=== PATIENT | female | born 1960 | race Caucasian/White ===

== ENCOUNTER 2017-08-10 09:07 | Inpatient (IN) ==
--- NOTE | 2017-08-10 09:51 | Emergency Department Note ---
Wound/Laceration HPI - General Chief Complaint: Wound/Laceration Stated Complaint: Diabetic ulcer Time Seen by Provider: 08/10/17 09:37 Source: patient Mode of arrival: wheelchair Limitations: no limitations - History of Present Illness HPI Narrative: This patient was sent to the ER from the wound care clinic for diabetic ulcer that is failing outpatient oral antibiotic treatment. Dr. Heredia is requesting admission and IV antibiotics. Otherwise feels well. Type 1 diabetes since age 17. She has had a right below-knee amputation. sHe has had this diabetic ulcer on the left zarco for a while. - Related Data Home Medications Medication Instructions Recorded Confirmed Insulin Lispro [Humalog] 0.7 units SQ Q1 08/20/15 08/10/17 Clopidogrel [Plavix] 75 mg PO DAILY 10/16/15 08/10/17 Aspirin [Adult Low Dose Aspirin EC] 81 mg PO DAILY 04/18/16 08/10/17 Eszopiclone [Lunesta] 3 mg PO DAILY 04/18/16 08/10/17 Ferrous Gluconate [Fergon] 324 mg PO BID 04/18/16 08/10/17 Furosemide [Lasix] 20 mg PO BID 04/18/16 08/10/17 HYDROcodone/APAP 5/325MG [[place] 1 - 2 tab PO Q4HP PRN 04/18/16 08/10/17 5/325Mg] Metoprolol Tartrate [Lopressor] 25 mg PO BID 04/18/16 08/10/17 Pregabalin [Lyrica] 225 mg PO TID 04/18/16 08/10/17 Sertraline [Zoloft] 100 mg PO DAILY 04/18/16 08/10/17 Sub-Q Insulin Pump, Cgm System 0.7 unit SQ Q1H 04/18/16 08/10/17 Atorvastatin [Lipitor] 20 mg PO HS 06/22/16 08/10/17 Lisinopril [Zestril] 5 mg PO DAILY 06/22/16 08/10/17 Allergies Allergy/AdvReac Type Severity Reaction Status Date / Time Hydromorphone AdvReac Intermediate Hallucinati Verified 08/10/17 09:10 ng Zolpidem [From Ambien] AdvReac Mild Other Verified 08/10/17 09:10 Review of Systems All systems ED: reviewed and negative except as stated. Past Medical History - Past Medical History [facility] Narrative: Medical History Congestive heart failure (Acute) Bilateral pleural effusion (Acute) Dilated cardiomyopathy (Acute) Edema, leg (Acute) SOB (shortness of breath) (Acute) Wound dehiscence (Acute) Alyssa infection of genital region (Acute) Delayed surgical wound healing (Acute) Cellulitis and abscess of leg (Acute) Right BKA infection (Acute) Cellulitis of right anterior lower leg (Acute) Treatment (Acute) Amputation stump infection (Acute) Anemia (Acute) Epigastric abdominal pain (Acute) Dyspepsia (Acute) Medical history: Reports: COPD, coronary artery disease, diabetes (Type 1 ID, HgbA1c in July greater then . ), other (Neuropathy of bilateral lower extremities. Chronic non-healing wounds of lower extremities. Bilateral tinea pedis. Retinopathy of diabetes.) Surgical history ED: Reports: coronary bypass (CABG), other (right foot amputation) Psychiatric history: Reports: no psych history [employer] history: Reports: bilateral tubal ligation - Social History smoking status: Former smoker Alcohol use: Reports: None Drug use: Reports: none Physical Exam Photos of the ulcer are attached to the chart along with the complete description by Dr. Heredia. - General Limitations: no limitations General appearance: alert, in no apparent distress - Head Head exam: atraumatic, normocephalic - Eye Eye exam: Present: normal appearance - ENT ENT exam: normal exam - Neck Neck exam: Present: normal inspection - Chest Chest inspection: Present: normal inspection - Respiratory Respiratory exam: Present: normal lung sounds bilaterally - Cardiovascular Cardiovascular exam: Present: regular rate, normal rhythm, normal heart sounds - Abdominal Exam Abdominal exam: Present: soft. Absent: distention, tenderness - Neurological Exam Neurological exam: Present: alert, oriented X3 - Psychiatric Psychiatric exam: Present: normal affect, normal mood - Skin Skin exam: Present: warm, dry, other Course Vital Signs Temperature 97.0 F 08/10/17 09:08 Pulse Rate 64 08/10/17 09:08 Respiratory Rate 14 08/10/17 09:08 Blood Pressure 126/63 08/10/17 09:08 Pulse Oximetry (%) 95 08/10/17 09:08 Temperature 97.0 F 08/10/17 09:08 Pulse Rate 64 08/10/17 09:08 Respiratory Rate 14 08/10/17 09:08 Blood Pressure 126/63 08/10/17 09:08 Pulse Oximetry (%) 95 08/10/17 09:08 Wound/Laceration - Lab Data Lab results reviewed: Yes I reviewed the patient's lab results. Result diagrams: 08/10/17 09:53 08/10/17 09:53 Lab Results 08/10/17 08/10/17 Range/Units 09:53 09:53 WBC 11.0 (4.5-11.0) K/mcL RBC 4.31 (4.00-5.20) M/mcL Hgb 12.7 (12.0-15.0) g/dL Hct 37.5 (36.0-48.0) % MCV 87.1 (80.0-100.0) fL MCH 29.4 (26.0-34.0) pg MCHC 33.7 (31.0-36.0) g/dL RDW 14.4 (11.5-14.5) % Plt Count 346 (140-440) K/mcL MPV 9.9 (7.4-10.4) fL Gran % 67.5 (38.0-78.0) % Lymph % (Auto) 22.0 (15.5-49.0) % Mccreary % (Auto) 7.6 (1.0-12.0) % Eos % (Auto) 2.2 (0.0-7.0) % Baso % (Auto) 0.7 (0.0-2.0) % Gran # 7.4 (1.8-8.0) K/mcL Lymph # (Auto) 2.4 (1.5-4.8) K/mcL Mccreary # (Auto) 0.8 (0.1-0.9) K/mcL Eos # (Auto) 0.2 (0.0-0.7) K/mcL Baso # (Auto) 0.1 (0.0-0.3) K/mcL Sodium 142 (133-145) mmol/L Potassium 4.2 (3.3-5.1) mmol/L Chloride 104 (96-108) mmol/L Carbon Dioxide 25 (22-30) mmol/L Anion Gap 13.0 (8-16) BUN 40 H (6-20) mg/dl Creatinine 1.5 H (0.6-1.1) mg/dl GFR Calculation 39 Glucose 68 L (70-105) mg/dL Hemoglobin A1c 7.2 H (4.0-6.0) % HGB Estim Average Glucose 160 mg/dL Calcium 9.0 (8.6-10.4) mg/dl Total Bilirubin 0.2 (0.0-1.0) mg/dL AST 19 (0-37) U/l ALT 15 (0-40) U/l Alkaline Phosphatase 117 (39-117) U/L C-React Prot High Sens 11.1 H (1.0-3.0) mg/L Total Protein 7.3 (5.9-8.4) gm/dL Albumin 4.1 (3.2-5.2) gm/dL Globulin 3.2 (2.2-3.7) gm/dL Albumin/Globulin Ratio 1.3 (1.0-2.3) Prealbumin 22.3 (20-40) mg/dl TSH 0.84 (0.27-5.01) uIU/ml Disposition Pt seen by DENTAL LABORATORY WORKER/PA only: No Clinical Impression: Cellulitis and abscess of leg Disposition: Xfer As Inpt ([facility]) Referrals: Traci Virgen MD [Primary Care Provider] - Time of Disposition: 11:47
[2017-08-10] MEDS ORDERED: cefTRIAXone 2 GM in DEXTROSE 5% IN WATER 50 ML IV ONE (09:55)
[2017-08-10] MEDS ORDERED: DAPTOmycin 500 MG VIAL IV SCH (10:00)
[2017-08-10 10:44] LABS: Basophils # (Auto) 0.1 K/mcL (0.0-0.3); Basophils % (Auto) 0.7 % (0.0-2.0); Eosinophils # (Auto) 0.2 K/mcL (0.0-0.7); Eosinophils % (Auto) 2.2 % (0.0-7.0); Granulocytes % (Auto) 67.5 % (38.0-78.0); Lymphocytes # (Auto) 2.4 K/mcL (1.5-4.8); Mean Cell Volume 87.1 fL (80.0-100.0); Mean Corpuscular HGB Conc 33.7 g/dL (31.0-36.0); Mean Corpuscular Hemoglobin 29.4 pg (26.0-34.0); Monocytes # (Auto) 0.8 K/mcL (0.1-0.9); Monocytes % (Auto) 7.6 % (1.0-12.0); Platelet Count 346 K/mcL (140-440); RBC 4.31 M/mcL (4.00-5.20); Red Cell Distribution Width 14.4 % (11.5-14.5)
[2017-08-10 11:13] LABS: ALT/SGPT 15 U/l (0-40); Albumin 4.1 gm/dL (3.2-5.2); Albumin/Globulin Ratio 1.3 (1.0-2.3); Alkaline Phosphatase 117 U/L (39-117); Blood Urea Nitrogen 40 mg/dl (6-20); CRP,High Sensitivity 11.1 mg/L (1.0-3.0)
[2017-08-10 11:16] LABS: Estimated Average Glucose(eAG) 160 mg/dL; Hemoglobin A1C 7.2 % HGB (4.0-6.0)
[2017-08-10 11:33] LABS: Prealbumin 22.3 mg/dl (20-40)
[2017-08-10] MEDS ORDERED: oxyCODONE HCL 5 MG TABLET PO PRN (14:03)
[2017-08-10] MEDS ORDERED: NALOXONE HCL 0.4 MG/ML VIAL IV PRN (14:03)
[2017-08-10] MEDS ORDERED: ALBUTEROL SULFATE 2.5 MG/3 ML NEBULIZER NEB PRN (14:03)
[2017-08-10] MEDS ORDERED: DEXTROSE 50% 50 ML VIAL IV PRN (14:03)
[2017-08-10] MEDS ORDERED: DEXTROSE 31 GM ORAL.SUSP PO PRN (14:03)
[2017-08-10] MEDS ORDERED: MAG HYDROX/AL HYDROX/SIMETH 30 ML ORAL.SUSP PO PRN (14:03)
[2017-08-10] MEDS ORDERED: ACETAMINOPHEN 325 MG TABLET PO PRN (14:03)
[2017-08-10] MEDS ORDERED: ONDANSETRON 4 MG/2 ML VIAL IV PRN (14:03)
[2017-08-10] MEDS ORDERED: VANCOMYCIN PER PHARMACY IV SCH (14:18)
[2017-08-10] MEDS: PIPERACILLIN SODIUM/TAZOBACTAM 3.375 GM in DEXTROSE 5% IN WATER 50 ML IV SCH ×2 (15:20→22:15)
[2017-08-10] MEDS: 0.9 % SODIUM CHLORIDE 10 ML SYRINGE IV SCH ×2 (15:20→20:48)
[2017-08-10] MEDS: VANCOMYCIN 1,500 MG in 0.9 % SODIUM CHLORIDE 500 ML IV SCH (15:58)
[2017-08-10] MEDS ORDERED: INSULIN LISPRO 1 UNIT/0.01 ML UNIT SQ SCH (17:00)
--- NOTE | 2017-08-10 17:18 | General Surgery Consult Note ---
History of Present Illness Patient information: Note initiated : 08/10/17 at 5:09 pm Service Date, if different from initiated Date: [] Patient: Mai Colon 56 y/o F admitted on 08/10/17 for Diabetic ulcer. Chief Complaint: [] Non Healing wound with ACUTE cellulitis and csssi left leg. Failed out patient treatment with Amoxil. Other co morbid conditions. IDDM, CAD, PAD ( RAJINDER 0.4 LLE ) S/P Right BKA Patient bumped her left leg at home few days ago. This led to swelling, redness , throbbing pain and low grade3 fever. Oral antibiotics did not help. Seen by PCP Dr. Traci Virgen MD. Patient referred to wound center for further evaluation and management. Local debridement and biopsy reveals fat necrosis and patient NOW has flare up of csssi with SPREADING cellulitis. Hence referred her to ER for further evaluation and observation in hospital. If she does NOT respond to IV antibiotics and local wound care, she will need OR surgical debridement. Patient is well aware of complications she had in past after emergency cardiac surgery, followed by multiple events related to PAD Right LE and finally a BKA. Medications and Allergies Home Medications Medication Instructions Recorded Confirmed Type Insulin Lispro [Humalog] 0.7 units SQ Q1 08/20/15 08/10/17 History Clopidogrel [Plavix] 75 mg PO DAILY 10/16/15 08/10/17 History Aspirin [Adult Low Dose Aspirin EC] 81 mg PO DAILY 04/18/16 08/10/17 History Eszopiclone [Lunesta] 3 mg PO HS 04/18/16 08/10/17 History Ferrous Gluconate [Fergon] 324 mg PO BID 04/18/16 08/10/17 History Furosemide [Lasix] 40 mg PO DAILY 04/18/16 08/10/17 History HYDROcodone/APAP 5/325MG [[place] 1 - 2 tab PO Q4HP PRN 04/18/16 08/10/17 History 5/325Mg] Metoprolol Tartrate [Lopressor] 25 mg PO BID 04/18/16 08/10/17 History Pregabalin [Lyrica] 225 mg PO BID 04/18/16 08/10/17 History Sertraline [Zoloft] 100 mg PO DAILY 04/18/16 08/10/17 History Atorvastatin [Lipitor] 20 mg PO HS 06/22/16 08/10/17 History Lisinopril [Zestril] 5 mg PO Q48 06/22/16 08/10/17 History Ascorbic Acid [Vitamin C] 1 tab PO DAILY 08/10/17 08/10/17 History Furosemide [Lasix] 20 mg PO HS 08/10/17 08/10/17 History Insulin Pump Cartridge [Cartridge 0.75 units SQ Q1 08/10/17 08/10/17 History Stamped] Multivitamin [One Daily] 1 tab PO DAILY 08/10/17 08/10/17 History Vitamin D3 [Vitamin D3] 1 tab PO DAILY 08/10/17 08/10/17 History Allergies Allergy/AdvReac Type Severity Reaction Status Date / Time Hydromorphone AdvReac Intermediate Hallucinati Verified 08/10/17 09:10 ng Zolpidem [From Ambien] AdvReac Mild Other Verified 08/10/17 09:10 Exam Temp Pulse Resp BP Pulse Ox 98.6 F 80 16 116/64 92 08/10/17 14:06 08/10/17 14:06 08/10/17 14:06 08/10/17 14:06 08/10/17 14:06 - General physical appearance well developed, well nourished, no distress, moderate pain, chronically ill, obese - Eyes PERRL, normal ocular movement - ENT normal pinna, normal nares, normal mucosa, no congestion - Head Head exam IM: Present: atraumatic, normal inspection, normocephalic - Neck no masses, no bruits, trachea midline, no lymphadectomy, no venous distension - Cardiovascular Cardiovascular exam IM: Present: normal rate and rhythm - Respiratory normal expansion, normal respiratory effort, clear to auscultation - Abdomen Abdomen: Present: soft, non tender, bowel sounds - Integumentary Present: other (RIGHT BKA. Healed surgical wounds. LEFT LEG Lower half diabetes, traumatic ulcer with necrotic adherent eschar in the mid portion with surrounding periwound tenderness and cellulitis as marked out on the leg. THis area of cellulitis extends proximally for 3 to 4 CMS. NO crepitus noted. ) - Neurologic Present: normal coordination, other (No focal neurological deficits noted. She had diabetes withperipheral neuropahty of left foot and ankle . ) - Musculoskeletal Present: other (RIght BKA prosthesis , ) - Psychiatric Present: oriented to time, oriented to person, oriented to place, speech is normal, memory intact Results - Labs 08/11/17 07:39 08/11/17 07:39 Abnormal lab results 08/10/17 Range/Units 09:53 BUN 40 H (6-20) mg/dl Creatinine 1.5 H (0.6-1.1) mg/dl Glucose 68 L (70-105) mg/dL Hemoglobin A1c 7.2 H (4.0-6.0) % HGB C-React Prot High Sens 11.1 H (1.0-3.0) mg/L Diabetes panel 08/10/17 Range/Units 09:53 Sodium 142 (133-145) mmol/L Potassium 4.2 (3.3-5.1) mmol/L Chloride 104 (96-108) mmol/L Carbon Dioxide 25 (22-30) mmol/L BUN 40 H (6-20) mg/dl Creatinine 1.5 H (0.6-1.1) mg/dl Glucose 68 L (70-105) mg/dL Hemoglobin A1c 7.2 H (4.0-6.0) % HGB Calcium 9.0 (8.6-10.4) mg/dl AST 19 (0-37) U/l ALT 15 (0-40) U/l Alkaline Phosphatase 117 (39-117) U/L Total Protein 7.3 (5.9-8.4) gm/dL Albumin 4.1 (3.2-5.2) gm/dL Thyroid panel 08/10/17 Range/Units 09:53 TSH 0.84 (0.27-5.01) uIU/ml Calcium panel 08/10/17 Range/Units 09:53 Calcium 9.0 (8.6-10.4) mg/dl Albumin 4.1 (3.2-5.2) gm/dL Pituitary panel 08/10/17 Range/Units 09:53 Sodium 142 (133-145) mmol/L Potassium 4.2 (3.3-5.1) mmol/L Chloride 104 (96-108) mmol/L Carbon Dioxide 25 (22-30) mmol/L BUN 40 H (6-20) mg/dl Creatinine 1.5 H (0.6-1.1) mg/dl Glucose 68 L (70-105) mg/dL Calcium 9.0 (8.6-10.4) mg/dl TSH 0.84 (0.27-5.01) uIU/ml Adrenal panel 08/10/17 Range/Units 09:53 Sodium 142 (133-145) mmol/L Potassium 4.2 (3.3-5.1) mmol/L Chloride 104 (96-108) mmol/L Carbon Dioxide 25 (22-30) mmol/L BUN 40 H (6-20) mg/dl Creatinine 1.5 H (0.6-1.1) mg/dl Glucose 68 L (70-105) mg/dL Calcium 9.0 (8.6-10.4) mg/dl Total Bilirubin 0.2 (0.0-1.0) mg/dL AST 19 (0-37) U/l ALT 15 (0-40) U/l Alkaline Phosphatase 117 (39-117) U/L Total Protein 7.3 (5.9-8.4) gm/dL Albumin 4.1 (3.2-5.2) gm/dL All other labs normal. Assessment and Plan (1) Cellulitis of left leg Status: Acute Priority: High Comment: PATIENT IS HIGH RISK for csssi and SEPSIS syndrome.. 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 (2) Cellulitis and abscess of leg Assessment: CSSSI Left lower leg and cellulitis. Plan: I V antibiotics and aggressive local wound care with WARM K PAD compress topically. ON for 20 mts and OFF for 4 hours ROUND the clock, If this is NOT responding to this regime, I plan to take her to the operating room for surgical debridement and wound lavage. HAD A LONG TALK WITH PATIENT, HER FAMILY AND NURSING STAFF. Status: Acute
[2017-08-10] MEDS: MUPIROCIN CRM 2% 15 GM TUBE TOPICAL SCH ×2 (17:24→20:48)
--- NOTE | 2017-08-10 18:26 | Internal Med History&Physical ---
Medical - H&P: HPI Patient information: Note initiated : 08/10/17 at 6:21 pm Service Date, if different from initiated Date: [] Patient: Mai oClon 56 y/o F admitted on 08/10/17 for Diabetic ulcer. Chief Complaint: [] History of present illness: Ms. Colon is a 56 year old Female with h/o DM, right DKA multiple medical issues presented to the ER from the wound care clinic for non healing wound on the left leg The pt has a chr left leg wound which she notes has been there for many years, she had ? injury to the left leg and this has been getting worse. Over the last 1 week the patients wound has increased considerably in size, with increased pain, increased warmth. The patient was given local wound treatment and oral antibiotics (amox? as per wound care physician) the patient also underwent wound biopsy and culture then, which is growing MSSA. According to the patient she took clindamycin, and took the medication twice daily. The patient otherwise does not endorse any other complaints, she lost her right leg to diabetic wound 2 yrs ago and is now very apprehensive about non healing wounds. Review of systems: CONSTITUTIONAL: No weight loss, fever, chills, weakness or fatigue. HEENT: Eyes: No visual loss, blurred vision, double vision or yellow sclerae. Ears, Nose, Throat: No hearing loss, sneezing, congestion, runny nose or sore throat. SKIN: No rash or itching. CARDIOVASCULAR: No chest pain, chest pressure or chest discomfort. No palpitations or edema. RESPIRATORY: No shortness of breath, cough or sputum. GASTROINTESTINAL: No nausea, vomiting or diarrhea or constipation. No abdominal pain or blood in stools No Shaylee. GENITOURINARY: Denies Burning on urination. Blood in urine, or foul smelling urine NEUROLOGICAL: No headache, dizziness, syncope, paralysis, tremors, numbness or tingling in the extremities. No change in bowel or bladder control. MUSCULOSKELETAL: No muscle, back pain, joint pain or stiffness. HEMATOLOGIC: No bleeding or bruising. No enlarged nodes PSYCHIATRIC: No depression or anxiety. ENDOCRINOLOGIC: No reports of sweating, cold or heat intolerance. No polyuria or polydipsia. ALLERGIES: No hives, eczema or rhinitis. Skin: No rash, no jaundice, cyanosis or pallor. . Medical - H&P: PMH Medical history: Medical History Congestive heart failure (Acute) Bilateral pleural effusion (Acute) Dilated cardiomyopathy (Acute) Edema, leg (Acute) SOB (shortness of breath) (Acute) Wound dehiscence (Acute) Alyssa infection of genital region (Acute) Delayed surgical wound healing (Acute) Cellulitis and abscess of leg (Acute) Right BKA infection (Acute) Cellulitis of right anterior lower leg (Acute) Treatment (Acute) Amputation stump infection (Acute) Anemia (Acute) Epigastric abdominal pain (Acute) Dyspepsia (Acute) Surgical history: cabg 2 yrs ago right bka Family history: reviewed and not pertinent Social history: non smoker, no etoh, or drugs Medical - H&P: Meds Home Medications Medication Instructions Recorded Confirmed Type Ascorbic Acid [Vitamin C] 1 tab PO DAILY 08/10/17 08/10/17 History Furosemide [Lasix] 20 mg PO HS 08/10/17 08/10/17 History Insulin Pump Cartridge [Cartridge 0.75 units SQ Q1 08/10/17 08/10/17 History Stamped] Multivitamin [One Daily] 1 tab PO DAILY 08/10/17 08/10/17 History Vitamin D3 [Vitamin D3] 1 tab PO DAILY 08/10/17 08/10/17 History Allergies Allergy/AdvReac Type Severity Reaction Status Date / Time Hydromorphone AdvReac Intermediate Hallucinati Verified 08/10/17 09:10 ng Zolpidem [From Ambien] AdvReac Mild Other Verified 08/10/17 09:10 Medical - H&P: Exam - Constitutional Vitals: Temp Pulse Resp BP Pulse Ox 97.9 F 73 14 100/58 94 08/10/17 17:33 08/10/17 17:33 08/10/17 17:33 08/10/17 17:33 08/10/17 17:33 Exam: GENERAL: The patient is a well-developed, well-nourished in no apparent distress. Is alert and oriented x3. VITAL SIGNS: Reviewed and as noted elsewhere. HEENT: Head is normocephalic and atraumatic. Extraocular muscles are intact. Pupils are equal, round, and reactive to light. Nares appeared normal. Mouth appears any without lesions. Mucous membranes are moist. NECK: Normal to inspection, Supple, No lymphadenopathy or thyromegaly. LUNGS: Air entry equal on both sides, no wheezing, crackles or rhonchi noted. No accessory muscles of respiration HEART: Regular rate and rhythm normal, S1 and S2 heard, no Gallop, S3 or Rub Noted, No Gross murmur heard. ABDOMEN: Soft, nontender, and nondistended. Positive bowel sounds. No hepatosplenomegaly was noted. EXTREMITIES: No cyanosis, clubbing, rash, lesions or edema. right bka. left leg has 3 cms ulcer, with necrotic/ infected base, surrounding cellulitis marked approx 6x8 cms. no fluctuation, noted increased local warmth NEUROLOGIC: Cranial nerves II through XII are grossly intact. Motor and Sensory System Grossly Intact PSYCHIATRIC: Normal affect, Normal Mood. Appropriate Behavior. SKIN: No ulceration or wounds noted, No jaundice, No rash noted. Medical - H&P: Reslt - Labs CBC & Chem 7: 08/10/17 09:53 08/10/17 09:53 Labs: Short CBC 08/10/17 Range/Units 09:53 WBC 11.0 (4.5-11.0) K/mcL Hgb 12.7 (12.0-15.0) g/dL Hct 37.5 (36.0-48.0) % Plt Count 346 (140-440) K/mcL BMP 08/10/17 09:53 Sodium 142 Potassium 4.2 Chloride 104 Carbon Dioxide 25 BUN 40 H Creatinine 1.5 H Glucose 68 L Calcium 9.0 Liver Function 08/10/17 Range/Units 09:53 Total Bilirubin 0.2 (0.0-1.0) mg/dL AST 19 (0-37) U/l ALT 15 (0-40) U/l Alkaline Phosphatase 117 (39-117) U/L Albumin 4.1 (3.2-5.2) gm/dL Medical - H&P: A/P - Narrative A/P Narrative: A/P Diabetic wound with cellutlitis, failed outpatient treatment DM CAD CHF PVD HTN/ HLD DM neuropathy Plan Labs reviewed, no e/o sirs or sepsis, afebrile IV vanco and zoysn for now, monitor for response, given failure of outpatient antibiotics Wound care consult, may need debridement if antibiotics does not work if responds well will d/c with oral antibiotics patient ok to use her home insulin pump, we will still monitor her glucose levels. Resume home meds once verified DVT hep sq Cardiac diabetic diet Full code. Medical - H&P: Qual - VTE Deep Vein Thrombosis/Pulmonary Embolism Present on Admission: No
[2017-08-10] MEDS: HEPARIN 5,000 UNIT/ML VIAL SQ SCH (20:46)
[2017-08-10] MEDS: FERROUS GLUCONATE 324 MG TABLET PO SCH (20:47)
[2017-08-10] MEDS: ATORVASTATIN 20 MG TABLET PO SCH (20:47)
[2017-08-10] MEDS: PREGABALIN 75 MG CAPSULE PO SCH (20:48)
[2017-08-10] MEDS: PREGABALIN 150 MG CAPSULE PO SCH (20:48)
[2017-08-10] MEDS: METOPROLOL TARTRATE 25 MG TABLET PO SCH (20:48)
[2017-08-10] MEDS ORDERED: FUROSEMIDE 20 MG TABLET PO SCH (21:00)
[2017-08-10] MEDS: LUNESTA 3 MG PO SCH (22:16)
[2017-08-11] MEDS: [UNRECOGNIZED DRUG - OTHER] SQ SCH ×2 (00:17→00:18)
[2017-08-11] MEDS: INSULIN LISPRO 1 UNIT/0.01 ML UNIT SQ SCH ×10 (00:18→16:06)
[2017-08-11] MEDS: 0.9 % SODIUM CHLORIDE 10 ML SYRINGE IV SCH ×3 (05:43→20:49)
[2017-08-11] MEDS: PIPERACILLIN SODIUM/TAZOBACTAM 3.375 GM in DEXTROSE 5% IN WATER 50 ML IV SCH ×3 (05:43→20:59)
[2017-08-11] MEDS ORDERED: INSULIN LISPRO 1 UNIT/0.01 ML UNIT SQ SCH (07:30)
[2017-08-11] MEDS ORDERED: 0.9 % SODIUM CHLORIDE 1,000 ML IV SCH (07:45)
[2017-08-11] MEDS: METOPROLOL TARTRATE 25 MG TABLET PO SCH ×2 (08:04→20:49)
[2017-08-11] MEDS: VITAMIN D3 1,000 UNIT TABLET PO SCH (08:04)
[2017-08-11] MEDS: PREGABALIN 75 MG CAPSULE PO SCH ×2 (08:04→20:48)
[2017-08-11] MEDS: PREGABALIN 150 MG CAPSULE PO SCH ×2 (08:04→20:49)
[2017-08-11] MEDS: FERROUS GLUCONATE 324 MG TABLET PO SCH ×2 (08:04→20:48)
[2017-08-11] MEDS: ASPIRIN 81 MG TAB.CHEW PO SCH (08:04)
[2017-08-11] MEDS: CLOPIDOGREL 75 MG TABLET PO SCH (08:04)
[2017-08-11] MEDS: MUPIROCIN CRM 2% 15 GM TUBE TOPICAL SCH ×2 (08:05→23:29)
[2017-08-11] MEDS: HEPARIN 5,000 UNIT/ML VIAL SQ SCH ×2 (08:05→20:48)
[2017-08-11] MEDS: SERTRALINE 100 MG TABLET PO SCH (08:06)
[2017-08-11 08:28] LABS: Basophils # (Auto) 0 K/mcL (0.0-0.3); Basophils % (Auto) 0.5 % (0.0-2.0); Eosinophils # (Auto) 0.4 K/mcL (0.0-0.7); Eosinophils % (Auto) 4.6 % (0.0-7.0); Granulocytes % (Auto) 66.3 % (38.0-78.0); Lymphocytes # (Auto) 1.5 K/mcL (1.5-4.8); Lymphocytes % (Auto) 18.6 % (15.5-49.0); Mean Cell Volume 87.4 fL (80.0-100.0); Mean Corpuscular HGB Conc 33.7 g/dL (31.0-36.0); Mean Corpuscular Hemoglobin 29.5 pg (26.0-34.0); Monocytes # (Auto) 0.8 K/mcL (0.1-0.9); Platelet Count 307 K/mcL (140-440); RBC 4.12 M/mcL (4.00-5.20); Red Cell Distribution Width 14.2 % (11.5-14.5)
[2017-08-11 08:44] LABS: Blood Urea Nitrogen 36 mg/dl (6-20)
[2017-08-11] MEDS ORDERED: FUROSEMIDE 20 MG TABLET PO SCH (09:00)
[2017-08-11] MEDS: VANCOMYCIN 1,500 MG in 0.9 % SODIUM CHLORIDE 500 ML IV SCH (09:29)
--- NOTE | 2017-08-11 12:03 | Internal Med Progress Note ---
Medical - PN: Subj Patient information: Note initiated : 08/11/17 at 11:59 am Service Date, if different from initiated Date: [] Patient: Mai Colon 56 y/o F admitted on 08/10/17 for Diabetic ulcer. Chief Complaint: [] Interval history: Ms. Colon is a 56 year old Female with h/o DM, right DKA multiple medical issues presented to the ER from the wound care clinic for non healing wound on the left leg The pt has a chr left leg wound which she notes has been there for many years, she had ? injury to the left leg and this has been getting worse. Over the last 1 week the patients wound has increased considerably in size, with increased pain, increased warmth. The patient was given local wound treatment and oral antibiotics (amox? as per wound care physician) the patient also underwent wound biopsy and culture then, which is growing MSSA. According to the patient she took clindamycin, and took the medication twice daily. The patient otherwise does not endorse any other complaints, she lost her right leg to diabetic wound 2 yrs ago and is now very apprehensive about non healing wounds. august 11 Patient seen examined, no acute issues patient doing well, tolerating po diet well creat is 1.6, was 1.5 yesterday, IV fluids today, hold lasix patient wound looks good, erythema improving, wound care following, remains on vanco and zosyn Pertinent ROS: Denies headache, dizziness Denies chest pain, palpitations Denies cough or shortness of breath Denies abdominal pain, nausea or vomiting. - Constitutional Vitals: Vital Signs Temp Pulse Resp BP Pulse Ox 98.1 F 72 18 118/70 94 08/11/17 07:42 08/11/17 04:31 08/11/17 07:42 08/11/17 07:42 08/11/17 07:42 Period Temp Pulse Resp BP Sys/Zamora Pulse Ox Last 24 Hr 97.0 F-98.9 F 64-80 14-18 100-133/58-73 92-95 Intake and Output 08/10/17 08/11/17 08/11/17 21:59 05:59 13:59 Intake Total 790 / 790 550 / 550 50 / 50 Output Total 250 / 250 250 / 250 Balance 540 / 540 300 / 300 50 / 50 Weight 221 lb Intake & Output: Intake & Output 08/10/17 08/11/17 08/11/17 21:59 05:59 13:59 Intake Total 790 / 790 550 / 550 50 / 50 Output Total 250 / 250 250 / 250 Balance 540 / 540 300 / 300 50 / 50 Weight 221 lb Intake: IV 550 / 550 50 / 50 50 / 50 Zosyn 3.375 gm In Dextrose 5% 50 / 50 50 / 50 50 / 50 in Water 50 ml @ 100 mls/hr IV Q8H [facility] Rx#:[id number] Vancomycin 1,500 mg In Sodium 500 / 500 Chloride 0.9% 500 ml @ 333.3 mls/hr IV DAILY [facility]ARY Rx#: [id number] Oral 240 / 240 500 / 500 Output: Void Amount 250 / 250 250 / 250 Other: Meal Breakfast applesauce and carolin crackers Percent of Meal Consumed 100% 100% Feeding Ability Independent # Voids 1 # Bowel Movements 1 Exam: Constitutional; Afebrile, cooperative, alert, not in distress. Eyes- No icterus, , No periorbital swelling Ears- Ext ear normal, hearing normal to conversation. Neck- Midline trachea, supple Respiratory system: Air Entry equal on both sides, No crackles or wheezing, no rhonchi. CVS- Rate rhythm regular, S1,S2 heard, no gallop, no rub. Abdomen- Soft nontender abdomen, no organomegaly, no tenderness, no guarding or rigidity, [employer]- AOOx3, moving all extremities, no gross focal deficit noted. Right leg s/p amputation, left leg wound improved erythema. Medical - PN: Obj Da - Labs CBC & Chem 7: 08/11/17 07:39 08/11/17 07:39 Labs: Abnormal Lab Results 08/11/17 08/10/17 07:39 09:53 BUN 36 H 40 H Creatinine 1.6 H 1.5 H Glucose 117 H 68 L Hemoglobin A1c 7.2 H Calcium 8.5 L C-React Prot High Sens 11.1 H Meds: Medications Acetaminophen (Tylenol) 650 mg PO Q6HP PRN PRN Reason: PAIN/FEVER > 101 Last Admin: 08/10/17 21:01 Dose: 650 mg Al Hydrox/Mg Hydrox/Simethicone (Maalox) 30 ml PO Q6HP PRN PRN Reason: Dyspepsia Albuterol Sulfate (Ventolin) 2.5 mg NEB Q2HP PRN PRN Reason: Shortness Of Breath Aspirin (Aspirin) 81 mg PO DAILY [facility] Last Admin: 08/11/17 08:04 Dose: 81 mg Atorvastatin Calcium (Lipitor) 20 mg PO HS [facility] [place] Last Admin: 08/10/17 20:47 Dose: 20 mg Clopidogrel Bisulfate (Plavix) 75 mg PO DAILY [facility] [place] Last Admin: 08/11/17 08:04 Dose: 75 mg Dextrose (Dextrose 50%) 0 ml IV UD PRN PRN Reason: Hypoglycemia Diagnostic Test (Pha) (Accu-Chek) 1 each FS ACHS [facility] [place] Last Admin: 08/11/17 08:05 Dose: 1 each Ferrous Gluconate (Fergon) 324 mg PO BID [facility] [place] Last Admin: 08/11/17 08:04 Dose: 324 mg Glucose (Insta-Glucose) 15 gm PO PRN PRN PRN Reason: Hypoglycemia Heparin Sodium (Porcine) (Heparin) 5,000 unit SQ Q12 [facility] [place] Last Admin: 08/11/17 08:05 Dose: 5,000 unit Piperacillin Sod/Tazobactam (Sod 3.375 gm/ Dextrose) 50 mls @ 100 mls/hr IV Q8H [facility] [place] Last Infusion: 08/11/17 06:15 Dose: Infused Vancomycin HCl 1,500 mg/ (Sodium Chloride) 500 mls @ 333.3 mls/hr IV DAILY [facility] [place] Last Admin: 08/11/17 09:29 Dose: 333.3 mls/hr Sodium Chloride (Sodium Chloride 0.9%) 1,000 mls @ 125 mls/hr IV .Q8H [facility] Stop: 08/11/17 15:44 Last Admin: 08/11/17 08:05 Dose: Not Given Insulin Human Lispro (Humalog) 0.75 unit SQ Q1 [facility] Last Admin: 08/11/17 11:27 Dose: Not Given Lisinopril (Zestril) 5 mg PO Q48 [facility] Metoprolol Tartrate (Lopressor) 25 mg PO BID [facility] [place] Last Admin: 08/11/17 08:04 Dose: 25 mg Mupirocin (Bactroban Crm 2%) 1 gm TOPICAL BID [facility] [place] Last Admin: 08/11/17 08:05 Dose: 1 gm Naloxone HCl (Narcan) 0.1 mg IV Q2MIN PRN PRN Reason: Opiate Reversal Ondansetron HCl (Zofran) 4 mg IV Q6HP PRN PRN Reason: Nausea And Vomiting Oxycodone HCl (Roxicodone) 5 mg PO Q4HP PRN PRN Reason: Pain Lunesta 3 Mg 1 dose PO HS [facility] [place] Last Admin: 08/10/17 22:16 Dose: 1 dose Pregabalin (Lyrica) 150 mg PO BID [facility] [place] Last Admin: 08/11/17 08:04 Dose: 150 mg Pregabalin (Lyrica) 75 mg PO BID [facility] [place] Last Admin: 08/11/17 08:04 Dose: 75 mg Sertraline HCl (Zoloft) 100 mg PO DAILY [facility] [place] Last Admin: 08/11/17 08:06 Dose: 100 mg Sodium Chloride (Saline Flush) 10 ml IV Q8 [facility] [place] Last Admin: 08/11/17 05:43 Dose: 10 ml Vancomycin HCl (Vancomycin Per Pharmacy) 1 order IV UD [facility] Vitamin D (Vitamin D3) 1,000 unit PO DAILY [facility] [place] Last Admin: 08/11/17 08:04 Dose: 1,000 unit Medical - PN: A/P - Time Spent With Patient Total time spent is greater than 50% in coordination of care (as documented) at patient's floor/unit and/or counseling patient: - Narrative A/P Narrative: A/P Diabetic wound with cellulitis, failed outpatient treatment DM CAD CHF PVD HTN/ HLD DM neuropathy Plan Clinically improving Labs reviewed, no e/o sirs or sepsis, afebrile IV vanco and zoysn for now, good response so far, d/c plan as per wound care. Wound care consult, may need debridement if antibiotics does not work patient ok to use her home insulin pump, we will still monitor her glucose levels. home meds resumed. DVT hep sq Cardiac diabetic diet Full code. Medical - PN: Qual - VTE Deep Vein Thrombosis/Pulmonary Embolism Present on Admission: No
--- NOTE | 2017-08-11 16:58 | General Surgery Progress Note ---
Subjective Patient reports: feels better, afebrile, other (Uneventful night. Throbbing Left leg is less. ) Narrative: Note initiated : 08/11/17 at 4:56 pm Service Date, if different from initiated Date: [] Patient: Mai Colon 56 y/o F admitted on 08/10/17 for Diabetic ulcer. Chief Complaint: [] Objective Temp Pulse Resp BP Pulse Ox 97.9 F 72 18 124/65 93 08/11/17 16:00 08/11/17 04:31 08/11/17 16:00 08/11/17 16:00 08/11/17 16:00 AVSS, HD stable . No interval changes in ZEESHAN. L/E Significant improvement with RESOLVING erythema and cellulitis. Periwound margianl callous is drying up and adherent black eschar is also demarcating well. - Additional Data Intake & Output - Last 24 hours: Intake & Output 08/09/17 08/10/17 08/11/17 08/12/17 05:59 05:59 05:59 05:59 Intake Total 1390 / 1390 830 / 830 Output Total 500 / 500 750 / 750 Balance 890 / 890 80 / 80 Weight 221 lb - Labs 08/11/17 07:39 08/11/17 07:39 Diabetes panel 08/11/17 Range/Units 07:39 Sodium 140 (133-145) mmol/L Potassium 4.4 (3.3-5.1) mmol/L Chloride 104 (96-108) mmol/L Carbon Dioxide 23 (22-30) mmol/L BUN 36 H (6-20) mg/dl Creatinine 1.6 H (0.6-1.1) mg/dl Glucose 117 H (70-105) mg/dL Calcium 8.5 L (8.6-10.4) mg/dl Calcium panel 08/11/17 Range/Units 07:39 Calcium 8.5 L (8.6-10.4) mg/dl Pituitary panel 08/11/17 Range/Units 07:39 Sodium 140 (133-145) mmol/L Potassium 4.4 (3.3-5.1) mmol/L Chloride 104 (96-108) mmol/L Carbon Dioxide 23 (22-30) mmol/L BUN 36 H (6-20) mg/dl Creatinine 1.6 H (0.6-1.1) mg/dl Glucose 117 H (70-105) mg/dL Calcium 8.5 L (8.6-10.4) mg/dl Adrenal panel 08/11/17 Range/Units 07:39 Sodium 140 (133-145) mmol/L Potassium 4.4 (3.3-5.1) mmol/L Chloride 104 (96-108) mmol/L Carbon Dioxide 23 (22-30) mmol/L BUN 36 H (6-20) mg/dl Creatinine 1.6 H (0.6-1.1) mg/dl Glucose 117 H (70-105) mg/dL Calcium 8.5 L (8.6-10.4) mg/dl Assessment and Plan (1) Cellulitis of left leg Problem details: PATIENT IS HIGH RISK for csssi and SEPSIS syndrome.. 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 Status: Acute Assessment and plan: Assessment: Left leg periwound cellulitis and csssi is responding to aggressive local wound care and systemic antibiotics, Elevated Hb A1C and CRP. Will monitor trend. PLAN: CONTINUE CURRENT TREATMENT. Reassess in AM NOT planing on O R surgical debridement at this time. If progressing well clinically, consider discharge on oral antibiotics and close follow up in clinic. SPOKE WITH patient and her Hugo Colon. Current Visit: Yes (2) Cellulitis and abscess of leg Status: Acute Current Visit: Yes - Time Spent With Patient Total time spent is greater than 50% in coordination of care (as documented) at patient's floor/unit and/or counseling patient:
[2017-08-11 17:07] LABS: Appearance,Urine CLEAR; Bacteria,Urine 0 /hpf (0); Bilirubin,Urine NEG (NEG); Color,Urine YELLOW; Glucose,Urine (UA) NEGATIVE (NEG); Leukocyte Esterase,Urine NEG /uL (NEG); Nitrate,Urine NEG (NEG); Protein,Urine NEG (NEG); Specific Gravity,Urine 1.015 (1.000-1.035); Urine Blood NEG mg/dL (<0.03); Urine Hyaline Cast 1 /lpf (0-2); Urine RBC 0 /hpf (0-1); Urine Squamous Epithelial Cell 3 /hpf (0-4); Urine WBC 2 /hpf (0-4); Urobilinogen,Urine NEG (NEG)
[2017-08-11] MEDS: ATORVASTATIN 20 MG TABLET PO SCH (20:48)
[2017-08-11] MEDS: LUNESTA 3 MG PO SCH (20:49)
[2017-08-12] MEDS: 0.9 % SODIUM CHLORIDE 10 ML SYRINGE IV SCH (05:57)
[2017-08-12] MEDS: PIPERACILLIN SODIUM/TAZOBACTAM 3.375 GM in DEXTROSE 5% IN WATER 50 ML IV SCH (06:06)
[2017-08-12 07:33] LABS: Basophils # (Auto) 0.1 K/mcL (0.0-0.3); Basophils % (Auto) 0.9 % (0.0-2.0); Eosinophils # (Auto) 0.5 K/mcL (0.0-0.7); Eosinophils % (Auto) 4.7 % (0.0-7.0); Granulocytes % (Auto) 59.3 % (38.0-78.0); Lymphocytes # (Auto) 2.6 K/mcL (1.5-4.8); Lymphocytes % (Auto) 25.9 % (15.5-49.0); Mean Cell Volume 87.7 fL (80.0-100.0); Mean Corpuscular HGB Conc 33.7 g/dL (31.0-36.0); Mean Corpuscular Hemoglobin 29.5 pg (26.0-34.0); Monocytes # (Auto) 0.9 K/mcL (0.1-0.9); Monocytes % (Auto) 9.2 % (1.0-12.0); Platelet Count 327 K/mcL (140-440); RBC 4.35 M/mcL (4.00-5.20); Red Cell Distribution Width 14.4 % (11.5-14.5)
[2017-08-12 08:03] LABS: ALT/SGPT 15 U/l (0-40); Albumin 3.8 gm/dL (3.2-5.2); Albumin/Globulin Ratio 1.2 (1.0-2.3); Alkaline Phosphatase 113 U/L (39-117); Bilirubin,Direct < 0.2 mg/dL (0.0-0.3); Blood Urea Nitrogen 36 mg/dl (6-20); CRP,High Sensitivity 34.1 mg/L (1.0-3.0); Gamma Glutamyl Transpeptidase 24 U/L (5-36); Magnesium 2.5 mg/dL (1.6-2.5); Uric Acid 6.9 mg/dL (2.5-8.0)
[2017-08-12] MEDS ORDERED: LISINOPRIL 5 MG TABLET PO SCH (09:00)
--- NOTE | 2017-08-12 09:11 | XRay Report ---
HISTORY: Reason for Exam:Cellultis left lower leg and open wound FINDINGS: There is an open wound in the skin in the anterior/lateral aspect of the calf. There is some radiopaque ointment along the margin of the wound. The underlying bones are normal without evidence of osteomyelitis. There is atherosclerotic plaque formation at multiple arteries throughout the calf and around the knee. The knee and ankle joint spaces are normal in width and alignment. Moderate size spur is present along the top of the patella. IMPRESSION: Open wound with surrounding soft tissue swelling in the anterolateral mid calf. No evidence of osteomyelitis or underlying bone abnormality Interpreted and Authenticated by: Sudeep Chavis 08/12/17
[2017-08-12] MEDS: PREGABALIN 150 MG CAPSULE PO SCH (09:14)
[2017-08-12] MEDS: METOPROLOL TARTRATE 25 MG TABLET PO SCH (09:14)
[2017-08-12] MEDS: CLOPIDOGREL 75 MG TABLET PO SCH (09:14)
[2017-08-12] MEDS: ASPIRIN 81 MG TAB.CHEW PO SCH (09:14)
[2017-08-12] MEDS: PREGABALIN 75 MG CAPSULE PO SCH (09:14)
[2017-08-12] MEDS: VITAMIN D3 1,000 UNIT TABLET PO SCH (09:14)
[2017-08-12] MEDS: HEPARIN 5,000 UNIT/ML VIAL SQ SCH (09:14)
[2017-08-12] MEDS: FERROUS GLUCONATE 324 MG TABLET PO SCH (09:14)
[2017-08-12] MEDS: MUPIROCIN CRM 2% 15 GM TUBE TOPICAL SCH (09:15)
[2017-08-12] MEDS: SERTRALINE 100 MG TABLET PO SCH (09:17)
[2017-08-12] MEDS: VANCOMYCIN 1,500 MG in 0.9 % SODIUM CHLORIDE 500 ML IV SCH (10:37)
[2017-08-12] MEDS ORDERED: VANCOMYCIN 1,000 MG in 0.9 % SODIUM CHLORIDE 250 ML IV SCH (11:00)
--- NOTE | 2017-08-12 11:47 | General Surgery Progress Note ---
Subjective Patient reports: no new complaints, other (Uneventful night. Doing well and keen to go home now. ) Narrative: Note initiated : 08/12/17 at 11:43 am Service Date, if different from initiated Date: [] Patient: Mai Colon 56 y/o F admitted on 08/10/17 for Diabetic ulcer. Chief Complaint: [] Objective Temp Pulse Resp BP Pulse Ox 98.2 F 69 16 104/62 95 08/12/17 11:18 08/12/17 04:33 08/12/17 11:18 08/12/17 11:18 08/12/17 11:18 AVSS. ZEESHAN No interval changes. L/E: SIGNIFICANT improvement with resolution of cellulitis. NO erythema, No tenderness, No drainage and NO Odor or pruritus around the DRY and CLEAN demarcating eschar due to silver nitrate cauterization earlier. Labs ; Staph aureus 08/05/2017 Sensitive to Bactrim and Doxycycline. CBC Normal Glucose under 150, creatinine 1.4 ( Baseline for her ) C reactive protein elevation persists, but he wound eschar is demarcating well. - Additional Data Intake & Output - Last 24 hours: Intake & Output 08/10/17 08/11/17 08/12/17 08/13/17 05:59 05:59 05:59 05:59 Intake Total 1390 / 1390 1760 / 1760 300 / 300 Output Total 500 / 500 1525 / 1525 Balance 890 / 890 235 / 235 300 / 300 Weight 221 lb 219 lb 8 oz - Labs 08/12/17 06:00 08/12/17 06:00 Diabetes panel 08/12/17 Range/Units 06:00 Sodium 141 (133-145) mmol/L Potassium 4.7 (3.3-5.1) mmol/L Chloride 105 (96-108) mmol/L Carbon Dioxide 22 (22-30) mmol/L BUN 36 H (6-20) mg/dl Creatinine 1.4 H (0.6-1.1) mg/dl Glucose 152 H (70-105) mg/dL Calcium 8.8 (8.6-10.4) mg/dl AST 15 (0-37) U/l ALT 15 (0-40) U/l Alkaline Phosphatase 113 (39-117) U/L Total Protein 7.0 (5.9-8.4) gm/dL Albumin 3.8 (3.2-5.2) gm/dL Triglycerides 184 H (<150) mg/dl Calcium panel 08/12/17 Range/Units 06:00 Calcium 8.8 (8.6-10.4) mg/dl Phosphorus 3.9 (2.7-4.5) mg/dL Albumin 3.8 (3.2-5.2) gm/dL Pituitary panel 08/12/17 Range/Units 06:00 Sodium 141 (133-145) mmol/L Potassium 4.7 (3.3-5.1) mmol/L Chloride 105 (96-108) mmol/L Carbon Dioxide 22 (22-30) mmol/L BUN 36 H (6-20) mg/dl Creatinine 1.4 H (0.6-1.1) mg/dl Glucose 152 H (70-105) mg/dL Calcium 8.8 (8.6-10.4) mg/dl Adrenal panel 08/12/17 Range/Units 06:00 Sodium 141 (133-145) mmol/L Potassium 4.7 (3.3-5.1) mmol/L Chloride 105 (96-108) mmol/L Carbon Dioxide 22 (22-30) mmol/L BUN 36 H (6-20) mg/dl Creatinine 1.4 H (0.6-1.1) mg/dl Glucose 152 H (70-105) mg/dL Calcium 8.8 (8.6-10.4) mg/dl Total Bilirubin 0.2 (0.0-1.0) mg/dL AST 15 (0-37) U/l ALT 15 (0-40) U/l Alkaline Phosphatase 113 (39-117) U/L Total Protein 7.0 (5.9-8.4) gm/dL Albumin 3.8 (3.2-5.2) gm/dL Assessment and Plan (1) Cellulitis of left leg Problem details: PATIENT IS HIGH RISK for csssi and SEPSIS syndrome.. 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 Status: Acute Assessment and plan: Assessment: Left leg periwound cellulitis and csssi is responding to aggressive local wound care and systemic antibiotics, Elevated Hb A1C and CRP. Will monitor trend. PLAN: CONTINUE CURRENT TREATMENT. Reassess in AM NOT planing on O R surgical debridement at this time. If progressing well clinically, consider discharge on oral antibiotics and close follow up in clinic. SPOKE WITH patient and her Hugo Colon. Current Visit: Yes (2) Cellulitis and abscess of leg Status: Acute Assessment and plan: Assessment: Satisfactory progress and resolution of acute cellulitis. Plan: D/C home on PO Bactrim and Doxycycline Topical Bactroban ointment BID F/U at the clinic on Tuesday 08/14 0monday08/15/2017 Spoke with patient at length and explained about local wound care in presence of wander CORREA. Current Visit: Yes - Time Spent With Patient Total time spent is greater than 50% in coordination of care (as documented) at patient's floor/unit and/or counseling patient: 25 - 35 minutes
[2017-08-12] MEDS ORDERED: MUPIROCIN OINT 2% 22GM TOPICAL SCH (12:00)
--- NOTE | 2017-08-12 13:23 | Discharge Summary ---
Medical - DS: Prov Patient information: Note initiated : 08/12/17 at 1:14 pm Patient: Mai Colon 56 y/o F admitted on 08/10/17 for Diabetic ulcer. Date of admission: 08/10/17 13:22 Discharge date: 08/12/17 Primary care physician: Traci Virgen Admitting clinician: Chuyita Gonzalez Consults: 08/10/17 17:07 Consult to Physician [CONS] Routine Comment: Consulting Provider: Bart Knutson Reason For Exam: Physician to Consult Attending physician on discharge: Yvonne Bill Medical - DS: Meds - Discharge Medications Prescriptions: Doxycycline Monohydrate [Mondoxyne Nl] 100 mg PO BID #20 cap Mupirocin Oint 2% [Bactroban Oint 2%] 1 dose TOPICAL BID #45 tube Sulfamethoxazole/Trimethoprim [Bactrim Ds Tablet] 1 each PO BID #20 tab Active and Home Medications: Discharge medications: Bactrim DS 1 p.o. twice daily, for 10 days, and then ask for instructions Doxycycline 100 mg p.o. twice daily, then follow-up with Dr. Flaco Wangrocin ointment, apply to wound twice daily after cleansing next line Tylenol 650 mg every 6 hours as needed next line aspirin 81 mg daily Vitamin C 1000 mg daily Lipitor 20 mg nightly Plavix 75 mg daily Lunesta 3 mg nightly as needed Iron gluconate 324 mg twice daily Lasix 40 mg every morning, 20 mg nightly [place] 5/325 1-2 every 4 hours as needed pain Insulin pump as directed Humalog insulin as directed Lisinopril 5 mg every 48 hours Metoprolol 25 mg p.o. twice daily Multivitamin 1 daily Lyrica 225 mg twice daily Sertraline 100 mg daily Vitamin D 1000 units daily Previous home Medications: Insulin Lispro [Humalog] 0.7 units SQ Q1 08/20/15 [History Confirmed 08/10/17 Last Taken 08/10/17] Clopidogrel [Plavix] 75 mg PO DAILY 10/16/15 [History Confirmed 08/10/17 Last Taken 08/10/17] Aspirin [Adult Low Dose Aspirin EC] 81 mg PO DAILY 04/18/16 [History Confirmed 08/10/17 Last Taken 08/10/17] Eszopiclone [Lunesta] 3 mg PO HS 04/18/16 [History Confirmed 08/10/17 Last Taken 08/09/17] Ferrous Gluconate [Fergon] 324 mg PO BID 04/18/16 [History Confirmed 08/10/17 Last Taken 08/10/17] Furosemide [Lasix] 40 mg PO DAILY 04/18/16 [History Confirmed 08/10/17 Last Taken 08/10/17] HYDROcodone/APAP 5/325MG [[place] 5/325Mg] 1 - 2 tab PO Q4HP PRN 04/18/16 [ History Confirmed 08/10/17 Last Taken 06/21/16 21:00] Metoprolol Tartrate [Lopressor] 25 mg PO BID 04/18/16 [History Confirmed Last Taken 08/10/17] Pregabalin [Lyrica] 225 mg PO BID 04/18/16 [History Confirmed 08/10/17 Last Taken 08/10/17] Sertraline [Zoloft] 100 mg PO DAILY 04/18/16 [History Confirmed 08/10/17 Last Taken 08/10/17] Atorvastatin [Lipitor] 20 mg PO HS 06/22/16 [History Confirmed 08/10/17 Last Taken 08/09/17] Lisinopril [Zestril] 5 mg PO Q48 06/22/16 [History Confirmed 08/10/17 Last Taken 08/08/17] Ascorbic Acid [Vitamin C] 1 tab PO DAILY 08/10/17 [History Confirmed 08/10/17 Last Taken 08/10/17] Furosemide [Lasix] 20 mg PO HS 08/10/17 [History Confirmed 08/10/17 Last Taken 08/09/17] Insulin Pump Cartridge [Cartridge Stamped] 0.75 units SQ Q1 08/10/17 [History Confirmed 08/10/17 Last Taken 08/10/17] Multivitamin [One Daily] 1 tab PO DAILY 08/10/17 [History Confirmed 08/10/17 Last Taken 08/10/17] Vitamin D3 [Vitamin D3] 1 tab PO DAILY 08/10/17 [History Confirmed 08/10/17 Last Taken Unknown] Medical - DS: Hosp Hospital course: Mr. Colon is a 56 year old F August 10, 2017: History of present illness: Ms. Colon is a 56 year old Female with h/o DM, right DKA multiple medical issues presented to the ER from the wound care clinic for non healing wound on the left leg. The pt has a chr left leg wound which she notes has been there for many years, she had ? injury to the left leg and this has been getting worse. Over the last 1 week the patients wound has increased considerably in size, with increased pain, increased warmth. The patient was given local wound treatment and oral antibiotics (amox? as per wound care physician) the patient also underwent wound biopsy and culture then, which is growing MSSA. According to the patient she took clindamycin, and took the medication twice daily. The patient otherwise does not endorse any other complaints, she lost her right leg to diabetic wound 2 yrs ago and is now very apprehensive about non healing wounds. august 11 Patient seen examined, no acute issues patient doing well, tolerating po diet well creat is 1.6, was 1.5 yesterday, IV fluids today, hold lasix patient wound looks good, erythema improving, wound care following, remains on vanco and zosyn August 12: Hospital course: This patient was admitted with a left lower leg diabetic ulcer. Started on IV Zosyn and vancomycin. The surrounding cellulitis has been improving steadily. Today, Dr. Che feels she is improved enough, that she can be switched back to oral antibiotics, with continued local wound care. The patient says she is feeling well. She denies significant pain, fever or chills, chest pain or shortness of breath, abdominal pain nausea or vomiting. She is having slightly loose stools, which she says often happens with antibiotics. She denies dysuria. On exam, she is awake and alert, in no acute distress. Vital signs are normal. Neck shows no obvious lymphadenopathy or JVD. Cardiac exam shows regular rate and rhythm. Lung exam shows scattered crackles, but otherwise lungs are clear. Abdomen is soft and nontender. Extremities: Right BKA is noted. There is a 2-3 cm wound with eschar within the wound, noted on the left lower leg. There is faint surrounding erythema, which apparently is improved from before, and is receding from the inked margins. Neurologic exam: Is grossly nonfocal - Narrative A/P Narrative: #1. Diabetic wound with cellulitis, failed outpatient treatment. The patient is clinically much improved after 2 days of IV antibiotics and aggressive local wound care. Dr. Sam recommends that we now discharge her on oral Bactrim plus doxycycline, for a wound growing MSSA. She will follow-up in the wound care clinic. #2. DM-the patient has an insulin pump, and she manages her diabetes well. #3. CAD/CHF-continue aspirin, Lipitor, Plavix, lisinopril, metoprolol. #4. PVD-continue cardiac meds. #5. HTN/ HLD -continue usual meds. #6. DM neuropathy-managed with Lyrica and sertraline. 7. DVT prophylaxis: Hep sq Cardiac, diabetic diet #8. Full code. 9. Renal. Her initial creatinine had bumped up to 1.5, from her baseline of 1.0. This is down to 1.4 today. This should be followed up with her primary care physician. Approximately 35 minutes was spent today, reviewing patient's chart and test results, interviewing and examining her, and then reviewing the case with Dr. Sam , and writing orders. Discharge diagnosis: Nonhealing, infected, left leg diabetic ulcer. Mild renal insufficiency. D - Time Spent with Patient Total time spent providing and/or coordinating discharge services: Greater than 30 minutes Medical - DS: Exam - Constitutional Vitals: Vital Signs Temp Pulse Resp BP BP Pulse Ox 08/12/17 11:18 98.2 F 16 104/62 95 08/12/17 08:00 92 08/12/17 07:25 98.6 F 16 99/59 92 08/12/17 04:33 97.5 F 69 16 112/65 93 08/11/17 23:46 98.8 F 63 16 115/68 94 08/11/17 20:00 98.3 F 64 16 112/57 93 08/11/17 16:00 97.9 F 18 124/65 93 Intake and Output 08/11/17 08/12/17 08/12/17 21:59 05:59 13:59 Intake Total 880 / 880 350 / 350 300 / 300 Output Total 300 / 300 775 / 775 Balance 580 / 580 -425 / -425 300 / 300 Intake: IV 100 / 100 Zosyn 3.375 gm In Dextrose 5% 100 / 100 in Water 50 ml @ 100 mls/hr IV Q8H MARY Rx#:[id number] Oral 780 / 780 350 / 350 300 / 300 Output: Void Amount 300 / 300 775 / 775 Other: Meal Dinner Applesauce, carolin crackers Breakfast Percent of Meal Consumed 100% 100% 100% Feeding Ability Independent Independent Independent # Voids 1 1 Weight 219 lb 8 oz Medical - DS: Data Labs on day of discharge: Labs from last 24 hours 08/12/17 08/12/17 08/12/17 08:00 06:00 06:00 WBC 10.1 RBC 4.35 Hgb 12.9 Hct 38.2 MCV 87.7 MCH 29.5 MCHC 33.7 RDW 14.4 Plt Count 327 MPV 9.8 Gran % 59.3 Lymph % (Auto) 25.9 [place] % (Auto) 9.2 Eos % (Auto) 4.7 Baso % (Auto) 0.9 Gran # 6.0 Lymph # (Auto) 2.6 [place] # (Auto) 0.9 Eos # (Auto) 0.5 Baso # (Auto) 0.1 Sodium 141 Potassium 4.7 Chloride 105 Carbon Dioxide 22 Anion Gap 14.0 BUN 36 H Creatinine 1.4 H GFR Calculation 42 Glucose 152 H Uric Acid 6.9 Calcium 8.8 Phosphorus 3.9 Magnesium 2.5 Total Bilirubin 0.2 Direct Bilirubin < 0.2 GGT 24 AST 15 ALT 15 Alkaline Phosphatase 113 Lactate Dehydrogenase 206 C-React Prot High Sens 34.1 H Total Protein 7.0 Albumin 3.8 Globulin 3.2 Albumin/Globulin Ratio 1.2 Triglycerides 184 H Urine Color Urine Appearance Urine pH Ur Specific [place] Urine Protein Urine Glucose (UA) Urine Ketones Urine Occult Blood Urine Nitrate Urine Bilirubin Urine Urobilinogen Ur Leukocyte Esterase Urine RBC Urine WBC Ur Squamous Epith Cells Urine Bacteria Hyaline Casts Ur Culture Indicated? Ur Random Creatinine U Random Total Protein U [place] Prot/Creat Ratio Vancomycin Trough 18.0 H 08/11/17 08/11/17 15:55 15:55 WBC RBC Hgb Hct MCV MCH MCHC RDW Plt Count MPV Gran % Lymph % (Auto) [place] % (Auto) Eos % (Auto) Baso % (Auto) Gran # Lymph # (Auto) [place] # (Auto) Eos # (Auto) Baso # (Auto) Sodium Potassium Chloride Carbon Dioxide Anion Gap BUN Creatinine GFR Calculation Glucose Uric Acid Calcium Phosphorus Magnesium Total Bilirubin Direct Bilirubin GGT AST ALT Alkaline Phosphatase Lactate Dehydrogenase C-React Prot High Sens Total Protein Albumin Globulin Albumin/Globulin Ratio Triglycerides Urine Color Yellow Urine Appearance Clear Urine pH 5.0 Ur Specific [place] 1.015 Urine Protein Neg Urine Glucose (UA) Negative Urine Ketones Neg Urine Occult Blood Neg Urine Nitrate Neg Urine Bilirubin Neg Urine Urobilinogen Neg Ur Leukocyte Esterase Neg Urine RBC 0 Urine WBC 2 Ur Squamous Epith Cells 3 Urine Bacteria 0 Hyaline Casts 1 Ur Culture Indicated? No Ur Random Creatinine 97.9 U Random Total Protein 6 U [place] Prot/Creat Ratio 0.06 Vancomycin Trough August 12: X-ray of the lower leg shows open wound with surrounding soft tissue swelling in the anterolateral mid calf. No evidence of osteomyelitis. I do not see wound cultures in the chart. Medical - DS: A/P - Patient/Caregiver Discharge Instructions Activity: increase activity as tolerated Diet: Renal/Consistent Carbs Additional Instructions: Resume home renal/consistent carbohydrate diet Increase activity as tolerated. Follow up with Dr. Virgen on 08/17 at 10:30 am. Follow up with Dr. Liang. Contact the office on Tuesday 08/14 to schedule. Return to [facility] lab for blood draw the week of 08/14. Take the attached slip with you. 1. Left lower leg cellulitis, with open wound. Bactrim DS 1 p.o. twice daily for the next 10 days, and then clarify with Dr. Sam whether to continue. Take doxycycline 100 mg p.o. twice daily, then follow-up with Dr. Sam. Cleanse wound twice daily, as directed, and then apply mupirocin ointment and gauze. Follow-up with Dr. Sam Monday or Monday for a wound check 2. Renal. Your creatinine level was a bit elevated during his stay here. Please have this rechecked early next week. Return to ER for chills, fever, nausea and/or vomiting, shortness of breath, unable to go to the bathroom, uncontrolled pain, signs of infection, chest pain Prescriptions: Doxycycline Monohydrate [Mondoxyne Nl] 100 mg PO BID #20 cap Mupirocin Oint 2% [Bactroban Oint 2%] 1 dose TOPICAL BID #45 tube Sulfamethoxazole/Trimethoprim [Bactrim Ds Tablet] 1 each PO BID #20 tab Other Amb Orders: Comprehensive Metabolic Panel Location: Determined By Patient - Follow up Plan Follow up with: Traci Virgen MD [Primary Care Provider] - 08/17/17 10:30 am Bart Knutson MD [Physician] - Disposition: Home, Self-Care Prognosis: Good Rehab Potential: Good I certify that the patient requires SNF services: No Overall status at discharge: patient is progressing back to baseline Medical - DS: Qual - VTE Deep Vein Thrombosis/Pulmonary Embolism Present on Admission: No
[2017-08-12] MEDS ORDERED: SULFAMETHOXAZOLE/TRIMETHOPRIM 1 TABLET PO SCH (21:00)
[2017-08-12] MEDS ORDERED: DOXYCYCLINE HYCLATE 100 MG TABLET.ORL PO SCH (21:00)
== END 2017-08-12 15:10 | disposition home or self-care (01) | DRG 872 ==
LOC: ED 09:07 → MEDSUR 13:22 → SUATTDRO 13:22 → MEDSUR 13:26
PROVIDERS: ADMIT Internal Medicine; ATTEND Internal Medicine

== ENCOUNTER 2017-09-09 12:38 | Inpatient (IN) ==
[2017-09-09] MEDS ORDERED: ONDANSETRON 4 MG/2 ML VIAL IV ONE (13:14)
[2017-09-09] MEDS ORDERED: 0.9 % SODIUM CHLORIDE 500 ML IV ONE (13:14)
[2017-09-09] MEDS ORDERED: fentaNYL 100 MCG/2 ML VIAL IV ONE (13:41)
--- NOTE | 2017-09-09 13:46 | Emergency Department Note ---
Female Urogenital HPI - General Chief complaint: Flank Pain Stated complaint: Bilateral flank pain, hematuria Time Seen by Provider: 09/09/17 12:42 Source: patient Mode of arrival: wheelchair Limitations: no limitations - History of Present Illness HPI Narrative: 56-year-old female presents with bilateral flank pain worse on the right since . She also states today she started having hematuria and is passing clots. She denies history of kidney stones, kidney infections or hematuria. She states she has been also vomiting this morning. She states she is also nauseated now. She denies fever but she had a low-grade fever of 99.2. She says she is chilling at this time. She has type I diabetic and has congestive heart failure as well. She has had a CABG 2 years ago she is a former smoker of 40 years. She denies abdominal pain but has some pressure in her bladder when after she urinates. She denies worsening shortness of breath or chest pain. Her blood sugars have been running in the 100s and she tried to eat today but vomited it up. She is on an insulin pump and has a glucose monitor. She is on Plavix - Related Data Home Medications Medication Instructions Recorded Confirmed Insulin Lispro [Humalog] 0.7 units SQ Q1 08/20/15 09/09/17 Clopidogrel [Plavix] 75 mg PO DAILY 10/16/15 09/09/17 Aspirin [Adult Low Dose Aspirin EC] 81 mg PO DAILY 04/18/16 09/09/17 Eszopiclone [Lunesta] 3 mg PO HS 04/18/16 09/09/17 Ferrous Gluconate [Fergon] 324 mg PO BID 04/18/16 09/09/17 Furosemide [Lasix] 40 mg PO DAILY 04/18/16 09/09/17 HYDROcodone/APAP 5/325MG [[place] 1 - 2 tab PO Q4HP PRN 04/18/16 09/09/17 5/325Mg] Metoprolol Tartrate [Lopressor] 25 mg PO BID 04/18/16 09/09/17 Pregabalin [Lyrica] 225 mg PO BID 04/18/16 09/09/17 Sertraline [Zoloft] 100 mg PO DAILY 04/18/16 09/09/17 Atorvastatin [Lipitor] 20 mg PO HS 06/22/16 09/09/17 Lisinopril [Zestril] 5 mg PO Q48 06/22/16 09/09/17 Ascorbic Acid [Vitamin C] 1 tab PO DAILY 08/10/17 09/09/17 Furosemide [Lasix] 20 mg PO HS 08/10/17 09/09/17 Insulin Pump Cartridge [Cartridge 0.75 units SQ Q1 08/10/17 09/09/17 Stamped] Multivitamin [One Daily] 1 tab PO DAILY 08/10/17 09/09/17 Vitamin D3 1 tab PO DAILY 08/10/17 09/09/17 Previous Rx's Medication Instructions Recorded Accu-Chek 1 each FS ACHS strip 08/12/17 Acetaminophen [Tylenol] 650 mg PO Q6HP PRN tablet 08/12/17 Mupirocin Oint 2% [Bactroban Oint 1 dose TOPICAL BID #45 tube 08/12/17 2%] Allergies Allergy/AdvReac Type Severity Reaction Status Date / Time Hydromorphone AdvReac Intermediate Hallucinati Verified 08/10/17 09:10 ng Zolpidem [From Ambien] AdvReac Mild Other Verified 08/10/17 09:10 Review of Systems All systems ED: reviewed and negative except as stated. Past Medical History - Past Medical History Medical history: Reports: CHF, COPD, coronary artery disease, diabetes (Type 1 ID, HgbA1c in July greater then . ), other (Neuropathy of bilateral lower extremities. Chronic non-healing wounds of lower extremities. Bilateral tinea pedis. 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 Absent: conjunctival injection Neck: Present: normal inspection, full ROM Chest: Present: normal inspection, symmetric chest wall rise Respiratory: Present: other (decreased lung sounds in all chou. No crackles) Cardiovascular: Present: regular rate, normal heart sounds Abdominal: Present: soft, tenderness, normal bowel sounds Abdominal tenderness: Present: suprapubic, mild Extremities: Present: other (right lower extremity amputation). Absent: pedal edema Back: Present: CVA tenderness (R), CVA tenderness (L) (mild) Neurological: Present: alert, oriented X3 Psychiatric: Present: normal affect, normal mood Skin: Present: warm, dry, intact Course Course Narrative: She will be admitted by the hospitalist Vital Signs Temperature 99.2 F H 09/09/17 12:40 Pulse Rate 69 09/09/17 12:40 Respiratory Rate 18 09/09/17 12:40 Blood Pressure 110/65 09/09/17 12:40 Pulse Oximetry (%) 94 09/09/17 12:40 Temperature 99.1 F H 09/09/17 15:51 Pulse Rate 84 09/09/17 15:51 Respiratory Rate 18 09/09/17 15:51 Blood Pressure 133/69 09/09/17 15:51 Pulse Oximetry (%) 98 09/09/17 15:51 Urogenital-Female - MDM Narrative Medical decision making narrative: White blood cell count significantly elevated at 17.4. Urine is very positive for urinary tract infection. Lactic acid normal at 1.4. Vitals have been stable and pain was controlled with 50 mcg of fentanyl and Zofran. Recheck of blood sugar was 154 - Lab Data Lab results reviewed: Yes I reviewed the patient's lab results. Result diagrams: 09/09/17 13:41 09/09/17 13:41 Lab Results 09/09/17 09/09/17 09/09/17 Range/Units 13:41 13:41 13:41 WBC 17.4 H (4.5-11.0) K/mcL RBC 4.45 (4.00-5.20) M/mcL Hgb 13.1 (12.0-15.0) g/dL Hct 38.9 (36.0-48.0) % MCV 87.4 (80.0-100.0) fL MCH 29.5 (26.0-34.0) pg MCHC 33.7 (31.0-36.0) g/dL RDW 14.7 H (11.5-14.5) % Plt Count 311 (140-440) K/mcL MPV 9.9 (7.4-10.4) fL Total Counted 100 Seg Neutrophils % 82 H (38-78) % Band Neutrophils % Not Reportable Lymphocytes % 13 L (15-49) % Monocytes % (Manual) 5 (1-12) % Platelet Estimate Normal (NORMAL) RBC Morphology Abnorm A (NORMAL) Anisocytosis Few A (NONE SEEN) PT (11.9-14.5) sec INR (0.9-1.1) VBG Lactic Acid 1.4 (0.5-2.2) mmol/L Sodium 141 (133-145) mmol/L Potassium 4.4 (3.3-5.1) mmol/L Chloride 104 (96-108) mmol/L Carbon Dioxide 21 L (22-30) mmol/L Anion Gap 16.0 (8-16) BUN 37 H (6-20) mg/dl Creatinine 1.4 H (0.6-1.1) mg/dl GFR Calculation 42 Glucose 178 H (70-105) mg/dL Calcium 9.0 (8.6-10.4) mg/dl Total Bilirubin 0.4 (0.0-1.0) mg/dL AST 12 (0-37) U/l ALT 10 (0-40) U/l Alkaline Phosphatase 116 (39-117) U/L Total Protein 7.8 (5.9-8.4) gm/dL Albumin 3.8 (3.2-5.2) gm/dL Globulin 4.0 H (2.2-3.7) gm/dL Albumin/Globulin Ratio 1.0 (1.0-2.3) Beta-Hydroxybutyrate (< 0.27) mmol/L Urine Color Urine Appearance Urine pH (5.0-9.0) Ur Specific [place] (1.000-1.035) Urine Protein (NEG) mg/dL Urine Glucose (UA) (NEG) mg/dL Urine Ketones (NEG) mg/dL Urine Occult Blood (<0.03) mg/dL Urine Nitrate (NEG) Urine Bilirubin (NEG) mg/dL Urine Urobilinogen (NEG) mg/dL Ur Leukocyte Esterase (NEG) /uL Urine RBC (0-1) /hpf Urine WBC (0-4) /hpf Ur Squamous Epith Cells (0-4) /hpf Urine Bacteria (0) /hpf Urine Mucus (0) /hpf Ur Culture Indicated? 11/04/17 11/04/17 11/04/17 Range/Units 13:41 13:41 13:47 WBC (4.5-11.0) K/mcL RBC (4.00-5.20) M/mcL Hgb (12.0-15.0) g/dL Hct (36.0-48.0) % MCV (80.0-100.0) fL MCH (26.0-34.0) pg MCHC (31.0-36.0) g/dL RDW (11.5-14.5) % Plt Count (140-440) K/mcL MPV (7.4-10.4) fL Total Counted Seg Neutrophils % (38-78) % Band Neutrophils % Lymphocytes % (15-49) % Monocytes % (Manual) (1-12) % Platelet Estimate (NORMAL) RBC Morphology (NORMAL) Anisocytosis (NONE SEEN) PT 13.8 (11.9-14.5) sec INR 1.0 (0.9-1.1) VBG Lactic Acid (0.5-2.2) mmol/L Sodium (133-145) mmol/L Potassium (3.3-5.1) mmol/L Chloride (96-108) mmol/L Carbon Dioxide (22-30) mmol/L Anion Gap (8-16) BUN (6-20) mg/dl Creatinine (0.6-1.1) mg/dl GFR Calculation Glucose (70-105) mg/dL Calcium (8.6-10.4) mg/dl Total Bilirubin (0.0-1.0) mg/dL AST (0-37) U/l ALT (0-40) U/l Alkaline Phosphatase (39-117) U/L Total Protein (5.9-8.4) gm/dL Albumin (3.2-5.2) gm/dL Globulin (2.2-3.7) gm/dL Albumin/Globulin Ratio (1.0-2.3) Beta-Hydroxybutyrate 0.36 H (< 0.27) mmol/L Urine Color Red Urine Appearance Turbid Urine pH 6.0 (5.0-9.0) Ur Specific [place] 1.014 (1.000-1.035) Urine Protein 100 A (NEG) mg/dL Urine Glucose (UA) Negative (NEG) mg/dL Urine Ketones Neg (NEG) mg/dL Urine Occult Blood >=1.0 A (<0.03) mg/dL Urine Nitrate Pos A (NEG) Urine Bilirubin Neg (NEG) mg/dL Urine Urobilinogen Neg (NEG) mg/dL Ur Leukocyte Esterase 500 A (NEG) /uL Urine RBC 87 H (0-1) /hpf Urine WBC > 182 H (0-4) /hpf Ur Squamous Epith Cells 6 H (0-4) /hpf Urine Bacteria Mod A (0) /hpf Urine Mucus Few (0) /hpf Ur Culture Indicated? 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
[2017-09-09 14:17] LABS: Mean Cell Volume 87.4 fL (80.0-100.0); Mean Corpuscular HGB Conc 33.7 g/dL (31.0-36.0); Mean Corpuscular Hemoglobin 29.5 pg (26.0-34.0); Platelet Count 311 K/mcL (140-440); RBC 4.45 M/mcL (4.00-5.20); Red Cell Distribution Width 14.7 % (11.5-14.5)
[2017-09-09 14:30] LABS: Appearance,Urine TURBID; Bacteria,Urine MOD /hpf (0); Bilirubin,Urine NEG (NEG); Color,Urine RED; Glucose,Urine (UA) NEGATIVE (NEG); Leukocyte Esterase,Urine 500 /uL (NEG); Mucus,Urine FEW /hpf (0); Nitrate,Urine POS (NEG); Protein,Urine 100 mg/dL (NEG); Specific Gravity,Urine 1.014 (1.000-1.035); Urine Blood >=1.0 mg/dL (<0.03); Urine RBC 87 /hpf (0-1); Urine Squamous Epithelial Cell 6 /hpf (0-4); Urine WBC > 182 /hpf (0-4); Urobilinogen,Urine NEG (NEG)
[2017-09-09 14:37] LABS: ALT/SGPT 10 U/l (0-40); Albumin 3.8 gm/dL (3.2-5.2); Alkaline Phosphatase 116 U/L (39-117); Blood Urea Nitrogen 37 mg/dl (6-20)
[2017-09-09] MEDS ORDERED: cefTRIAXone 1 GM VIAL IV ONE (14:47)
[2017-09-09 15:02] LABS: Anisocytosis FEW (NONE SEEN); Lymphocytes % 13 % (15-49); Monocytes % (Manual) 5 % (1-12); Platelet Estimate NORMAL (NORMAL); RBC Morphology ABNORM (NORMAL); Segmented Neutrophils % 82 % (38-78)
[2017-09-09] MEDS ORDERED: ACETAMINOPHEN 325 MG TABLET PO ONE (15:17)
--- NOTE | 2017-09-09 16:53 | Internal Med History&Physical ---
Medical - H&P: HPI Patient information: Note initiated : 09/09/17 at 4:44 pm Service Date, if different from initiated Date: [] Patient: Mai Colon 56 y/o F admitted on for Bilateral flank pain, hematuria. Chief Complaint: [] History of present illness: Ms. Colon is a 56 year old female with long-standing diabetes and diabetic complications. She was just discharged from here August 12. She had been treated with IV antibiotics for her leg infection, and then took 2 more weeks of oral antibiotics. She reports that 2 days ago she began to note pain across her low back. Yesterday she had a little bit of nausea, and then this morning she had persistent nausea and vomiting. She has not had an appetite for a couple of days. She did not notice fever or chills, but was febrile in the ER. She does report that she has had fairly loose stool for the last 2 days, which she describes as loose and somewhat black and tarry, although she notes she also takes an iron supplement. ER evaluation suggest UTI with probable pyelonephritis, significant leukocytosis , mild dehydration. Otherwise, she denies recent fever chills, headaches or dizziness, new eye or ear symptoms, sore throat or cough, chest pain or palpitations. She does have chronic dyspnea on exertion, ever since her bypass surgery 2 years ago. She does note slight suprapubic tenderness with urination, but no painful urination. Her pain is more across her low back that actually in the flank areas. Medical History Diabetes type 1 Congestive heart failure (Acute) Dilated cardiomyopathy (Acute), coronary artery disease, CHF, nonischemic dilated cardiomyopathy, previous ejection fraction 20% Edema, leg (Acute) Peripheral vascular disease Hypertension Diabetic peripheral neuropathy Insomnia Diabetic retinopathy next line depression Hyperlipidemia Wound dehiscence (Acute) Alyssa infection of genital region (Acute) Delayed surgical wound healing (Acute) Cellulitis and abscess of leg (Acute) Right BKA infection (Acute) Amputation stump infection (Acute) Anemia (Acute) Epigastric abdominal pain (Acute) Dyspepsia (Acute) Surgical history: angioplasty right femoropopliteal 2015 2 CABG September 2015 Right below the knee amputation. Allergies: Hydromorphone, zolpidem Family history: Family history of sudden in maternal grandmother. Mother has valvular heart disease. Mother has diabetes. Father at age 68 with possible PE. 3 brothers have hypertriglyceridemia. Social history: She smoked about a third of a pack of cigarettes per day for 40 years, quit August 2015. Denies alcohol or drug use. Lives with her and 26-year- old son. Has 2 other grown children. Medical - H&P: Meds Home Medications Medication Instructions Recorded Confirmed Type Clopidogrel [Plavix] 75 mg PO DAILY 10/16/15 09/09/17 History Aspirin [Adult Low Dose Aspirin EC] 81 mg PO DAILY 04/18/16 09/09/17 History Eszopiclone [Lunesta] 3 mg PO HS 04/18/16 09/09/17 History Ferrous Gluconate [Fergon] 324 mg PO BID 04/18/16 09/09/17 History Furosemide [Lasix] 40 mg PO DAILY 04/18/16 09/09/17 History Metoprolol Tartrate [Lopressor] 25 mg PO BID 04/18/16 09/09/17 History Pregabalin [Lyrica] 225 mg PO BID 04/18/16 09/09/17 History Sertraline [Zoloft] 100 mg PO DAILY 04/18/16 09/09/17 History Atorvastatin [Lipitor] 20 mg PO HS 06/22/16 09/09/17 History Lisinopril [Zestril] 5 mg PO Q48 06/22/16 09/09/17 History Ascorbic Acid [Vitamin C] 1 tab PO DAILY 08/10/17 09/09/17 History Furosemide [Lasix] 20 mg PO HS 08/10/17 09/09/17 History Insulin Pump Cartridge [Cartridge 0.75 units SQ Q1 08/10/17 09/09/17 History Stamped] Multivitamin [One Daily] 1 tab PO DAILY 08/10/17 09/09/17 History Vitamin D3 1 tab PO DAILY 08/10/17 09/09/17 History Accu-Chek 1 each FS ACHS strip 08/12/17 09/09/17 Rx Allergies Allergy/AdvReac Type Severity Reaction Status Date / Time Hydromorphone AdvReac Intermediate Hallucinati Verified 08/10/17 09:10 ng Zolpidem [From Ambien] AdvReac Mild Other Verified 08/10/17 09:10 Medical - H&P: Exam - Constitutional Vitals: Temp Pulse Resp BP Pulse Ox 99.1 F H 84 18 133/69 98 09/09/17 15:51 09/09/17 15:51 09/09/17 15:51 09/09/17 15:51 09/09/17 15:51 On exam, she is a well-developed overweight white female in no acute distress. Head: Normocephalic, atraumatic. Ears: TMs and canals are clear. Eyes: Pupils are equal and round, but sluggishly reactive. EOMI, anicteric. Pharynx: Posterior pharynx is quite crowded. She is edentulous, and has an upper plate in place. Cardiac exam: Shows regular rate and rhythm with normal S1 and S2. No murmurs, rubs, gallops are noted. Lungs: He does have crackles at both bases, left greater than right. Otherwise no wheezes or rhonchi are noted. Abdomen: Is soft. There is no guarding or rebound. She does have some mild suprapubic tenderness. I do not detect any significant CVA tenderness. Sounds are active. Extremities: Show no cyanosis, clubbing, edema. She has a right BKA, which is well-healed. She has a left zarco wound, which is currently covered. Nursing took pictures of this, and it is clean and dry. She is followed weekly at the wound clinic. Neurologic exam: Patient is alert and oriented, calm and cooperative. Motor exam is grossly nonfocal. Medical - H&P: Reslt - Labs CBC & Chem 7: 09/09/17 13:41 09/09/17 13:41 Labs: Short CBC 09/09/17 Range/Units 13:41 WBC 17.4 H (4.5-11.0) K/mcL Hgb 13.1 (12.0-15.0) g/dL Hct 38.9 (36.0-48.0) % Plt Count 311 (140-440) K/mcL BMP 09/09/17 13:41 Sodium 141 Potassium 4.4 Chloride 104 Carbon Dioxide 21 L BUN 37 H Creatinine 1.4 H Glucose 178 H Calcium 9.0 Liver Function 09/09/17 Range/Units 13:41 Total Bilirubin 0.4 (0.0-1.0) mg/dL AST 12 (0-37) U/l ALT 10 (0-40) U/l Alkaline Phosphatase 116 (39-117) U/L Albumin 3.8 (3.2-5.2) gm/dL Urine 09/09/17 Range/Units 13:47 Urine Color Red Urine Appearance Turbid Urine pH 6.0 (5.0-9.0) Ur Specific [place] 1.014 (1.000-1.035) Urine Protein 100 A (NEG) mg/dL Urine Glucose (UA) Negative (NEG) mg/dL Pro time is 13, INR 1.0 next Lactic acid is normal at 1.4 Beta hydroxybutyrate level is elevated at 0.36 Urinalysis: Shows 100 mg of protein, positive nitrates, 500 leukocyte esterase, 87 red blood cells, greater than 182 white blood cells, moderate bacteria Medical - H&P: A/P (1) Pyelonephritis Current visit: Yes Status: Acute (2) SIRS (systemic inflammatory response syndrome) Current visit: Yes Status: Acute (3) Type 1 diabetes Current visit: Yes Status: Acute - Narrative A/P Narrative: #1. Infectious disease. Patient presents with systemic inflammatory response syndrome, evidence of pyelonephritis, and is acutely ill. She also reports loose stools for 2 days, and has been on antibiotics recently, so is also at risk for C. difficile colitis. -Admit to telemetry for close monitoring. -IV fluids, IV antibiotics-cover with Zosyn pending cultures.. -Blood and urine cultures are pending. -Send stool for C. difficile, also guaiac stools. #2. DM-the patient has an insulin pump,. Continue Accu-Cheks before meals and at bedtime, managed with insulin pump per patient's preference. #3. CAD/CHF-continue aspirin, Lipitor, Plavix, lisinopril, metoprolol. #4. PVD-continue cardiac meds. #5. HTN/ HLD -continue usual meds. #6. DM neuropathy-managed with Lyrica and sertraline. 7. DVT prophylaxis: Continue Plavix and aspirin. Encourage ambulation. #8. CODE STATUS: Patient did sign paperwork for DNR, but now says she would like to be a full code. Her is in agreement. 9. Renal. Probable mild chronic kidney disease. Her creatinine appears near baseline at 1.4. Continue to monitor. This visit took approximately 55 minutes, to review her old records, review her case with the ER MD, interview and examine her, review plan of care with the patient and her , and write orders.
[2017-09-09] MEDS ORDERED: INSULIN LISPRO 1 UNIT/0.01 ML UNIT SQ SCH (17:03)
[2017-09-09] MEDS ORDERED: ACETAMINOPHEN 325 MG TABLET PO PRN (17:03)
[2017-09-09] MEDS ORDERED: DEXTROSE 31 GM ORAL.SUSP PO PRN (17:03)
[2017-09-09] MEDS ORDERED: ALBUTEROL SULFATE 2.5 MG/3 ML NEBULIZER NEB PRN (17:03)
[2017-09-09] MEDS ORDERED: HYDROcodone/APAP 5/325MG TABLET PO PRN (17:03)
[2017-09-09] MEDS ORDERED: MAGNESIUM HYDROXIDE 30 ML ORAL.SUSP PO PRN (17:03)
[2017-09-09] MEDS ORDERED: NALOXONE HCL 0.4 MG/ML VIAL IV PRN (17:03)
[2017-09-09] MEDS ORDERED: ONDANSETRON 4 MG/2 ML VIAL IV PRN (17:03)
[2017-09-09] MEDS ORDERED: DEXTROSE 50% 50 ML VIAL IV PRN (17:03)
[2017-09-09] MEDS ORDERED: DOCUSATE SODIUM 100 MG CAPSULE PO PRN (17:03)
[2017-09-09] MEDS: 0.9 % SODIUM CHLORIDE 1,000 ML IV SCH (17:54)
[2017-09-09] MEDS: INSULIN LISPRO 1 UNIT/0.01 ML UNIT SQ SCH ×2 (17:59→22:29)
[2017-09-09] MEDS: PIPERACILLIN SODIUM/TAZOBACTAM 3.375 GM in DEXTROSE 5% IN WATER 50 ML IV SCH (19:25)
[2017-09-09 20:19] LABS: Hemoglobin A1C 7.1 % HGB (4.0-6.0)
[2017-09-09] MEDS ORDERED: ATORVASTATIN 20 MG TABLET PO SCH (21:00)
[2017-09-09] MEDS ORDERED: Eszopiclone [Lunesta] 3 MG PO SCH (21:00)
[2017-09-09] MEDS: METOPROLOL TARTRATE 25 MG TABLET PO SCH (22:30)
[2017-09-09] MEDS: FERROUS GLUCONATE 324 MG TABLET PO SCH (22:30)
[2017-09-09] MEDS: PREGABALIN 75 MG CAPSULE PO SCH (22:30)
[2017-09-10] MEDS: PIPERACILLIN SODIUM/TAZOBACTAM 3.375 GM in DEXTROSE 5% IN WATER 50 ML IV SCH ×5 (00:18→23:21)
[2017-09-10] MEDS: [UNRECOGNIZED DRUG - OTHER] SQ SCH (02:41)
[2017-09-10] MEDS: 0.9 % SODIUM CHLORIDE 1,000 ML IV SCH ×4 (04:30→16:20)
[2017-09-10 06:36] LABS: Basophils # (Auto) 0.1 K/mcL (0.0-0.3); Basophils % (Auto) 0.3 % (0.0-2.0); Eosinophils # (Auto) 0 K/mcL (0.0-0.7); Eosinophils % (Auto) 0.2 % (0.0-7.0); Granulocytes % (Auto) 78.9 % (38.0-78.0); Lymphocytes # (Auto) 2.2 K/mcL (1.5-4.8); Lymphocytes % (Auto) 11.5 % (15.5-49.0); Mean Corpuscular HGB Conc 33.6 g/dL (31.0-36.0); Mean Corpuscular Hemoglobin 29.5 pg (26.0-34.0); Monocytes # (Auto) 1.7 K/mcL (0.1-0.9); Monocytes % (Auto) 9.1 % (1.0-12.0); Platelet Count 237 K/mcL (140-440); RBC 3.74 M/mcL (4.00-5.20); Red Cell Distribution Width 14.7 % (11.5-14.5)
[2017-09-10 06:54] LABS: ALT/SGPT 8 U/l (0-40); Albumin 3.1 gm/dL (3.2-5.2); Albumin/Globulin Ratio 0.9 (1.0-2.3); Alkaline Phosphatase 87 U/L (39-117); Bilirubin,Direct < 0.2 mg/dL (0.0-0.3); Blood Urea Nitrogen 34 mg/dl (6-20); Gamma Glutamyl Transpeptidase 22 U/L (5-36); Magnesium 2.1 mg/dL (1.6-2.5)
[2017-09-10] MEDS ORDERED: ASCORBIC ACID 500 MG TABLET PO SCH (09:00)
[2017-09-10] MEDS ORDERED: CLOPIDOGREL 75 MG TABLET PO SCH (09:00)
[2017-09-10] MEDS ORDERED: VITAMIN D3 1,000 UNIT TABLET PO SCH (09:00)
[2017-09-10] MEDS ORDERED: ASPIRIN 81 MG TAB.CHEW PO SCH (09:00)
[2017-09-10] MEDS ORDERED: SERTRALINE 100 MG TABLET PO SCH (09:00)
[2017-09-10] MEDS ORDERED: MULTIVIT,THER IRON,CA,FA & MIN 1 TABLET PO SCH (09:00)
[2017-09-10] MEDS ORDERED: FUROSEMIDE 20 MG TABLET PO SCH (09:00)
--- NOTE | 2017-09-10 10:14 | Internal Med Progress Note ---
Medical - PN: Subj Patient information: Note initiated : 09/10/17 at 10:14 am Service Date, if different from initiated Date: [] Patient: Mai Colon 56 y/o F admitted on 09/09/17 for Bilateral flank pain, hematuria. Chief Complaint: [] Interval history: September 09, 2017: History of present illness: Ms. Colon is a 56 year old female with long-standing diabetes and diabetic complications. She was just discharged from here August 12. She had been treated with IV antibiotics for her leg infection, and then took 2 more weeks of oral antibiotics. She reports that 2 days ago she began to note pain across her low back. Yesterday she had a little bit of nausea, and then this morning she had persistent nausea and vomiting. She has not had an appetite for a couple of days. She did not notice fever or chills, but was febrile in the ER. She does report that she has had fairly loose stool for the last 2 days, which she describes as loose and somewhat black and tarry, although she notes she also takes an iron supplement. ER evaluation suggest UTI with probable pyelonephritis, significant leukocytosis , mild dehydration. Otherwise, she denies recent fever chills, headaches or dizziness, new eye or ear symptoms, sore throat or cough, chest pain or palpitations. She does have chronic dyspnea on exertion, ever since her bypass surgery 2 years ago. She does note slight suprapubic tenderness with urination, but no painful urination. Her pain is more across her low back that actually in the flank areas. September 10: Today, the patient says she is feeling definitely better. She is having less low back pain. She is also having left suprapubic pain. Her white blood cell count is actually a bit higher today, for uncertain reasons. She still has occasional fevers, with T-max of 101.7. She did have an episode of chills this morning. Otherwise she denies chest pain or palpitations, nausea or vomiting, diarrhea or constipation, dysuria. Medical History Diabetes type 1 Congestive heart failure (Acute) Dilated cardiomyopathy (Acute), coronary artery disease, CHF, nonischemic dilated cardiomyopathy, previous ejection fraction 20% Edema, leg (Acute) Peripheral vascular disease Hypertension Diabetic peripheral neuropathy Insomnia Diabetic retinopathy next line depression Hyperlipidemia Wound dehiscence (Acute) Alyssa infection of genital region (Acute) Delayed surgical wound healing (Acute) Cellulitis and abscess of leg (Acute) Right BKA infection (Acute) Amputation stump infection (Acute) Anemia (Acute) Epigastric abdominal pain (Acute) Dyspepsia (Acute) - Constitutional Vitals: Vital Signs Temp Pulse Resp BP Pulse Ox 99.8 F H 65 18 101/67 97 09/10/17 08:00 09/10/17 08:04 09/10/17 08:00 09/10/17 08:04 09/10/17 08:04 Period Temp Pulse Resp BP Sys/[place] Pulse Ox Last 24 Hr 98.8 F-101.7 F 59-106 16-20 97-137/45-71 88-99 Intake and Output 09/09/17 09/10/17 09/10/17 22:59 05:59 13:59 Intake Total Output Total Balance Weight Intake & Output: Intake & Output 09/09/17 09/10/17 09/10/17 22:59 05:59 13:59 Intake Total Output Total Balance Weight Intake: IV Sodium Chloride 0.9% 1,000 ml @ 100 mls/hr IV .Q10H MARY Rx#: [id number] Zosyn 3.375 gm In Dextrose 5% in Water 50 ml @ 100 mls/hr IV Q6H MARY Rx#:[id number] Oral Output: Void Amount On exam, she is awake and alert, and smiling. She was reading the newspaper when I entered the room. Neck is supple without obvious lymphadenopathy or JVD. Cardiac exam shows regular rate and rhythm. Lungs continue to have a few crackles at the bases, but are otherwise clear. Abdomen: Is soft. She has much less tenderness in the suprapubic area today. Bowel sounds are normoactive. Extremities: Right BKA stump looks fine. Left lower extremity leg wound is clean and dry. Neurologic exam: Is grossly nonfocal Medical - PN: Obj Da - Labs CBC & Chem 7: 09/10/17 03:40 09/10/17 03:40 Labs: Abnormal Lab Results 09/10/17 09/10/17 09/09/17 03:40 03:40 13:47 WBC 19.1 H RBC 3.74 L Hgb 11.0 L Hct 32.9 L RDW 14.7 H MPV 10.6 H Gran % 78.9 H Lymph % (Auto) 11.5 L Gran # 15.1 H [place] # (Auto) 1.7 H Seg Neutrophils % Lymphocytes % RBC Morphology Anisocytosis Carbon Dioxide 20 L BUN 34 H Creatinine 1.7 H Glucose 115 H Hemoglobin A1c Calcium 8.0 L Albumin 3.1 L Globulin Albumin/Globulin Ratio 0.9 L Beta-Hydroxybutyrate Urine Protein 100 A Urine Occult Blood >=1.0 A Urine Nitrate Pos A Ur Leukocyte Esterase 500 A Urine RBC 87 H Urine WBC > 182 H Ur Squamous Epith Cells 6 H Urine Bacteria Mod A 09/09/17 09/09/17 09/09/17 13:41 13:41 13:41 WBC 17.4 H RBC Hgb Hct RDW 14.7 H MPV Gran % Lymph % (Auto) Gran # [place] # (Auto) Seg Neutrophils % 82 H Lymphocytes % 13 L RBC Morphology Abnorm A Anisocytosis Few A Carbon Dioxide 21 L BUN 37 H Creatinine 1.4 H Glucose 178 H Hemoglobin A1c Calcium Albumin Globulin 4.0 H Albumin/Globulin Ratio Beta-Hydroxybutyrate 0.36 H Urine Protein Urine Occult Blood Urine Nitrate Ur Leukocyte Esterase Urine RBC Urine WBC Ur Squamous Epith Cells Urine Bacteria 09/09/17 13:18 WBC RBC Hgb Hct RDW MPV Gran % Lymph % (Auto) Gran # [place] # (Auto) Seg Neutrophils % Lymphocytes % RBC Morphology Anisocytosis Carbon Dioxide BUN Creatinine Glucose Hemoglobin A1c 7.1 H Calcium Albumin Globulin Albumin/Globulin Ratio Beta-Hydroxybutyrate Urine Protein Urine Occult Blood Urine Nitrate Ur Leukocyte Esterase Urine RBC Urine WBC Ur Squamous Epith Cells Urine Bacteria September 09: Urine culture is growing greater than 100,000 gram-negative bacilli. ID to follow. CBC shows white blood cell count of 17,400, 82% neutrophils Chemistry panel: Shows BUN of 37, creatinine 1.4, CO2 of 21, glucose 178 Hemoglobin A1c is 7.1% Pro time is 13, INR 1.0 next Lactic acid is normal at 1.4 Beta hydroxybutyrate level is elevated at 0.36 Urinalysis: Shows 100 mg of protein, positive nitrates, 500 leukocyte esterase, 87 red blood cells, greater than 182 white blood cells, moderate bacteria Meds: Medications Acetaminophen (Tylenol) 650 mg PO Q6HP PRN PRN Reason: PAIN/FEVER > 101 Last Admin: 09/10/17 00:06 Dose: 650 mg Hydrocodone Bitart/Acetaminophen (Onward 5/325mg) 2 tab PO Q4HP PRN PRN Reason: Pain Albuterol Sulfate (Ventolin) 2.5 mg NEB Q4HRT PRN PRN Reason: Shortness Of Breath Or Wheezing Ascorbic Acid (Vitamin C) 1,000 mg PO DAILY [facility] Aspirin (Aspirin) 81 mg PO DAILY [facility] Atorvastatin Calcium (Lipitor) 20 mg PO HS [facility] [place] Last Admin: 09/09/17 22:30 Dose: 20 mg Clopidogrel Bisulfate (Plavix) 75 mg PO DAILY [facility] [place] Dextrose (Dextrose 50%) 0 ml IV UD PRN PRN Reason: Hypoglycemia Diagnostic Test (Pha) (Accu-Chek) 1 each FS ACHS [facility] [place] Last Admin: 09/09/17 22:29 Dose: 1 each Docusate Sodium (Colace) 100 mg PO BID PRN PRN Reason: Constipation Ferrous Gluconate (Fergon) 324 mg PO BID [facility] [place] Last Admin: 09/09/17 22:30 Dose: 324 mg Furosemide (Lasix) 40 mg PO DAILY [facility] [place] Glucose (Insta-Glucose) 15 gm PO PRN PRN PRN Reason: Hypoglycemia Sodium Chloride (Sodium Chloride 0.9%) 1,000 mls @ 100 mls/hr IV .Q10H [facility] [place] Last Admin: 09/10/17 04:30 Dose: 100 mls/hr Piperacillin Sod/Tazobactam (Sod 3.375 gm/ Dextrose) 50 mls @ 100 mls/hr IV Q6H [facility] [place] Last Infusion: 09/10/17 05:35 Dose: Infused Iron Carb/Multivit/Septic Tank Setter/Folic Acid (Multivitamin W/Minerals) 1 tab PO DAILY [facility] [place] Lisinopril (Zestril) 5 mg PO Q48 [facility] [place] Magnesium Hydroxide (Milk Of Magnesia) 30 ml PO DAILYP PRN PRN Reason: Constipation Metoprolol Tartrate (Lopressor) 25 mg PO BID [facility] [place] Last Admin: 09/09/17 22:30 Dose: 25 mg Morphine Sulfate (Morphine) 2 mg IV Q30M PRN PRN Reason: Pain Last Admin: 09/09/17 19:25 Dose: 2 mg Naloxone HCl (Narcan) 0.1 mg IV Q2MIN PRN PRN Reason: Opiate Reversal Ondansetron HCl (Zofran) 4 mg IV Q4HP PRN PRN Reason: Nausea And Vomiting Eszopiclone [Lunesta (] 3 Mg) 1 dose PO HS [facility] [place] Last Admin: 09/09/17 22:30 Dose: 1 dose Pregabalin (Lyrica) 225 mg PO BID [facility] [place] Last Admin: 09/09/17 22:30 Dose: 225 mg Sertraline HCl (Zoloft) 100 mg PO DAILY [facility] [place] Vitamin D (Vitamin D3) 1,000 unit PO DAILY [facility] [place] Medical - PN: A/P - Time Spent With Patient Total time spent is greater than 50% in coordination of care (as documented) at patient's floor/unit and/or counseling patient: 25 - 35 minutes (1) Pyelonephritis Status: Acute Current Visit: Yes (2) SIRS (systemic inflammatory response syndrome) Status: Acute Current Visit: Yes (3) Type 1 diabetes Status: Acute Current Visit: Yes - Narrative A/P Narrative: #1. Infectious disease. Patient presents with systemic inflammatory response syndrome, evidence of pyelonephritis, and is acutely ill. She also reports loose stools for 2 days, and has been on antibiotics recently, so is also at risk for C. difficile colitis. -Admit to telemetry for close monitoring. -IV fluids, IV antibiotics-cover with Zosyn pending cultures.. -Blood cultures are pending. Urine culture is growing gram-negative rods. Continue IV Zosyn, pending culture results. -check renal sonogram -Send stool for C. difficile, also guaiac stools. ( no diarrhea today) #2. DM-the patient has an insulin pump,. Continue Accu-Cheks before meals and at bedtime, managed with insulin pump per patient's preference. #3. CAD/CHF-continue aspirin, Lipitor, Plavix, lisinopril, metoprolol. #4. PVD-continue cardiac meds. #5. HTN/ HLD -continue usual meds. #6. DM neuropathy-managed with Lyrica and sertraline. 7. DVT prophylaxis: Continue Plavix and aspirin. Encourage ambulation. #8. CODE STATUS: Patient did sign paperwork for DNR, but now says she would like to be a full code. Her is in agreement. 9. Renal. Probable mild chronic kidney disease. Her creatinine appears near baseline at 1.4. Continue to monitor. Vision is improved enough today, that I think she can be transferred to [facility]. Medical - PN: Qual - Stroke Symptom Onset Unknown: No - VTE Deep Vein Thrombosis/Pulmonary Embolism Present on Admission: No
[2017-09-10] MEDS: METOPROLOL TARTRATE 25 MG TABLET PO SCH ×2 (10:40→21:34)
[2017-09-10] MEDS: FERROUS GLUCONATE 324 MG TABLET PO SCH ×2 (10:40→21:34)
[2017-09-10] MEDS: PREGABALIN 75 MG CAPSULE PO SCH ×2 (10:40→21:34)
[2017-09-10] MEDS ORDERED: ALBUTEROL SULFATE 2.5 MG/3 ML NEBULIZER NEB PRN (13:40)
[2017-09-10] MEDS ORDERED: ONDANSETRON 4 MG/2 ML VIAL IV PRN (13:40)
[2017-09-10] MEDS ORDERED: HYDROcodone/APAP 5/325MG TABLET PO PRN (13:40)
[2017-09-10] MEDS ORDERED: DEXTROSE 50% 50 ML VIAL IV PRN (13:40)
[2017-09-10] MEDS ORDERED: MAGNESIUM HYDROXIDE 30 ML ORAL.SUSP PO PRN (13:40)
[2017-09-10] MEDS ORDERED: DEXTROSE 31 GM ORAL.SUSP PO PRN (13:40)
[2017-09-10] MEDS ORDERED: ACETAMINOPHEN 325 MG TABLET PO PRN (13:40)
[2017-09-10] MEDS ORDERED: NALOXONE HCL 0.4 MG/ML VIAL IV PRN (13:40)
[2017-09-10] MEDS ORDERED: DOCUSATE SODIUM 100 MG CAPSULE PO PRN (13:40)
--- NOTE | 2017-09-10 18:17 | XRay Report ---
CLINICAL INFORMATION: Shortness of breath COMPARISON: 08/19/2016 FINDINGS: The heart is mildly enlarged. Sternotomy/CABG changes noted. Pulmonary vessels are mildly distended and there is minimal interstitial edema. Minor bibasilar airspace disease noted - either developing atelectasis or infiltrate. IMPRESSION: 1. Mild CHF or volume overload 2. Bibasilar airspace disease either atelectasis or developing infiltrate Interpreted and Authenticated by: Christian Williamson 09/10/17
--- NOTE | 2017-09-10 18:25 | Ultrasound Report ---
CLINICAL INFORMATION: Flank pain. Evaluate for pyelonephritis stage III kidney disease COMPARISON: 12/09/2016. FINDINGS: Both kidneys are normal and symmetric in size, position, configuration and echotexture: The right is 12 x 5.2 cm and the left is 13 x 5 cm. There is no evidence of stone or hydronephrosis. No evidence of cyst, solid lesion or abscess. Renal arterial blood flow is grossly normal to both kidneys on color and spectral Doppler Urinary bladder volume is 81 cc and the patient emptied her bladder completely. No focal bladder lesions IMPRESSION: Normal bilateral kidneys and urinary bladder Interpreted and Authenticated by: Christian Williamson 09/10/17
[2017-09-10] MEDS: HEPARIN 5,000 UNIT/ML VIAL SQ SCH (21:33)
[2017-09-10] MEDS: ATORVASTATIN 20 MG TABLET PO SCH (21:34)
[2017-09-10] MEDS: [UNRECOGNIZED DRUG - OTHER] PO SCH (21:35)
[2017-09-11] MEDS: PIPERACILLIN SODIUM/TAZOBACTAM 3.375 GM in DEXTROSE 5% IN WATER 50 ML IV SCH (05:22)
[2017-09-11 05:59] LABS: Basophils # (Auto) 0.1 K/mcL (0.0-0.3); Basophils % (Auto) 0.5 % (0.0-2.0); Eosinophils # (Auto) 0.4 K/mcL (0.0-0.7); Granulocytes % (Auto) 73.9 % (38.0-78.0); Lymphocytes # (Auto) 1.9 K/mcL (1.5-4.8); Lymphocytes % (Auto) 12.8 % (15.5-49.0); Mean Cell Volume 87.8 fL (80.0-100.0); Mean Corpuscular HGB Conc 33.2 g/dL (31.0-36.0); Mean Corpuscular Hemoglobin 29.2 pg (26.0-34.0); Monocytes # (Auto) 1.4 K/mcL (0.1-0.9); Monocytes % (Auto) 9.8 % (1.0-12.0); Platelet Count 253 K/mcL (140-440); RBC 3.94 M/mcL (4.00-5.20); Red Cell Distribution Width 14.9 % (11.5-14.5)
[2017-09-11 06:10] LABS: ALT/SGPT 30 U/l (0-40); Albumin 3.3 gm/dL (3.2-5.2); Albumin/Globulin Ratio 0.9 (1.0-2.3); Alkaline Phosphatase 118 U/L (39-117); Bilirubin,Direct < 0.2 mg/dL (0.0-0.3); Blood Urea Nitrogen 44 mg/dl (6-20); Gamma Glutamyl Transpeptidase 62 U/L (5-36); Magnesium 2.1 mg/dL (1.6-2.5); Uric Acid 7.5 mg/dL (2.5-8.0)
[2017-09-11] MEDS ORDERED: FUROSEMIDE 20 MG TABLET PO SCH (09:00)
[2017-09-11] MEDS ORDERED: LISINOPRIL 5 MG TABLET PO SCH ×2 (09:00)
[2017-09-11] MEDS: METOPROLOL TARTRATE 25 MG TABLET PO SCH ×2 (09:57→20:50)
[2017-09-11] MEDS: ASPIRIN 81 MG TAB.CHEW PO SCH (09:57)
[2017-09-11] MEDS: PREGABALIN 75 MG CAPSULE PO SCH ×2 (09:57→20:50)
[2017-09-11] MEDS: ASCORBIC ACID 500 MG TABLET PO SCH (09:57)
[2017-09-11] MEDS: MULTIVIT,THER IRON,CA,FA & MIN 1 TABLET PO SCH (09:57)
[2017-09-11] MEDS: FUROSEMIDE 40 MG/4 ML VIAL IV SCH (09:58)
[2017-09-11] MEDS: FERROUS GLUCONATE 324 MG TABLET PO SCH ×2 (09:58→20:50)
[2017-09-11] MEDS: VITAMIN D3 1,000 UNIT TABLET PO SCH (09:58)
[2017-09-11] MEDS: CLOPIDOGREL 75 MG TABLET PO SCH (09:58)
[2017-09-11] MEDS: HEPARIN 5,000 UNIT/ML VIAL SQ SCH ×2 (09:58→20:50)
[2017-09-11] MEDS: SERTRALINE 100 MG TABLET PO SCH (09:58)
[2017-09-11 11:22] LABS: Appearance,Urine CLEAR; Bacteria,Urine 0 /hpf (0); Bilirubin,Urine NEG (NEG); Color,Urine YELLOW; Glucose,Urine (UA) NEGATIVE (NEG); Leukocyte Esterase,Urine 75 /uL (NEG); Mucus,Urine FEW /hpf (0); Nitrate,Urine NEG (NEG); Protein,Urine NEG (NEG); Specific Gravity,Urine 1.014 (1.000-1.035); Urine Blood 0.2 mg/dL (<0.03); Urine RBC 3 /hpf (0-1); Urine Squamous Epithelial Cell 1 /hpf (0-4); Urine WBC 26 /hpf (0-4); Urobilinogen,Urine NEG (NEG)
[2017-09-11] MEDS: cefTRIAXone 2 GM VIAL IV SCH (11:38)
--- NOTE | 2017-09-11 14:37 | Internal Med Progress Note ---
Medical - PN: Subj Patient information: Note initiated : 09/11/17 at 2:32 pm Service Date, if different from initiated Date: [] Patient: Mai Colon 56 y/o F admitted on 09/09/17 for Bilateral Flank Pain, Hematuria/Pyelonephritis. Chief Complaint: [] Interval history: September 09, 2017: History of present illness: Ms. Colon is a 56 year old female with long-standing diabetes and diabetic complications. She was just discharged from here August 12. She had been treated with IV antibiotics for her leg infection, and then took 2 more weeks of oral antibiotics. She reports that 2 days ago she began to note pain across her low back. Yesterday she had a little bit of nausea, and then this morning she had persistent nausea and vomiting. She has not had an appetite for a couple of days. She did not notice fever or chills, but was febrile in the ER. She does report that she has had fairly loose stool for the last 2 days, which she describes as loose and somewhat black and tarry, although she notes she also takes an iron supplement. ER evaluation suggest UTI with probable pyelonephritis, significant leukocytosis , mild dehydration. Otherwise, she denies recent fever chills, headaches or dizziness, new eye or ear symptoms, sore throat or cough, chest pain or palpitations. She does have chronic dyspnea on exertion, ever since her bypass surgery 2 years ago. She does note slight suprapubic tenderness with urination, but no painful urination. Her pain is more across her low back that actually in the flank areas. September 10: Today, the patient says she is feeling definitely better. She is having less low back pain. She is also having left suprapubic pain. Her white blood cell count is actually a bit higher today, for uncertain reasons. She still has occasional fevers, with T-max of 101.7. She did have an episode of chills this morning. Otherwise she denies chest pain or palpitations, nausea or vomiting, diarrhea or constipation, dysuria. September 11 Patient seen examined, no acute overnight issues, the patient had some fever yesterday, but doing well this AM, she complained of shortness of breath, X ray showed mild chf, IVF stopped The patient is passing urine well, IV lasix given her creat is worsening and is up to 2.1, her urine cx is ecoli meza sensitive. CXR shows possible infiltrate, not sure if can distinguish between infiltrate and edema at thsi time, patient already on abx. her flank pain is resolved. renal usg is negative. Medical History Diabetes type 1 Congestive heart failure (Acute) Dilated cardiomyopathy (Acute), coronary artery disease, CHF, nonischemic dilated cardiomyopathy, previous ejection fraction 20% Edema, leg (Acute) Peripheral vascular disease Hypertension Diabetic peripheral neuropathy Insomnia Diabetic retinopathy next line depression Hyperlipidemia Wound dehiscence (Acute) Alyssa infection of genital region (Acute) Delayed surgical wound healing (Acute) Cellulitis and abscess of leg (Acute) Right BKA infection (Acute) Amputation stump infection (Acute) Anemia (Acute) Epigastric abdominal pain (Acute) Dyspepsia (Acute) Pertinent ROS: Denies headache, dizziness Denies chest pain, palpitations Denies cough or shortness of breath Denies abdominal pain, nausea or vomiting. - Constitutional Vitals: Vital Signs Temp Pulse Resp BP Pulse Ox 98.8 F 71 18 110/56 92 09/11/17 11:32 09/11/17 03:46 09/11/17 11:32 09/11/17 11:32 09/11/17 11:32 Period Temp Pulse Resp BP Sys/[place]ora Pulse Ox Last 24 Hr 98.6 F-101.3 F 65-71 16-22 103-122/54-67 90-93 Intake and Output 09/11/17 09/11/17 09/11/17 05:59 13:59 21:59 Intake Total 900 / 900 480 / 480 Output Total 250 / 250 350 / 350 600 / 600 Balance 650 / 650 130 / 130 -600 / -600 Weight 217 lb Patient Weight 09/12/17 05:59 Weight 217 lb Intake & Output: Intake & Output 09/11/17 09/11/17 09/11/17 05:59 13:59 21:59 Intake Total 900 / 900 480 / 480 Output Total 250 / 250 350 / 350 600 / 600 Balance 650 / 650 130 / 130 -600 / -600 Weight 217 lb Intake: IV 50 / 50 Zosyn 3.375 gm In Dextrose 5% 50 / 50 in Water 50 ml @ 100 mls/hr IV Q6H [facility] Rx#:[id number] Oral 850 / 850 480 / 480 Output: Void Amount 250 / 250 350 / 350 600 / 600 Other: Meal Chicken salad & crackers Breakfast Lunch Percent of Meal Consumed 75% 100% 100% Feeding Ability Independent # Voids 1 # Bowel Movements 1 1 Exam: Constitutional; Afebrile, cooperative, alert, not in distress. Eyes- No icterus, , No periorbital swelling Ears- Ext ear normal, hearing normal to conversation. Neck- Midline trachea, supple Respiratory system: Air Entry equal on both sides, No crackles or wheezing, no rhonchi. CVS- Rate rhythm regular, S1,S2 heard, no gallop, no rub. Abdomen- Soft nontender abdomen, no organomegaly, no tenderness, no guarding or rigidity, FILTER OPERATOR- AOOx3, moving all extremities, no gross focal deficit noted. Medical - PN: Obj Da - Labs CBC & Chem 7: 09/11/17 04:30 09/11/17 04:30 Labs: Abnormal Lab Results 09/11/17 09/11/17 09/11/17 09:31 04:30 04:30 WBC 14.5 H RBC 3.94 L Hgb 11.5 L Hct 34.5 L RDW 14.9 H MPV Gran % Lymph % (Auto) 12.8 L Gran # 10.7 H [place] # (Auto) 1.4 H Seg Neutrophils % Lymphocytes % RBC Morphology Anisocytosis Carbon Dioxide 20 L BUN 44 H Creatinine 2.1 H Glucose 135 H Hemoglobin A1c Calcium 8.5 L GGT 62 H Alkaline Phosphatase 118 H Albumin Globulin Albumin/Globulin Ratio 0.9 L Beta-Hydroxybutyrate Urine Protein Urine Occult Blood 0.2 A Urine Nitrate Ur Leukocyte Esterase 75 A Urine RBC 3 H Urine WBC 26 H Ur Squamous Epith Cells Urine Bacteria 09/10/17 09/10/17 09/09/17 03:40 03:40 13:47 WBC 19.1 H RBC 3.74 L Hgb 11.0 L Hct 32.9 L RDW 14.7 H MPV 10.6 H Gran % 78.9 H Lymph % (Auto) 11.5 L Gran # 15.1 H [place] # (Auto) 1.7 H Seg Neutrophils % Lymphocytes % RBC Morphology Anisocytosis Carbon Dioxide 20 L BUN 34 H Creatinine 1.7 H Glucose 115 H Hemoglobin A1c Calcium 8.0 L GGT Alkaline Phosphatase Albumin 3.1 L Globulin Albumin/Globulin Ratio 0.9 L Beta-Hydroxybutyrate Urine Protein 100 A Urine Occult Blood >=1.0 A Urine Nitrate Pos A Ur Leukocyte Esterase 500 A Urine RBC 87 H Urine WBC > 182 H Ur Squamous Epith Cells 6 H Urine Bacteria Mod A 09/09/17 09/09/17 09/09/17 13:41 13:41 13:41 WBC 17.4 H RBC Hgb Hct RDW 14.7 H MPV Gran % Lymph % (Auto) Gran # [place] # (Auto) Seg Neutrophils % 82 H Lymphocytes % 13 L RBC Morphology Abnorm A Anisocytosis Few A Carbon Dioxide 21 L BUN 37 H Creatinine 1.4 H Glucose 178 H Hemoglobin A1c Calcium GGT Alkaline Phosphatase Albumin Globulin 4.0 H Albumin/Globulin Ratio Beta-Hydroxybutyrate 0.36 H Urine Protein Urine Occult Blood Urine Nitrate Ur Leukocyte Esterase Urine RBC Urine WBC Ur Squamous Epith Cells Urine Bacteria 09/09/17 13:18 WBC RBC Hgb Hct RDW MPV Gran % Lymph % (Auto) Gran # [place] # (Auto) Seg Neutrophils % Lymphocytes % RBC Morphology Anisocytosis Carbon Dioxide BUN Creatinine Glucose Hemoglobin A1c 7.1 H Calcium GGT Alkaline Phosphatase Albumin Globulin Albumin/Globulin Ratio Beta-Hydroxybutyrate Urine Protein Urine Occult Blood Urine Nitrate Ur Leukocyte Esterase Urine RBC Urine WBC Ur Squamous Epith Cells Urine Bacteria Meds: Medications Acetaminophen (Tylenol) 650 mg PO Q6HP PRN PRN Reason: PAIN/FEVER > 101 Last Admin: 09/10/17 17:53 Dose: 650 mg Hydrocodone Bitart/Acetaminophen ([place] 5/325mg) 2 tab PO Q4HP PRN PRN Reason: Pain Albuterol Sulfate (Ventolin) 2.5 mg NEB Q4HRT PRN PRN Reason: Shortness Of Breath Or Wheezing Ascorbic Acid (Vitamin C) 1,000 mg PO DAILY [facility] Last Admin: 09/11/17 09:57 Dose: 1,000 mg Aspirin (Aspirin) 81 mg PO DAILY [facility] Last Admin: 09/11/17 09:57 Dose: 81 mg Atorvastatin Calcium (Lipitor) 20 mg PO HS [facility] Last Admin: 09/10/17 21:34 Dose: 20 mg Ceftriaxone Sodium (Rocephin) 2 gm IV DAILY [facility] Last Admin: 09/11/17 11:38 Dose: 2 gm Clopidogrel Bisulfate (Plavix) 75 mg PO DAILY [facility] Last Admin: 09/11/17 09:58 Dose: 75 mg Dextrose (Dextrose 50%) 0 ml IV UD PRN PRN Reason: Hypoglycemia Diagnostic Test (Pha) (Accu-Chek) 1 each FS ACHS [facility] Last Admin: 09/11/17 12:01 Dose: 1 each Docusate Sodium (Colace) 100 mg PO BID PRN PRN Reason: Constipation Ferrous Gluconate (Fergon) 324 mg PO BID [facility] Last Admin: 09/11/17 09:58 Dose: 324 mg Furosemide (Lasix) 40 mg IV DAILY [facility] Last Admin: 09/11/17 09:58 Dose: 40 mg Glucose (Insta-Glucose) 15 gm PO PRN PRN PRN Reason: Hypoglycemia Heparin Sodium (Porcine) (Heparin) 5,000 unit SQ Q12 [facility] Last Admin: 09/11/17 09:58 Dose: 5,000 unit Iron Carb/Multivit/[employer] Hand/Folic Acid (Multivitamin W/Minerals) 1 tab PO DAILY [facility] Last Admin: 09/11/17 09:57 Dose: 1 tab Magnesium Hydroxide (Milk Of Magnesia) 30 ml PO DAILYP PRN PRN Reason: Constipation Metoprolol Tartrate (Lopressor) 25 mg PO BID [facility] Last Admin: 09/11/17 09:57 Dose: 25 mg Morphine Sulfate (Morphine) 2 mg IV Q30M PRN PRN Reason: Pain Naloxone HCl (Narcan) 0.1 mg IV Q2MIN PRN PRN Reason: Opiate Reversal Ondansetron HCl (Zofran) 4 mg IV Q4HP PRN PRN Reason: Nausea And Vomiting Last Admin: 09/11/17 14:03 Dose: 4 mg Eszoplicone (Lunesta () 3 Mg Tablet) 1 dose PO HS [facility] Last Admin: 09/10/17 21:35 Dose: 1 dose Pregabalin (Lyrica) 225 mg PO BID [facility] Last Admin: 09/11/17 09:57 Dose: 225 mg Sertraline HCl (Zoloft) 100 mg PO DAILY [facility] Last Admin: 09/11/17 09:58 Dose: 100 mg Vitamin D (Vitamin D3) 1,000 unit PO DAILY [facility] Last Admin: 09/11/17 09:58 Dose: 1,000 unit Medical - PN: A/P - Time Spent With Patient Total time spent is greater than 50% in coordination of care (as documented) at patient's floor/unit and/or counseling patient: - Narrative A/P Narrative: A/P severe sepsis UTI Ecoli Bactermia DM Diarrhea cdiff negative. CAD/ Congestive Heart failure PVD/ HTN/ HLD Acute Kidney INjury Plan Hold IV fluids in light of c hf, one dose of IV lasix given monitor urine ouput D/c zosyn and start on rocephin patient renal failiure could is non oliguric, likely ATN due to sepsis/ low bp recently, monitor for now consider nephrology evaluation if continues to worsen patient using her insulin pump for Glucose monitoring and glucose levels is well controlled continue home meds for HTN, HLD, PVD, hold DARIUS inhibitors in light of renal failure. DVT hep sq Medical - PN: Qual - Stroke Symptom Onset Unknown: No - VTE Deep Vein Thrombosis/Pulmonary Embolism Present on Admission: No
[2017-09-11] MEDS: [UNRECOGNIZED DRUG - OTHER] PO SCH (20:50)
[2017-09-11] MEDS: ATORVASTATIN 20 MG TABLET PO SCH (20:50)
[2017-09-12 06:38] LABS: Basophils # (Auto) 0.1 K/mcL (0.0-0.3); Basophils % (Auto) 0.6 % (0.0-2.0); Eosinophils # (Auto) 0.4 K/mcL (0.0-0.7); Eosinophils % (Auto) 3.7 % (0.0-7.0); Granulocytes % (Auto) 70.9 % (38.0-78.0); Lymphocytes # (Auto) 1.7 K/mcL (1.5-4.8); Mean Cell Volume 87.5 fL (80.0-100.0); Mean Corpuscular HGB Conc 33.6 g/dL (31.0-36.0); Mean Corpuscular Hemoglobin 29.4 pg (26.0-34.0); Monocytes # (Auto) 1.1 K/mcL (0.1-0.9); Monocytes % (Auto) 9.8 % (1.0-12.0); Platelet Count 265 K/mcL (140-440); RBC 3.71 M/mcL (4.00-5.20); Red Cell Distribution Width 14.3 % (11.5-14.5)
[2017-09-12 07:16] LABS: ALT/SGPT 23 U/l (0-40); Albumin 3.1 gm/dL (3.2-5.2); Albumin/Globulin Ratio 0.9 (1.0-2.3); Alkaline Phosphatase 111 U/L (39-117); Bilirubin,Direct < 0.2 mg/dL (0.0-0.3); Blood Urea Nitrogen 44 mg/dl (6-20); Gamma Glutamyl Transpeptidase 61 U/L (5-36); Magnesium 2.1 mg/dL (1.6-2.5); Uric Acid 8.3 mg/dL (2.5-8.0)
[2017-09-12] MEDS ORDERED: FUROSEMIDE 40 MG TABLET PO SCH (09:00)
[2017-09-12] MEDS: SERTRALINE 100 MG TABLET PO SCH (09:12)
[2017-09-12] MEDS: VITAMIN D3 1,000 UNIT TABLET PO SCH (09:12)
[2017-09-12] MEDS: METOPROLOL TARTRATE 25 MG TABLET PO SCH (09:12)
[2017-09-12] MEDS: ASCORBIC ACID 500 MG TABLET PO SCH (09:12)
[2017-09-12] MEDS: MULTIVIT,THER IRON,CA,FA & MIN 1 TABLET PO SCH (09:12)
[2017-09-12] MEDS: CLOPIDOGREL 75 MG TABLET PO SCH (09:12)
[2017-09-12] MEDS: FERROUS GLUCONATE 324 MG TABLET PO SCH (09:13)
[2017-09-12] MEDS: HEPARIN 5,000 UNIT/ML VIAL SQ SCH (09:13)
[2017-09-12] MEDS: ASPIRIN 81 MG TAB.CHEW PO SCH (09:13)
[2017-09-12] MEDS: cefTRIAXone 2 GM VIAL IV SCH (10:37)
[2017-09-12] MEDS: PREGABALIN 75 MG CAPSULE PO SCH (10:37)
--- NOTE | 2017-09-12 10:43 | Discharge Summary ---
Medical - DS: Prov Patient information: Note initiated : 09/12/17 at 10:38 am Service Date, if different from initiated Date: [] Patient: Mai Colon 56 y/o F admitted on 09/09/17 for Bilateral Flank Pain, Hematuria/Pyelonephritis. Chief Complaint: [] Date of admission: 09/09/17 17:00 Discharge date: 09/12/17 Primary care physician: Traci Virgen Admitting clinician: Yvonne Bill Discharging clinician: Chuyita Gonzalez Medical - DS: Meds - Discharge Medications Prescriptions: Cephalexin [Keflex] 500 mg PO QID 14 Days #56 cap Active and Home Medications: Home Medications RX: Clopidogrel [Plavix] 75 mg PO DAILY 10/16/15 [History Confirmed 09/09/17 Last Taken 09/08/17 21:00] RX: Aspirin [Adult Low Dose Aspirin EC] 81 mg PO DAILY 04/18/16 [History Confirmed 09/09/17 Last Taken 09/08/17 08:00] RX: Eszopiclone [Lunesta] 3 mg PO HS 04/18/16 [History Confirmed 09/09/17 Last Taken 09/08/17 21:00] RX: Ferrous Gluconate [Fergon] 324 mg PO BID 04/18/16 [History Confirmed Last Taken 09/08/17 21:00] RX: Furosemide [Lasix] 40 mg PO DAILY 04/18/16 [History Confirmed 09/09/17 Last Taken 09/08/17 08:00] RX: Metoprolol Tartrate [Lopressor] 25 mg PO BID 04/18/16 [History Confirmed 02/20 Last Taken 09/08/17 21:00] RX: Pregabalin [Lyrica] 225 mg PO BID 04/18/16 [History Confirmed 09/09/17 Last Taken 09/08/17 21:00] RX: Sertraline [Zoloft] 100 mg PO DAILY 04/18/16 [History Confirmed 09/09/17 Last Taken 09/08/17 21:00] RX: Atorvastatin [Lipitor] 20 mg PO HS 06/22/16 [History Confirmed 09/09/17 Last Taken 09/08/17 21:00] RX: Lisinopril [Zestril] 5 mg PO Q48 06/22/16 [History Confirmed 09/09/17 Last Taken 09/08/17 21:00] RX: Ascorbic Acid [Vitamin C] 1 tab PO DAILY 08/10/17 [History Confirmed Last Taken 09/08/17 08:00] RX: Furosemide [Lasix] 20 mg PO HS 08/10/17 [History Confirmed 09/09/17 Last Taken 09/08/17 21:00] RX: Insulin Pump Cartridge [Cartridge Stamped] 0.75 units SQ Q1 08/10/17 [ History Confirmed 09/09/17 Last Taken 09/09/17 17:00] RX: Multivitamin [One Daily] 1 tab PO DAILY 08/10/17 [History Confirmed Last Taken 09/08/17 08:00] RX: Vitamin D3 1 tab PO DAILY 08/10/17 [History Confirmed 09/09/17 Last Taken 08:00] RX: Accu-Chek 1 each FS ACHS strip 08/12/17 [Rx Confirmed 09/09/17 Last Taken 09/09/17 16:00] Medical - DS: Hosp Hospital course: Ms. Colon is a 56 year old female with long-standing diabetes and diabetic complications. She was just discharged from here August 12 when she was admitted for wound infection. She reports that 2 days before admission days ago she began to note pain across her low back. Yesterday she had a little bit of nausea, and then this morning she had persistent nausea and vomiting. She has not had an appetite for a couple of days. She did not notice fever or chills, but was febrile in the ER. She does report that she has had fairly loose stool for the last 2 days, which she describes as loose and somewhat black and tarry, although she notes she also takes an iron supplement. ER evaluation suggest UTI with probable pyelonephritis, significant leukocytosis , mild dehydration. She was admitted to the hospital with diagnosis of Sepsis, secondary to pyelonephritis, and acute on chr renal failure Pyelnephritis: Treated with IV antibiotics, her urine and blood cultures were positive for meza sensitive E coli. The patient will be switched over to cephalexin. The patient will take 500mg qid x 14 days to complete her course. She has responded very well to above regime. Acute Kidney Injury, patient creat had risen to max of 2.1, trending down today , on the day of discharge is 1.8, her baselien is around 1.4, She has been advised to ensure that she follows up with her PCP and her Chief Lock Operator for continued care, evaluate her renal function at the next visit. She has an appointment with her kidney Dr Chino in October. The rest of the stay in the hospital was unremarkable. No changes in her home medications were done, she will continue to use her meds for htn and insulin pump for DM as before Discharge diagnosis: Sepsis, Pyelonephritis, Renal failure - Time Spent with Patient Total time spent providing and/or coordinating discharge services: Greater than 30 minutes Medical - DS: Exam - Constitutional Vitals: Vital Signs Temp Pulse Resp BP Pulse Ox 09/12/17 07:28 98.3 F 18 108/58 93 09/12/17 04:00 98.0 F 65 18 121/74 93 09/11/17 23:34 98.5 F 91 H 18 106/56 92 09/11/17 20:00 98.8 F 65 20 111/67 92 09/11/17 15:33 98 F 20 113/69 92 09/11/17 11:32 98.8 F 18 110/56 92 Intake and Output 09/11/17 09/12/17 09/12/17 21:59 05:59 13:59 Intake Total 1160 / 1160 0 / 0 Output Total 1100 / 1100 600 / 600 Balance 60 / 60 -600 / -600 Intake: Oral 1160 / 1160 0 / 0 Output: Void Amount 1100 / 1100 600 / 600 Other: Meal Dinner Percent of Meal Consumed 100% # Voids 1 1 # Bowel Movements 1 Weight 215 lb 11.2 oz Additional comments: Constitutional; Afebrile, cooperative, alert, not in distress. Eyes- No icterus, , No periorbital swelling Ears- Ext ear normal, hearing normal to conversation. Neck- Midline trachea, supple Respiratory system: Air Entry equal on both sides, No crackles or wheezing, no rhonchi. CVS- Rate rhythm regular, S1,S2 heard, no gallop, no rub. Abdomen- Soft nontender abdomen, no organomegaly, no tenderness, no guarding or rigidity, LEATHER COLORER- AOOx3, moving all extremities, no gross focal deficit noted. Medical - DS: Data Labs on day of discharge: Labs from last 24 hours 09/12/17 09/12/17 09/11/17 05:03 05:03 09:31 WBC 11.5 H RBC 3.71 L Hgb 10.9 L Hct 32.4 L MCV 87.5 MCH 29.4 MCHC 33.6 RDW 14.3 Plt Count 265 MPV 10.2 Gran % 70.9 Lymph % (Auto) 15.0 L [place] % (Auto) 9.8 Eos % (Auto) 3.7 Baso % (Auto) 0.6 Gran # 8.2 H Lymph # (Auto) 1.7 [place] # (Auto) 1.1 H Eos # (Auto) 0.4 Baso # (Auto) 0.1 Sodium 139 Potassium 4.2 Chloride 103 Carbon Dioxide 20 L Anion Gap 16.0 BUN 44 H Creatinine 1.8 H GFR Calculation 31 Glucose 90 Uric Acid 8.3 H Calcium 8.6 Phosphorus 3.7 Magnesium 2.1 Total Bilirubin 0.2 Direct Bilirubin < 0.2 GGT 61 H AST 17 ALT 23 Alkaline Phosphatase 111 Lactate Dehydrogenase 187 Total Protein 6.6 Albumin 3.1 L Globulin 3.5 Albumin/Globulin Ratio 0.9 L Triglycerides 136 Urine Color Yellow Urine Appearance Clear Urine pH 5.0 Ur Specific [place] 1.014 Urine Protein Neg Urine Glucose (UA) Negative Urine Ketones Neg Urine Occult Blood 0.2 A Urine Nitrate Neg Urine Bilirubin Neg Urine Urobilinogen Neg Ur Leukocyte Esterase 75 A Urine RBC 3 H Urine WBC 26 H Ur Squamous Epith Cells 1 Urine Bacteria 0 Urine Mucus Few Ur Culture Indicated? Yes Urine Eosinophils 09/11/17 09:31 WBC RBC Hgb Hct MCV MCH MCHC RDW Plt Count MPV Gran % Lymph % (Auto) [place] % (Auto) Eos % (Auto) Baso % (Auto) Gran # Lymph # (Auto) [place] # (Auto) Eos # (Auto) Baso # (Auto) Sodium Potassium Chloride Carbon Dioxide Anion Gap BUN Creatinine GFR Calculation Glucose Uric Acid Calcium Phosphorus Magnesium Total Bilirubin Direct Bilirubin GGT AST ALT Alkaline Phosphatase Lactate Dehydrogenase Total Protein Albumin Globulin Albumin/Globulin Ratio Triglycerides Urine Color Urine Appearance Urine pH Ur Specific [place] Urine Protein Urine Glucose (UA) Urine Ketones Urine Occult Blood Urine Nitrate Urine Bilirubin Urine Urobilinogen Ur Leukocyte Esterase Urine RBC Urine WBC Ur Squamous Epith Cells Urine Bacteria Urine Mucus Ur Culture Indicated? Urine Eosinophils 2% Preliminary micro results at discharge 09/11/17 09:31 Urine Culture - Preliminary Urine - Clean Void Mid-[place] 09/09/17 15:02 Blood Culture - Preliminary Blood Escherichia coli 09/09/17 15:08 Blood Culture - Preliminary Blood Medical - DS: A/P - Patient/Caregiver Discharge Instructions Activity: increase activity as tolerated Diet: Cardiac, Consistent Carbohydrate Additional Instructions: Follow up with PCP in 7-14 days Take antibiotics for 2 weeks, Go to ER if any concerns or worsening symptoms. Prescriptions: Cephalexin [Keflex] 500 mg PO QID 14 Days #56 cap - Follow up Plan Follow up with: Traci Virgen MD [Primary Care Provider] - Disposition: Home, Self-Care Prognosis: Fair Rehab Potential: Fair I certify that the patient requires SNF services: No Overall status at discharge: patient is progressing back to baseline Medical - DS: Qual - VTE Deep Vein Thrombosis/Pulmonary Embolism Present on Admission: No
[2017-09-12] MEDS: FUROSEMIDE 40 MG/4 ML VIAL IV SCH (14:37)
== END 2017-09-12 12:30 | disposition home or self-care (01) | DRG 872 ==
LOC: ED 12:38 → ICU 17:00 → MEDSUR 09-10 13:15
PROVIDERS: ADMIT Internal Medicine; ATTEND Internal Medicine

== ENCOUNTER 2018-11-06 09:17 | Inpatient (IN) ==
[2018-11-06] MEDS ORDERED: 0.9 % SODIUM CHLORIDE 1,000 ML IV ONE ×2 (10:16→12:17)
[2018-11-06] MEDS ORDERED: ONDANSETRON 4 MG/2 ML VIAL IV ONE (10:16)
[2018-11-06] MEDS ORDERED: IPRATROPIUM/ALBUTEROL 3 ML AMPUL.NEB NEB ONE (10:18)
[2018-11-06 10:52] LABS: Basophils # (Auto) 0 K/mcL (0.0-0.3); Basophils % (Auto) 0.3 % (0.0-2.0); Eosinophils # (Auto) 0.1 K/mcL (0.0-0.7); Eosinophils % (Auto) 1.2 % (0.0-7.0); Granulocytes % (Auto) 79.8 % (38.0-78.0); Lymphocytes # (Auto) 1.2 K/mcL (1.5-4.8); Lymphocytes % (Auto) 11.2 % (15.5-49.0); Mean Cell Volume 87.3 fL (80.0-100.0); Mean Corpuscular HGB Conc 33.4 g/dL (31.0-36.0); Monocytes # (Auto) 0.8 K/mcL (0.1-0.9); Monocytes % (Auto) 7.5 % (1.0-12.0); Platelet Count 245 K/mcL (140-440); RBC 4.28 M/mcL (4.00-5.20); Red Cell Distribution Width 14.1 % (11.5-14.5)
--- NOTE | 2018-11-06 10:57 | Emergency Department Note ---
SOB HPI - General Chief Complaint: Shortness of Breath/Dyspnea Stated Complaint: nausea/vomiting, cough since Monday, low O2 sats Time Seen by Provider: 11/06/18 09:58 Source: patient Mode of arrival: wheelchair Limitations: no limitations - History of Present Illness 58-year-old female presents to the emergency Department today with complaint of a headache, slightly productive cough of a yellow to white colored product. She reports that she feels short of breath and her symptoms began 4 days ago. She states that today she started to have some vomiting where she threw up twice of clear colored emesis. She does not wear oxygen at home, but was 85% on room air upon arrival to the emergency department. She denies chest pains. She describes the headache as an aching sensation and rates the pain 5 out of 10 on a 0-10 numerical pain scale. Past medical history includes CHF, COPD, coronary artery disease, and type 2 diabetes. - Related Data Home Medications Medication Instructions Recorded Confirmed Clopidogrel [Plavix] 75 mg PO DAILY 10/16/15 09/09/17 Aspirin [Adult Low Dose Aspirin EC] 81 mg PO DAILY 04/18/16 09/09/17 Eszopiclone [Lunesta] 3 mg PO HS 04/18/16 09/09/17 Ferrous Gluconate [Fergon] 324 mg PO BID 04/18/16 09/09/17 Furosemide [Lasix] 40 mg PO DAILY 04/18/16 09/09/17 Metoprolol Tartrate [Lopressor] 25 mg PO BID 04/18/16 09/09/17 Pregabalin [Lyrica] 225 mg PO BID 04/18/16 09/09/17 Sertraline [Zoloft] 100 mg PO DAILY 04/18/16 09/09/17 Atorvastatin [Lipitor] 20 mg PO HS 06/22/16 09/09/17 Lisinopril [Zestril] 5 mg PO Q48 06/22/16 09/09/17 Ascorbic Acid [Vitamin C] 1 tab PO DAILY 08/10/17 09/09/17 Furosemide [Lasix] 20 mg PO HS 08/10/17 09/09/17 Insulin Pump Cartridge [Cartridge 0.75 units SQ Q1 08/10/17 09/09/17 Stamped] Multivitamin [One Daily] 1 tab PO DAILY 08/10/17 09/09/17 Vitamin D3 1 tab PO DAILY 08/10/17 09/09/17 Previous Rx's Medication Instructions Recorded Accu-Chek 1 each FS ACHS strip 08/12/17 Cephalexin [Keflex] 500 mg PO QID 14 Days #56 cap 09/12/17 Allergies Allergy/AdvReac Type Severity Reaction Status Date / Time Hydromorphone AdvReac Intermediate Hallucinati Verified 06/28/18 10:16 ng Zolpidem [From Ambien] AdvReac Mild Other Verified 06/28/18 10:16 Review of Systems All systems ED: reviewed and negative except as stated. 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 Absent: scleral icterus, conjunctival injection ENT: normal oropharynx, mucous membranes moist Neck: Present: trachea midline. Absent: lymphadenopathy, thyromegaly Chest: Present: normal inspection, symmetric chest wall rise. Absent: tenderness Respiratory: Present: other (Lung sounds slightly diminished bases and expiratory wheezes heard throughout all lung chou.). Absent: respiratory distress, accessory muscle use Cardiovascular: Present: regular rate, normal rhythm, +S1, +S2. Absent: systolic murmur, diastolic murmur Abdominal: Present: soft, normal bowel sounds. Absent: distention, tenderness, guarding, rebound, rigidity Extremities: Present: normal capillary refill Neurological: Present: alert, oriented X3 Psychiatric: Present: normal affect, normal mood Skin: Present: warm, dry, intact, normal color Course - Reevaluation(s) Time: 11:01 (DuoNeb was given and the lung sounds have improved with the expiratory wheezing and expiratory wheezes her only heard in the right middle lobe, and left upper lobe. Bases of the lungs are diminished slightly bilaterally.) Vital Signs Temperature 98.4 F 11/06/18 09:18 Pulse Rate 71 11/06/18 09:18 Respiratory Rate 18 11/06/18 09:18 Blood Pressure 124/66 11/06/18 09:18 Pulse Oximetry (%) 85 L 11/06/18 09:18 Temperature 98.4 F 11/06/18 09:18 Pulse Rate 80 11/06/18 11:30 Respiratory Rate 18 11/06/18 09:18 Blood Pressure 135/61 11/06/18 11:30 Pulse Oximetry (%) 95 11/06/18 11:30 Shortness of Breath/Dyspnea - [facility] Narrative Medical decision making narrative: Influenza is negative. Patient was requiring O2 to maintain oxygen saturations greater than 90% here the emergency department. CT scan was ordered to further assess the left lower lobe infiltrate that was seen on the x-ray. ABG results show a restaurant acidosis with hypoxia with PO2 of 48. CT scan results were received from Dr. Chavis who read the CT that shows no pneumonia, no pulmonary embolism, no cardiomegaly, but does show some atelectasis bilateral lower lobes. Dr. Dixon accepted to admit the patient to [facility]. - Lab Data Lab results narrative: ABG shows respiratory acidosis with hypoxia. Result diagrams: 11/06/18 10:00 11/06/18 10:00 Lab Results 11/06/18 11/06/18 Range/Units 10:00 10:00 WBC 10.5 (4.5-11.0) K/mcL RBC 4.28 (4.00-5.20) M/mcL Hgb 12.5 (12.0-15.0) g/dL Hct 37.4 (36.0-48.0) % MCV 87.3 (80.0-100.0) fL MCH 29.1 (26.0-34.0) pg MCHC 33.4 (31.0-36.0) g/dL RDW 14.1 (11.5-14.5) % Plt Count 245 (140-440) K/mcL MPV 10.2 (7.4-10.4) fL Gran % 79.8 H (38.0-78.0) % Lymph % (Auto) 11.2 L (15.5-49.0) % Mckenzie % (Auto) 7.5 (1.0-12.0) % Eos % (Auto) 1.2 (0.0-7.0) % Baso % (Auto) 0.3 (0.0-2.0) % Gran # 8.4 H (1.8-8.0) K/mcL Lymph # (Auto) 1.2 L (1.5-4.8) K/mcL Mckenzie # (Auto) 0.8 (0.1-0.9) K/mcL Eos # (Auto) 0.1 (0.0-0.7) K/mcL Baso # (Auto) 0 (0.0-0.3) K/mcL Sodium 137 (133-145) mmol/L Potassium 4.4 (3.3-5.1) mmol/L Chloride 102 (96-108) mmol/L Carbon Dioxide 25 (22-30) mmol/L Anion Gap 10.0 (8-16) BUN 26 H (6-20) mg/dl Creatinine 1.5 H (0.6-1.1) mg/dl GFR Calculation 38 Glucose 178 H (70-105) mg/dL Calcium 8.9 (8.6-10.4) mg/dl Total Bilirubin 0.3 (0.0-1.0) mg/dL AST 16 (0-37) U/l ALT 17 (0-40) U/l Alkaline Phosphatase 129 H (39-117) U/L Total Protein 7.0 (5.9-8.4) gm/dL Albumin 3.6 (3.2-5.2) gm/dL Globulin 3.4 (2.2-3.7) gm/dL Albumin/Globulin Ratio 1.1 (1.0-2.3) Disposition Pt seen by TECHNICAL 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
[2018-11-06 11:06] LABS: ALT/SGPT 17 U/l (0-40); Albumin 3.6 gm/dL (3.2-5.2); Albumin/Globulin Ratio 1.1 (1.0-2.3); Alkaline Phosphatase 129 U/L (39-117); Blood Urea Nitrogen 26 mg/dl (6-20)
[2018-11-06] MEDS ORDERED: ALBUTEROL SULFATE 2.5 MG/3 ML NEBULIZER NEB ONE (12:56)
--- NOTE | 2018-11-06 12:59 | XRay Report ---
HISTORY: Shortness of breath and cough FINDINGS: Lateral view reveals bands of discoid atelectasis in the left lower lobe and lingula. There is no evidence of pneumonia, congestive heart failure, mass or pleural effusion. The heart size is normal. There has been prior coronary bypass surgery. IMPRESSION: Discoid atelectasis in left lung Interpreted and Authenticated by: Sudeep Chavis 11/06/18
[2018-11-06] MEDS ORDERED: methylPREDNISolone SOD SUCC 125 MG/2 ML VIAL IV ONE (13:14)
--- NOTE | 2018-11-06 13:45 | Internal Med History&Physical ---
Medical - H&P: HPI Patient information: Note initiated : 11/06/18 at 1:39 pm Service Date, if different from initiated Date: [] Patient: Mai Colon a 58 y/o F admitted on for nausea/vomiting, cough since Monday, low O2 sats. Chief Complaint: [] History of present illness: Ms. Colon is a 58 year old F Who presents the ED with severe shortness of breath. Patient was exposed to a sick grandchild recently. The sick grandchild was actually hospitalized at [facility] for night for respiratory issues. The patient first developed rhinorrhea on . Then on Monday she developed a cough productive cough which she was unable to expectorate sputum so is unable to describe the specimen, she also had a headache and she had more sinus congestion. She developed a sore throat as well. The symptoms continue to worsen throughout the weekend and then on Monday afternoon she started developing shortness of breath. This morning she was so short of breath that she felt she needed to come to the ER. She has had some nausea vomits morning she felt fevers chills she had one episode of diarrhea yesterday. She feels wheezy. She does not carry a diagnosis of COPD she is a former smoker quit 6 years ago. She had oxygen saturations as low as 84%. She is on a nonrebreather at first and now is on nasal cannula after 3 breathing treatments. After the second breathing treatment she finally felt improved but still is requiring 5 L of oxygen. Chest x-ray unremarkable CTA was done which showed no pulmonary embolism or pneumonia but showed atelectasis. Her ABG with a CO2 to 48 and oxygen of only 48 and a pH of 7.29. Rapid flu screen in the ER was negative. She does have a history of CHF does not have any increased edema, swelling is been controlled since being on Lasix. Also had a headache earlier. Review of Systems: Pertinent positives as above. Denies /chest or abdominal pain/diarrhea. Remaining 10 point review of systems reviewed and negative Medical - H&P: PMH Medical history: Medical History Congestive heart failure (Acute) systolic Dilated cardiomyopathy (Acute) Edema, leg (Acute)Wound dehiscence (Acute) Cellulitis and abscess of leg (Acute) Right BKA infection (Acute) Amputation stump infection (Acute) Anemia (Acute) CAD Diabetes with neuropathy CKD 3 Hypertension/hyperlipidemia Depression Past surgical history: Right BKA Bilateral tubal ligation CABG x4 6 years ago Family history: Mother had A. fib father was history is unknown social History (Last Updated 12/06/17 @ 10:10 by Amanda Hoffman, RD, LD, CD) Quit smoking 6 years ago ambulate with a cane lives at home with spouse Medical - H&P: Meds Home Medications Medication Instructions Recorded Confirmed Type Clopidogrel [Plavix] 75 mg PO DAILY 10/16/15 09/09/17 History Aspirin [Adult Low Dose Aspirin EC] 81 mg PO DAILY 04/18/16 09/09/17 History Eszopiclone [Lunesta] 3 mg PO HS 04/18/16 09/09/17 History Ferrous Gluconate [Fergon] 324 mg PO BID 04/18/16 09/09/17 History Furosemide [Lasix] 40 mg PO DAILY 04/18/16 09/09/17 History Metoprolol Tartrate [Lopressor] 25 mg PO BID 04/18/16 09/09/17 History Pregabalin [Lyrica] 225 mg PO BID 04/18/16 09/09/17 History Sertraline [Zoloft] 100 mg PO DAILY 04/18/16 09/09/17 History Atorvastatin [Lipitor] 20 mg PO HS 06/22/16 09/09/17 History Lisinopril [Zestril] 5 mg PO Q48 06/22/16 09/09/17 History Ascorbic Acid [Vitamin C] 1 tab PO DAILY 08/10/17 09/09/17 History Furosemide [Lasix] 20 mg PO HS 08/10/17 09/09/17 History Insulin Pump Cartridge [Cartridge 0.75 units SQ Q1 08/10/17 09/09/17 History Stamped] Multivitamin [One Daily] 1 tab PO DAILY 08/10/17 09/09/17 History Vitamin D3 1 tab PO DAILY 08/10/17 09/09/17 History Accu-Chek 1 each FS ACHS strip 08/12/17 09/09/17 Rx Cephalexin [Keflex] 500 mg PO QID 14 Days #56 cap 09/12/17 Rx Allergies Allergy/AdvReac Type Severity Reaction Status Date / Time Hydromorphone AdvReac Intermediate Hallucinati Verified 06/28/18 10:16 ng Zolpidem [From Ambien] AdvReac Mild Other Verified 06/28/18 10:16 Medical - H&P: Exam - Constitutional Vitals: Temp Pulse Resp BP Pulse Ox 98.4 F 80 18 124/62 97 11/06/18 09:18 11/06/18 12:31 11/06/18 09:18 11/06/18 12:31 11/06/18 12:31 Exam: General: Alert, Awake, No acute Distress, obese Eyes/N/T: EOMI, PEERL, Head/Neck: neck supple, normocephalic atraumatic CV: RRR, 2/6 SM, normal s1/s2 Pulm: b/l wheezing, no rales Abd: soft, nontender, +BS x4 Ext: no clubbing/cyanosis/edema Neuro: Alert, no focal deficits, moves all extremities, CN 2-12 grossly intact, symmetrical strength b/l upper/lower, sensations intact b/l upper/lower Skin: warm/dry Medical - H&P: Reslt - Labs CBC & Chem 7: 11/06/18 10:00 11/06/18 10:00 Labs: Short CBC 11/06/18 Range/Units 10:00 WBC 10.5 (4.5-11.0) K/mcL Hgb 12.5 (12.0-15.0) g/dL Hct 37.4 (36.0-48.0) % Plt Count 245 (140-440) K/mcL BMP 11/06/18 10:00 Sodium 137 Potassium 4.4 Chloride 102 Carbon Dioxide 25 BUN 26 H Creatinine 1.5 H Glucose 178 H Calcium 8.9 Liver Function 11/06/18 Range/Units 10:00 Total Bilirubin 0.3 (0.0-1.0) mg/dL AST 16 (0-37) U/l ALT 17 (0-40) U/l Alkaline Phosphatase 129 H (39-117) U/L Albumin 3.6 (3.2-5.2) gm/dL - Impressions CTA no pulmonary embolism or pneumonia, atelectasis present ABG with a pH 7.29 CO2 48 PaO2 48 Urine dip with nitrites and WBCs Medical - H&P: A/P - Narrative A/P Narrative: A: *Acute hypoxic respiratory failure *Bronchospasm: 2/2 to likely viral illness *?COPD as underlying component of above *CKD III: appears at baseline *h/o CHF (EF 45-50 in 2016): *CAD w/CABGx4: follows with [facility] *DM w/neuropathy: *Hypertension *Depression *Obesity * P: -Lico/prn nebs, IS/Acapella -Steroids, empiric antibiotics -Respiratory panel pending -Continue home cardiac medications - -Continue home insulin pump -ppx: Lovenox
--- NOTE | 2018-11-06 13:47 | Cat Scan Report ---
CLINICAL INFORMATION: Cough, hypoxia and left lower lobe infiltrate COMPARISON: Chest x-ray on 11/06/18 TECHNIQUE: Axial images obtained through the chest. intravenous contrast administration was administered, and scanning was performed during pulmonary arterial phase. Sagittally and coronally reformatted images were obtained. MIP reformatted images. The radiation exposure was limited using dose reduction technology. FINDINGS: The pulmonary arteries are normal with no intraluminal filling defects. The heart is normal in size and contour. There has been prior sternotomy and coronary bypass surgery. The heart size is normal. [place] coronary arteries are densely calcified. No pericardial or pleural effusion are present. There are several bands of discoid atelectasis involving the lingula and left lower lobe with milder involvement in the right lower lobe and right middle lobe. No lobar consolidation is present. In the lateral segment of the no enlarged lymph nodes are present in the mediastinum nor nilay. Right middle lobe, just beneath the minor fissure there is a well-circumscribed oval, noncalcified nodule which measures 4 x 5 mm. IMPRESSION: No evidence of pulmonary emboli Discoid atelectasis in both lungs with the greatest involvement in the lingula and left lower lobe Nonspecific 4 x 5 mm nodule in the right middle lobe. This is more likely a granuloma than a neoplasm. Follow-up unenhanced chest CT in one year is recommended. Interpreted and Authenticated by: Sudeep Chavis 11/06/18
[2018-11-06 13:49] LABS: Appearance,Urine HAZY; Bacteria,Urine MANY /hpf (0); Bilirubin,Urine NEG (NEG); Color,Urine YELLOW; Glucose,Urine (UA) NEGATIVE (NEG); Leukocyte Esterase,Urine 25 /uL (NEG); Mucus,Urine FEW /hpf (0); Protein,Urine NEG (NEG); Specific Gravity,Urine 1.025 (1.000-1.035); Urine Blood 0.2 mg/dL (<0.03); Urine Hyaline Cast 1 /lpf (0-2); Urine RBC 1 /hpf (0-1); Urine Squamous Epithelial Cell 1 /hpf (0-4); Urine Transitional Epi Cells < 1 /hpf (0-2); Urine WBC 27 /hpf (0-4); Urobilinogen,Urine NEG (NEG)
[2018-11-06] MEDS ORDERED: PROMETHAZINE 25 MG TABLET PO PRN (14:43)
[2018-11-06] MEDS ORDERED: DEXTROSE 31 GM ORAL.SUSP PO PRN (14:43)
[2018-11-06] MEDS ORDERED: DEXTROSE 50% 50 ML VIAL IV PRN (14:43)
[2018-11-06] MEDS ORDERED: ONDANSETRON 4 MG/2 ML VIAL IV PRN (14:43)
[2018-11-06] MEDS ORDERED: ACETAMINOPHEN 325 MG TABLET PO PRN (14:43)
[2018-11-06] MEDS ORDERED: IPRATROPIUM/ALBUTEROL 3 ML AMPUL.NEB NEB PRN (14:43)
[2018-11-06] MEDS ORDERED: AZITHROMYCIN 500 MG in DEXTROSE 5% IN WATER 250 ML IV SCH (15:00)
--- NOTE | 2018-11-06 15:41 | Emergency Department Note ---
ED Note Addendum Note Addendum: I saw this patient with Jeff WATKINS. I agree with his evaluation management and documentation. In particular I discussed the case with Dr. Dixon, our hospitalist who agreed to accept the patient for further care and evaluation in the hospital for respiratory failure with hypoxia and respiratory acidosis secondary to COPD exacerbation
[2018-11-06] MEDS: cefTRIAXone 1 GM VIAL IV SCH (16:00)
[2018-11-06] MEDS: 0.9 % SODIUM CHLORIDE 10 ML SYRINGE IV SCH ×2 (16:01→21:06)
[2018-11-06] MEDS: INSULIN LISPRO 1 UNIT/0.01 ML UNIT SQ SCH ×2 (17:59→20:42)
[2018-11-06] MEDS: IPRATROPIUM/ALBUTEROL 3 ML AMPUL.NEB NEB SCH (19:22)
[2018-11-06] MEDS: FERROUS GLUCONATE 324 MG TABLET PO SCH (20:42)
[2018-11-06] MEDS: PREGABALIN 75 MG CAPSULE PO SCH (20:43)
[2018-11-06] MEDS: FUROSEMIDE 20 MG TABLET PO SCH (20:43)
[2018-11-06] MEDS: METOPROLOL TARTRATE 25 MG TABLET PO SCH (20:43)
[2018-11-06] MEDS: FAMOTIDINE 20 MG TABLET PO SCH (20:44)
[2018-11-06] MEDS ORDERED: ATORVASTATIN 20 MG TABLET PO SCH (21:00)
[2018-11-06] MEDS: methylPREDNISolone SOD SUCC 40 MG/ML VIAL IV SCH ×2 (21:06→21:07)
[2018-11-07] MEDS: IPRATROPIUM/ALBUTEROL 3 ML AMPUL.NEB NEB SCH ×4 (00:53→18:48)
[2018-11-07 05:15] LABS: Basophils # (Auto) 0 K/mcL (0.0-0.3); Basophils % (Auto) 0 % (0.0-2.0); Eosinophils # (Auto) 0 K/mcL (0.0-0.7); Eosinophils % (Auto) 0 % (0.0-7.0); Granulocytes % (Auto) 88.1 % (38.0-78.0); Lymphocytes # (Auto) 0.9 K/mcL (1.5-4.8); Lymphocytes % (Auto) 9.4 % (15.5-49.0); Mean Corpuscular HGB Conc 33.5 g/dL (31.0-36.0); Monocytes # (Auto) 0.2 K/mcL (0.1-0.9); Monocytes % (Auto) 2.5 % (1.0-12.0); Platelet Count 243 K/mcL (140-440); RBC 3.87 M/mcL (4.00-5.20); Red Cell Distribution Width 14.2 % (11.5-14.5)
[2018-11-07] MEDS: 0.9 % SODIUM CHLORIDE 10 ML SYRINGE IV SCH ×3 (05:33→20:23)
[2018-11-07] MEDS: methylPREDNISolone SOD SUCC 40 MG/ML VIAL IV SCH (05:34)
[2018-11-07 05:38] LABS: ALT/SGPT 14 U/l (0-40); Albumin 3.5 gm/dL (3.2-5.2); Albumin/Globulin Ratio 1.1 (1.0-2.3); Alkaline Phosphatase 114 U/L (39-117); Bilirubin,Direct < 0.2 mg/dL (0.0-0.3); Blood Urea Nitrogen 29 mg/dl (6-20); Gamma Glutamyl Transpeptidase 26 U/L (5-36)
--- NOTE | 2018-11-07 07:21 | Internal Med Progress Note ---
Medical - PN: Subj Patient information: Note initiated : 11/07/18 at 7:10 am Service Date, if different from initiated Date: [] Patient: Mai Colon a 58 y/o F admitted on 11/06/18 for nausea/vomiting, cough since Monday, low O2 sats. Chief Complaint: [] Interval history: Ms. Colon is a 58 year old F Who presents the ED with severe shortness of breath. Patient was exposed to a sick grandchild recently. The sick grandchild was actually hospitalized at [facility] for night for respiratory issues. The patient first developed rhinorrhea on . Then on Monday she developed a cough productive cough which she was unable to expectorate sputum so is unable to describe the specimen, she also had a headache and she had more sinus congestion. She developed a sore throat as well. The symptoms continue to worsen throughout the weekend and then on Monday afternoon she started developing shortness of breath. This morning she was so short of breath that she felt she needed to come to the ER. She has had some nausea vomits morning she felt fevers chills she had one episode of diarrhea yesterday. She feels wheezy. She does not carry a diagnosis of COPD she is a former smoker quit 6 years ago. She had oxygen saturations as low as 84%. She is on a nonrebreather at first and now is on nasal cannula after 3 breathing treatments. After the second breathing treatment she finally felt improved but still is requiring 5 L of oxygen. Chest x-ray unremarkable CTA was done which showed no pulmonary embolism or pneumonia but showed atelectasis. Her ABG with a CO2 to 48 and oxygen of only 48 and a pH of 7.29. Rapid flu screen in the ER was negative. She does have a history of CHF does not have any increased edema, swelling is been controlled since being on Lasix. Also had a headache earlier. 1/2 Oxygenation requirements continue decreased through the night. Patient just put on room air this morning. Coughing is improving shortness of breath is improving although both still present. A bit of nausea this morning but otherwise no other complaints. Review of Systems: denies headache/fever/chills/vomiting/chest or abdominal pain/diarrhea. Otherwise see above. - Constitutional Vitals: Vital Signs Temp Pulse Resp BP Pulse Ox 98.4 F 86 18 134/58 92 11/07/18 02:00 11/07/18 07:01 11/07/18 07:01 11/07/18 07:01 11/07/18 07:01 Period Temp Pulse Resp BP Sys/Z[place]ora Pulse Ox Last 24 Hr 97.9 F-99.0 F 68-90 3-27 114-148/45-88 84-100 Intake and Output 11/06/18 11/07/18 11/07/18 21:59 05:59 13:59 Intake Total 1730 / 1730 740 / 740 Output Total 401 / 401 575 / 575 Balance 1329 / 1329 165 / 165 Weight 93.803 kg Intake & Output: Intake & Output 11/06/18 11/07/18 11/07/18 21:59 05:59 13:59 Intake Total 1730 / 1730 740 / 740 Output Total 401 / 401 575 / 575 Balance 1329 / 1329 165 / 165 Weight 93.803 kg Intake: IV 1250 / 1250 Sodium Chloride 0.9% 1,000 ml @ 1000 / 1000 Wide Open IV BOLUS ONE Rx#: [id number] Zithromax 500 mg In Dextrose 5% 250 / 250 in Water 250 ml @ 250 mls/hr IV Q24H [facility] Rx#:[id number] Oral 480 / 480 740 / 740 Output: Void Amount 400 / 400 575 / 575 # of times incontinent of urine Other: Meal Dinner Percent of Meal Consumed 100% Urine Appearance Clear Clear Urine Color Light Radha Light Radha Exam: General: Alert, Awake, No acute Distress, obese Eyes/N/T: EOMI, Head/Neck: neck supple, CV: RRR, 2/6 SM, normal s1/s2 Pulm: b/l wheezing, rhonchi on right Abd: soft, nontender, +BS x4 Ext: no clubbing/cyanosis/edema, right BKA Neuro: Alert, no focal deficits, moves all extremities, Skin: warm/dry Medical - PN: Obj Da - Labs CBC & Chem 7: 11/07/18 04:18 11/07/18 04:18 Labs: Abnormal Lab Results 11/07/18 11/07/18 11/06/18 04:18 04:18 12:54 RBC 3.87 L Hgb 11.4 L Hct 34.0 L Gran % 88.1 H Lymph % (Auto) 9.4 L Gran # 8.6 H Lymph # (Auto) 0.9 L Carbon Dioxide 20 L BUN 29 H Creatinine 1.4 H Glucose 375 H Alkaline Phosphatase Urine Occult Blood 0.2 A Urine Nitrate Pos A Ur Leukocyte Esterase 25 A Urine WBC 27 H Urine Bacteria Many A 11/06/18 11/06/18 10:00 10:00 RBC Hgb Hct Gran % 79.8 H Lymph % (Auto) 11.2 L Gran # 8.4 H Lymph # (Auto) 1.2 L Carbon Dioxide BUN 26 H Creatinine 1.5 H Glucose 178 H Alkaline Phosphatase 129 H Urine Occult Blood Urine Nitrate Ur Leukocyte Esterase Urine WBC Urine Bacteria Meds: Medications Acetaminophen (Tylenol) 650 mg PO Q6HP PRN PRN Reason: PAIN/FEVER > 101 Albuterol/Ipratropium (Duoneb) 3 ml NEB Q6HRT [facility] Last Admin: 11/07/18 06:35 Dose: 3 ml Albuterol/Ipratropium (Duoneb) 3 ml NEB Q6HRT PRN PRN Reason: Bronchospasm Aspirin (Aspirin) 81 mg PO DAILY [facility] Atorvastatin Calcium (Lipitor) 20 mg PO HS [facility] Last Admin: 11/06/18 20:43 Dose: 20 mg Ceftriaxone Sodium (Rocephin) 1 gm IV Q24H [facility] Last Admin: 11/06/18 16:00 Dose: 1 gm Clopidogrel Bisulfate (Plavix) 75 mg PO DAILY [facility] Dextrose (Dextrose 50%) 0 ml IV UD PRN PRN Reason: Hypoglycemia Diagnostic Test (Pha) (Accu-Chek) 1 each FS ACHS [facility] Last Admin: 11/06/18 20:42 Dose: Not Given Enoxaparin Sodium (Lovenox) 40 mg SQ DAILY [facility] Famotidine (Pepcid) 20 mg PO BID [facility] Last Admin: 11/06/18 20:44 Dose: 20 mg Ferrous Gluconate (Fergon) 324 mg PO BID [facility] Last Admin: 11/06/18 20:42 Dose: 324 mg Furosemide (Lasix) 20 mg PO BID [facility] Last Admin: 11/06/18 20:43 Dose: 20 mg Glucose (Insta-Glucose) 15 gm PO PRN PRN PRN Reason: Hypoglycemia Azithromycin 500 mg/ Dextrose 250 mls @ 250 mls/hr IV Q24H [facility] Stop: 11/08/18 15:59 Last Infusion: 11/06/18 17:20 Dose: Infused Insulin Human Lispro (Humalog) 0 unit SQ ACHS [facility]; Protocol Last Admin: 11/06/18 20:42 Dose: Not Given Lisinopril (Zestril) 5 mg PO Q48 [facility] Methylprednisolone Sodium Succinate (Solu-Medrol) 40 mg IV Q8 [facility] Last Admin: 11/07/18 05:34 Dose: 40 mg Metoprolol Tartrate (Lopressor) 25 mg PO BID [facility] Last Admin: 11/06/18 20:43 Dose: 25 mg Ondansetron HCl (Zofran) 4 mg IV Q4HP PRN PRN Reason: Nausea And Vomiting Insulin Pump 0 dose SC DUR [facility] Pregabalin (Lyrica) 225 mg PO BID [facility] Last Admin: 11/06/18 20:43 Dose: 225 mg Promethazine HCl (Phenergan) 12.5 mg PO Q6HP PRN PRN Reason: Nausea And Vomiting Sertraline HCl (Zoloft) 100 mg PO DAILY [facility] Sodium Chloride (Saline Flush) 10 ml IV Q8 [facility] Last Admin: 11/07/18 05:33 Dose: 10 ml Medical - PN: A/P - Time Spent With Patient Total time spent is greater than 50% in coordination of care (as documented) at patient's floor/unit and/or counseling patient: - Narrative A/P Narrative: A: *Acute hypoxic respiratory failure: 2/2 RSV infection -now on room air from 7L in ED *Bronchospasm: 2/2 viral illness -resp viral panel + for RSV *UTI (GNB): *CKD III: appears at baseline *h/o CHF (EF 45-50 in 2016): *CAD w/CABGx4: follows with [facility] *DM w/neuropathy: *Hypertension *Depression *Obesity * P: -Lico/prn nebs, IS/Acapella -Steroids(wean), empiric antibiotics -Continue home cardiac medications -Rocephin, pending UC -Continue home insulin pump -ppx: Lovenox Medical - PN: Qual - VTE Deep Vein Thrombosis/Pulmonary Embolism Present on Admission: No
[2018-11-07] MEDS: INSULIN LISPRO 1 UNIT/0.01 ML UNIT SQ SCH ×7 (08:50→22:24)
[2018-11-07] MEDS: FERROUS GLUCONATE 324 MG TABLET PO SCH ×2 (08:55→20:22)
[2018-11-07] MEDS: FAMOTIDINE 20 MG TABLET PO SCH ×2 (08:55→20:22)
[2018-11-07] MEDS: FUROSEMIDE 20 MG TABLET PO SCH (08:55)
[2018-11-07] MEDS: METOPROLOL TARTRATE 25 MG TABLET PO SCH ×2 (08:55→20:23)
[2018-11-07] MEDS ORDERED: FUROSEMIDE 20 MG TABLET PO ONE (08:57)
[2018-11-07] MEDS: cefTRIAXone 1 GM VIAL IV SCH (08:59)
[2018-11-07] MEDS ORDERED: CLOPIDOGREL 75 MG TABLET PO SCH (09:00)
[2018-11-07] MEDS ORDERED: ASPIRIN 81 MG TAB.CHEW PO SCH (09:00)
[2018-11-07] MEDS ORDERED: FUROSEMIDE 20 MG TABLET PO SCH ×2 (09:00→21:00)
[2018-11-07] MEDS ORDERED: ENOXAPARIN 40 MG/0.4 ML SYRINGE SQ SCH (09:00)
[2018-11-07] MEDS ORDERED: SERTRALINE 100 MG TABLET PO SCH (09:00)
[2018-11-07] MEDS: PREGABALIN 75 MG CAPSULE PO SCH ×2 (09:12→20:23)
[2018-11-07] MEDS ORDERED: IPRATROPIUM/ALBUTEROL 3 ML AMPUL.NEB NEB PRN (09:21)
[2018-11-07] MEDS ORDERED: ONDANSETRON 4 MG/2 ML VIAL IV PRN (09:21)
[2018-11-07] MEDS ORDERED: DEXTROSE 31 GM ORAL.SUSP PO PRN (09:21)
[2018-11-07] MEDS ORDERED: DEXTROSE 50% 50 ML VIAL IV PRN (09:21)
[2018-11-07] MEDS ORDERED: ACETAMINOPHEN 325 MG TABLET PO PRN (09:21)
[2018-11-07] MEDS ORDERED: PROMETHAZINE 25 MG TABLET PO PRN (09:21)
[2018-11-07] MEDS: COLLAGENASE TOP OINT TUBE 30GM TOPICAL SCH (09:50)
--- NOTE | 2018-11-07 10:32 | General Surgery Consult Note ---
History of Present Illness Patient information: Note initiated : 11/07/18 at 10:28 am Service Date, if different from initiated Date: [] Patient: Mai Colon 58 y/o F admitted on 11/06/18 for nausea/vomiting, cough since Monday, low O2 sats. Chief Complaint: [] Consult date: 11/07/18 (blister posterior left heel) Requesting physician: Jeff Dixon (Wound Care eval and treat.) History of present illness: I know this patient well. 58 years female. I saw her in ICU 120 / C along with [facility] wound care nurse. The patient was admitted with acute hypoxic respiratory insufficiency. This is improving. She has a background of diabetes, coronary artery disease, smoking and previous multiple medical problems requiring an emergency coronary artery bypass, followed by complications with right below-knee amputation. She is well known to the staff at wound care center. This time around she was seen for a blister posterior aspect of left heel. Medications and Allergies Home Medications Medication Instructions Recorded Confirmed Type Clopidogrel [Plavix] 75 mg PO DAILY 10/16/15 11/06/18 History Aspirin [Adult Low Dose Aspirin EC] 81 mg PO DAILY 04/18/16 11/06/18 History Ferrous Gluconate [Fergon] 324 mg PO BID 04/18/16 11/06/18 History Metoprolol Tartrate [Lopressor] 25 mg PO BID 04/18/16 11/06/18 History Pregabalin [Lyrica] 225 mg PO BID 04/18/16 11/06/18 History Sertraline [Zoloft] 100 mg PO DAILY 04/18/16 11/06/18 History Atorvastatin [Lipitor] 20 mg PO HS 06/22/16 11/06/18 History Lisinopril [Zestril] 5 mg PO Q48 06/22/16 11/06/18 History Furosemide [Lasix] 20 mg PO BID 08/10/17 11/06/18 History Insulin Pump Cartridge [Cartridge 0.75 units SQ Q1 08/10/17 11/06/18 History Stamped] Vitamin D3 1 tab PO DAILY 08/10/17 11/06/18 History Accu-Chek 1 each FS ACHS strip 08/12/17 11/06/18 Rx Allergies Allergy/AdvReac Type Severity Reaction Status Date / Time Hydromorphone AdvReac Intermediate Hallucinati Verified 06/28/18 10:16 ng Zolpidem [From Ambien] AdvReac Mild Other Verified 06/28/18 10:16 Exam Temp Pulse Resp BP Pulse Ox 98.8 F 95 H 20 134/61 92 11/07/18 07:52 11/07/18 08:01 11/07/18 08:01 11/07/18 08:01 11/07/18 08:01 - General physical appearance well developed, well nourished, no pain, chronically ill, other (She is feeling better. Talking in full sentences. Vital signs are stable. Oxygen saturations are about 90s with decreasing O2 supplementation.) - Eyes PERRL, normal ocular movement - ENT normal pinna, normal nares, normal mucosa - Head Head exam IM: Present: atraumatic, normal inspection, normocephalic - Neck no masses, no bruits, trachea midline, no venous distension - Cardiovascular Cardiovascular exam IM: Present: normal rate and rhythm - Respiratory other absent breath sounds: bilateral (decreased air entry at time basis. Atelectasis. Improving.) - Abdomen Abdomen: Present: soft, non tender, bowel sounds - Integumentary Present: other (Well-healed right below-knee amputation stump. Non-stage of bowel pressure ulcer with dry adherent eschar posterior aspect left heel. Some serous drainage from the periwound skin and subcutaneous tissue.) - Neurologic Present: normal coordination, other (Diabetes with peripheral neuropathy.) - Musculoskeletal Present: other (Right below-knee amputation. Ambulates with a motorized scooter or wheelchair.) - Psychiatric Present: oriented to time, oriented to person, oriented to place, speech is normal, memory intact Results - Labs 11/07/18 04:18 11/07/18 04:18 Abnormal lab results 11/06/18 11/06/18 11/06/18 Range/Units 10:00 10:00 12:54 RBC (4.00-5.20) M/mcL Hgb (12.0-15.0) g/dL Hct (36.0-48.0) % Gran % 79.8 H (38.0-78.0) % Lymph % (Auto) 11.2 L (15.5-49.0) % Gran # 8.4 H (1.8-8.0) K/mcL Lymph # (Auto) 1.2 L (1.5-4.8) K/mcL Carbon Dioxide (22-30) mmol/L BUN 26 H (6-20) mg/dl Creatinine 1.5 H (0.6-1.1) mg/dl Glucose 178 H (70-105) mg/dL Alkaline Phosphatase 129 H (39-117) U/L Urine Occult Blood 0.2 A (<0.03) mg/dL Urine Nitrate Pos A (NEG) Ur Leukocyte Esterase 25 A (NEG) /uL Urine WBC 27 H (0-4) /hpf Urine Bacteria Many A (0) /hpf 11/07/18 11/07/18 Range/Units 04:18 04:18 RBC 3.87 L (4.00-5.20) M/mcL Hgb 11.4 L (12.0-15.0) g/dL Hct 34.0 L (36.0-48.0) % Gran % 88.1 H (38.0-78.0) % Lymph % (Auto) 9.4 L (15.5-49.0) % Gran # 8.6 H (1.8-8.0) K/mcL Lymph # (Auto) 0.9 L (1.5-4.8) K/mcL Carbon Dioxide 20 L (22-30) mmol/L BUN 29 H (6-20) mg/dl Creatinine 1.4 H (0.6-1.1) mg/dl Glucose 375 H (70-105) mg/dL Alkaline Phosphatase (39-117) U/L Urine Occult Blood (<0.03) mg/dL Urine Nitrate (NEG) Ur Leukocyte Esterase (NEG) /uL Urine WBC (0-4) /hpf Urine Bacteria (0) /hpf Diabetes panel 11/06/18 11/07/18 Range/Units 10:00 04:18 Sodium 137 136 (133-145) mmol/L Potassium 4.4 4.7 (3.3-5.1) mmol/L Chloride 102 102 (96-108) mmol/L Carbon Dioxide 25 20 L (22-30) mmol/L BUN 26 H 29 H (6-20) mg/dl Creatinine 1.5 H 1.4 H (0.6-1.1) mg/dl Glucose 178 H 375 H (70-105) mg/dL Calcium 8.9 8.6 (8.6-10.4) mg/dl AST 16 13 (0-37) U/l ALT 17 14 (0-40) U/l Alkaline Phosphatase 129 H 114 (39-117) U/L Total Protein 7.0 6.8 (5.9-8.4) gm/dL Albumin 3.6 3.5 (3.2-5.2) gm/dL Triglycerides 84 (<150) mg/dl Calcium panel 11/06/18 11/07/18 Range/Units 10:00 04:18 Calcium 8.9 8.6 (8.6-10.4) mg/dl Phosphorus 3.3 (2.7-4.5) mg/dL Albumin 3.6 3.5 (3.2-5.2) gm/dL Pituitary panel 11/06/18 11/07/18 Range/Units 10:00 04:18 Sodium 137 136 (133-145) mmol/L Potassium 4.4 4.7 (3.3-5.1) mmol/L Chloride 102 102 (96-108) mmol/L Carbon Dioxide 25 20 L (22-30) mmol/L BUN 26 H 29 H (6-20) mg/dl Creatinine 1.5 H 1.4 H (0.6-1.1) mg/dl Glucose 178 H 375 H (70-105) mg/dL Calcium 8.9 8.6 (8.6-10.4) mg/dl Adrenal panel 11/06/18 11/07/18 Range/Units 10:00 04:18 Sodium 137 136 (133-145) mmol/L Potassium 4.4 4.7 (3.3-5.1) mmol/L Chloride 102 102 (96-108) mmol/L Carbon Dioxide 25 20 L (22-30) mmol/L BUN 26 H 29 H (6-20) mg/dl Creatinine 1.5 H 1.4 H (0.6-1.1) mg/dl Glucose 178 H 375 H (70-105) mg/dL Calcium 8.9 8.6 (8.6-10.4) mg/dl Total Bilirubin 0.3 0.2 (0.0-1.0) mg/dL AST 16 13 (0-37) U/l ALT 17 14 (0-40) U/l Alkaline Phosphatase 129 H 114 (39-117) U/L Total Protein 7.0 6.8 (5.9-8.4) gm/dL Albumin 3.6 3.5 (3.2-5.2) gm/dL All other labs normal. Assessment and Plan (1) Blister (nonthermal) of other specified part of neck, initial encounter Assessment: PAD, diabetes with peripheral neuropathy, history of right BKA. Non-stable adherent eschar with a blister posterior aspect of left heel. Plan: See detailed wound care orders. We will follow this patient while she is in the hospital. If discharged, follow up at the wound care center in 1 week. Status: Chronic Priority: Medium
[2018-11-07] MEDS: AZITHROMYCIN 500 MG in DEXTROSE 5% IN WATER 250 ML IV SCH (10:59)
[2018-11-07] MEDS ORDERED: cefTRIAXone 1 GM VIAL IV SCH (15:00)
--- NOTE | 2018-11-07 17:00 | Discharge Summary ---
Medical - DS: Prov Patient information: Note initiated : 11/07/18 at 4:57 pm Service Date, if different from initiated Date: [] Patient: Mai Colon 58 y/o F admitted on 11/06/18 for nausea/vomiting, cough since Monday, low O2 sats. Chief Complaint: [] Date of admission: 11/06/18 14:00 Discharge date: 11/08/18 Primary care physician: Traci Virgen Consults: 11/06/18 Consult to Physician [CONS] Stat Comment: Consulting Provider: Jeff Dixon Reason For Exam: Physician to Consult 11/07/18 08:41 Consult to Physician [CONS] Routine Comment: left heel wound Consulting Provider: Bart Knutson Reason For Exam: Physician to Consult Medical - DS: Meds - Discharge Medications Prescriptions: Cephalexin [Keflex] 500 mg PO BID #10 cap Active and Home Medications: Home Medications Clopidogrel [Plavix] 75 mg PO DAILY 10/16/15 [History Confirmed 11/06/18 Last Taken 09/08/17 21:00] Aspirin [Adult Low Dose Aspirin EC] 81 mg PO DAILY 04/18/16 [History Confirmed 11/06/18 Last Taken 09/08/17 08:00] Ferrous Gluconate [Fergon] 324 mg PO BID 04/18/16 [History Confirmed 11/06/18 Last Taken 09/08/17 21:00] Metoprolol Tartrate [Lopressor] 25 mg PO BID 04/18/16 [History Confirmed Last Taken 09/08/17 21:00] Pregabalin [Lyrica] 225 mg PO BID 04/18/16 [History Confirmed 11/06/18 Last Taken 09/08/17 21:00] Sertraline [Zoloft] 100 mg PO DAILY 04/18/16 [History Confirmed 11/06/18 Last Taken 09/08/17 21:00] Atorvastatin [Lipitor] 20 mg PO HS 06/22/16 [History Confirmed 11/06/18 Last Taken 09/08/17 21:00] Lisinopril [Zestril] 5 mg PO Q48 06/22/16 [History Confirmed 11/06/18 Last Taken 09/08/17 21:00] Furosemide [Lasix] 20 mg PO BID 08/10/17 [History Confirmed 11/06/18 Last Taken 09/08/17 21:00] Insulin Pump Cartridge [Cartridge Stamped] 0.75 units SQ Q1 08/10/17 [History Confirmed 11/06/18 Last Taken 09/09/17 17:00] Vitamin D3 1 tab PO DAILY 08/10/17 [History Confirmed 11/06/18 Last Taken 08:00] Accu-Chek 1 each FS ACHS strip 08/12/17 [Rx Confirmed 11/06/18 Last Taken 09/09 16:00] Medical - DS: Hosp Hospital course: Ms. Colon is a 58 year old F Who presents the ED with severe shortness of breath. Patient was exposed to a sick grandchild recently. The sick grandchild was actually hospitalized at [facility] for night for respiratory issues. The patient first developed rhinorrhea on . Then on Monday she developed a cough productive cough which she was unable to expectorate sputum so is unable to describe the specimen, she also had a headache and she had more sinus congestion. She developed a sore throat as well. The symptoms continue to worsen throughout the weekend and then on Monday afternoon she started developing shortness of breath. This morning she was so short of breath that she felt she needed to come to the ER. She has had some nausea vomits morning she felt fevers chills she had one episode of diarrhea yesterday. She feels wheezy. She does not carry a diagnosis of COPD she is a former smoker quit 6 years ago. She had oxygen saturations as low as 84%. She is on a nonrebreather at first and now is on nasal cannula after 3 breathing treatments. After the second breathing treatment she finally felt improved but still is requiring 5 L of oxygen. Chest x-ray unremarkable CTA was done which showed no pulmonary embolism or pneumonia but showed atelectasis. Her ABG with a CO2 to 48 and oxygen of only 48 and a pH of 7.29. Rapid flu screen in the ER was negative. She does have a history of CHF does not have any increased edema, swelling is been controlled since being on Lasix. Also had a headache earlier. 1/2 Oxygenation requirements continue decreased through the night. Patient just put on room air this morning. Coughing is improving shortness of breath is improving although both still present. A bit of nausea this morning but otherwise no other complaints. 1/3 Feeling well, on room air. Urine culture and sensitivity came back Klebsiella. Patient doing well and stable for discharge. Discharge diagnosis: Bronchospasm RSV infection UTI acute hypoxic respiratory failure - Time Spent with Patient Total time spent providing and/or coordinating discharge services: Greater than 30 minutes Medical - DS: Exam - Constitutional Vitals: Vital Signs Temp Pulse Pulse Resp BP BP Pulse Ox 11/07/18 13:07 95 H 14 11/07/18 12:00 98.6 F 88 14 123/58 96 11/07/18 08:01 95 H 20 134/61 92 11/07/18 08:00 93 11/07/18 07:52 98.8 F 11/07/18 07:01 86 18 134/58 92 11/07/18 06:59 92 11/07/18 06:58 84 18 11/07/18 06:05 81 20 125/52 94 11/07/18 05:01 81 20 148/79 98 11/07/18 04:01 80 19 141/69 95 11/07/18 03:01 82 21 122/64 93 11/07/18 02:00 98.4 F 82 82 22 129/51 92 11/07/18 01:35 82 16 11/07/18 01:08 77 19 96 11/07/18 01:01 69 22 146/73 95 11/07/18 00:07 78 17 94 11/07/18 00:01 79 24 H 139/71 96 11/06/18 23:01 79 21 141/75 96 11/06/18 22:01 81 20 128/59 95 11/06/18 21:40 85 20 95 11/06/18 21:01 16 125/88 11/06/18 20:19 97.9 F 89 22 135/65 97 11/06/18 20:00 90 22 97 11/06/18 19:54 78 18 96 11/06/18 19:46 88 22 115/79 97 11/06/18 19:31 80 14 132/59 100 11/06/18 19:25 82 18 11/06/18 19:16 80 27 H 131/55 96 11/06/18 19:01 79 20 117/55 96 11/06/18 18:46 80 21 127/53 95 01/01/19 18:31 80 20 130/68 95 11/06/18 18:16 81 19 118/48 95 11/06/18 18:01 81 24 H 117/45 96 11/06/18 17:46 19 119/51 11/06/18 17:38 17 11/06/18 17:31 19 121/64 11/06/18 17:16 81 15 123/63 96 11/06/18 17:01 81 17 117/63 97 Intake and Output 11/07/18 11/07/18 11/07/18 05:59 13:59 21:59 Intake Total 740 / 740 850 / 850 Output Total 575 / 575 Balance 165 / 165 850 / 850 Intake: IV 250 / 250 Zithromax 500 mg In Dextrose 5% 250 / 250 in Water 250 ml @ 250 mls/hr IV Q24H [facility] Rx#:[id number] Oral 740 / 740 600 / 600 Output: Void Amount 575 / 575 Other: Meal Lunch Percent of Meal Consumed 100% Feeding Ability Independent Urine Appearance Clear Urine Color Light Radha Weight 93.803 kg Patient Weight 11/08/18 05:59 Weight 93.803 kg Medical - DS: Data Labs on day of discharge: Labs from last 24 hours 11/07/18 11/07/18 04:18 04:18 WBC 9.7 RBC 3.87 L Hgb 11.4 L Hct 34.0 L MCV 88.0 MCH 29.5 MCHC 33.5 RDW 14.2 Plt Count 243 MPV 9.9 Gran % 88.1 H Lymph % (Auto) 9.4 L Tift % (Auto) 2.5 Eos % (Auto) 0 Baso % (Auto) 0 Gran # 8.6 H Lymph # (Auto) 0.9 L Tift # (Auto) 0.2 Eos # (Auto) 0 Baso # (Auto) 0 Sodium 136 Potassium 4.7 Chloride 102 Carbon Dioxide 20 L Anion Gap 14.0 BUN 29 H Creatinine 1.4 H GFR Calculation 41 Glucose 375 H Uric Acid 7.0 Calcium 8.6 Phosphorus 3.3 Magnesium 1.9 Total Bilirubin 0.2 Direct Bilirubin < 0.2 GGT 26 AST 13 ALT 14 Alkaline Phosphatase 114 Lactate Dehydrogenase 202 Total Protein 6.8 Albumin 3.5 Globulin 3.3 Albumin/Globulin Ratio 1.1 Triglycerides 84 Preliminary micro results at discharge 11/06/18 12:54 Urine Culture - Preliminary Urine - Clean Void Mid-Stream Gram negative bacillus Medical - DS: A/P - Patient/Caregiver Discharge Instructions Activity: increase activity as tolerated Diet: Consistent Carbohydrate Prescriptions: Cephalexin [Keflex] 500 mg PO BID #10 cap - Follow up Plan Follow up with: Traci Virgen MD [Primary Care Provider] - Disposition: Home, Self-Care Prognosis: Fair Rehab Potential: Fair Medical - DS: Qual - VTE Deep Vein Thrombosis/Pulmonary Embolism Present on Admission: No
[2018-11-07] MEDS: predniSONE 20 MG TABLET PO SCH (17:34)
[2018-11-07] MEDS ORDERED: methylPREDNISolone SOD SUCC 40 MG/ML VIAL IV SCH ×2 (21:00)
[2018-11-07] MEDS ORDERED: ATORVASTATIN 20 MG TABLET PO SCH (21:00)
[2018-11-08] MEDS: IPRATROPIUM/ALBUTEROL 3 ML AMPUL.NEB NEB SCH ×2 (00:49→07:11)
[2018-11-08] MEDS: INSULIN LISPRO 1 UNIT/0.01 ML UNIT SQ SCH ×4 (00:55→08:02)
[2018-11-08] MEDS: 0.9 % SODIUM CHLORIDE 10 ML SYRINGE IV SCH (04:42)
[2018-11-08 06:11] LABS: Basophils # (Auto) 0 K/mcL (0.0-0.3); Basophils % (Auto) 0.1 % (0.0-2.0); Eosinophils # (Auto) 0 K/mcL (0.0-0.7); Eosinophils % (Auto) 0 % (0.0-7.0); Granulocytes % (Auto) 82.2 % (38.0-78.0); Lymphocytes # (Auto) 1.3 K/mcL (1.5-4.8); Lymphocytes % (Auto) 10.3 % (15.5-49.0); Mean Cell Volume 87.5 fL (80.0-100.0); Mean Corpuscular HGB Conc 33.1 g/dL (31.0-36.0); Monocytes # (Auto) 0.9 K/mcL (0.1-0.9); Monocytes % (Auto) 7.4 % (1.0-12.0); Platelet Count 292 K/mcL (140-440); RBC 4.02 M/mcL (4.00-5.20); Red Cell Distribution Width 13.8 % (11.5-14.5)
[2018-11-08 06:15] LABS: Prealbumin 18.2 mg/dl (20-40)
[2018-11-08 06:16] LABS: Blood Urea Nitrogen 45 mg/dl (6-20)
[2018-11-08 06:19] LABS: Hemoglobin A1C 8.1 % HGB (4.0-6.0)
[2018-11-08] MEDS: predniSONE 20 MG TABLET PO SCH (07:56)
[2018-11-08] MEDS ORDERED: BENZONATATE 100 MG CAPSULE PO ONE (08:46)
[2018-11-08] MEDS: PREGABALIN 75 MG CAPSULE PO SCH (08:49)
[2018-11-08] MEDS: METOPROLOL TARTRATE 25 MG TABLET PO SCH (08:50)
[2018-11-08] MEDS: FERROUS GLUCONATE 324 MG TABLET PO SCH (08:50)
[2018-11-08] MEDS: FAMOTIDINE 20 MG TABLET PO SCH (08:50)
[2018-11-08] MEDS ORDERED: CLOPIDOGREL 75 MG TABLET PO SCH (09:00)
[2018-11-08] MEDS ORDERED: SERTRALINE 100 MG TABLET PO SCH (09:00)
[2018-11-08] MEDS ORDERED: ASPIRIN 81 MG TAB.CHEW PO SCH (09:00)
[2018-11-08] MEDS ORDERED: cefTRIAXone 1 GM VIAL IV SCH (09:00)
[2018-11-08] MEDS ORDERED: LISINOPRIL 5 MG TABLET PO SCH ×2 (09:00)
[2018-11-08] MEDS ORDERED: ENOXAPARIN 40 MG/0.4 ML SYRINGE SQ SCH (09:00)
[2018-11-08] MEDS: COLLAGENASE TOP OINT TUBE 30GM TOPICAL SCH (09:33)
[2018-11-08] MEDS: AZITHROMYCIN 500 MG in DEXTROSE 5% IN WATER 250 ML IV SCH (09:33)
== END 2018-11-08 11:15 | disposition home or self-care (01) | DRG 202 ==
LOC: ED 09:17 → ICU 14:00 → MEDSUR 11-07 09:40
PROVIDERS: ADMIT Internal Medicine; ATTEND Internal Medicine

== ENCOUNTER 2020-10-09 08:45 | Inpatient (IN) ==
[2020-10-09] MEDS ORDERED: VANCOMYCIN 1,000 MG in 0.9 % SODIUM CHLORIDE 250 ML IV ONE (09:09)
[2020-10-09] MEDS ORDERED: PIPERACILLIN SODIUM/TAZOBACTAM 3.375 GM in DEXTROSE 5% IN WATER 50 ML IV ONE (09:09)
[2020-10-09] MEDS ORDERED: 0.9 % SODIUM CHLORIDE 1,000 ML IV SCH (09:15)
--- NOTE | 2020-10-09 09:24 | Emergency Department Note ---
Lower Extremity Injury HPI General Chief Complaint: Extremity Injury, Lower Stated Complaint: Left foot infection Time Seen by Provider: 10/09/20 09:08 Source: patient, RN notes reviewed and old records reviewed Mode of arrival: ambulatory Limitations: no limitations History of Present Illness HPI Narrative: Narrative: This patient was sent over from wound care by Dr. Richardson that he plans to take her to the operating room later today. She has a left diabetic foot infection. He would like us to do the preop and start antibiotics and get her ready for surgery. She did have a negative Covid test last week and has had no new symptoms. Related Data Home Medications Medication Instructions Recorded Confirmed clopidogrel 75 mg PO DAILY 10/16/15 06/24/20 metoprolol tartrate 25 mg PO BID 04/18/16 06/24/20 sertraline 100 mg PO DAILY 04/18/16 06/19/20 insulin pump cartridge 08/10/17 03/25/19 atorvastatin 20 mg tablet 40 mg PO HS 11/26/18 06/19/20 blood-glucose meter #1 each 11/26/18 03/11/19 insulin pump cartridge #5 each 11/26/18 03/11/19 pregabalin 75 mg capsule 75 mg PO BID 11/26/18 06/19/20 zaleplon 10 mg capsule 10 mg PO HS 11/26/18 06/19/20 insulin lispro 100 unit/mL See Rx Instructions SUB-Q .COMPLEX 11/28/18 06/19/20 subcutaneous solution furosemide 20 mg tablet See Rx Instructions .ROUTE 02/14/19 06/19/20 .COMPLEX tab hydrocodone-acetaminophen 1 tab PO Q8H PRN 06/19/20 06/24/20 Previous Rx's Medication Instructions Recorded Accu-Chek 1 each FS ACHS strip 08/12/17 Allergies Allergy/AdvReac Type Severity Reaction Status Date / Time adhesive Allergy Unknown Unknown Verified 10/09/20 08:58 sulfamethoxazole Allergy Unknown Verified 10/09/20 08:58 [From ] trimethoprim [From ] Allergy Unknown Verified 10/09/20 08:58 hydromorphone [Hydromorphone] AdvReac Mild Hallucinati Verified 10/09/20 08:45 ng Zolpidem [From Ambien] AdvReac Mild sleep Verified 10/09/20 08:45 walking and sleep eating Review of Systems ROS ROS Narrative: Narrative: All systems ED: reviewed and negative except as stated. [facility] Narrative Patient History Narrative: Narrative: Medical/Surgical/Family History All Active Problems (Updated 10/09/20 @ 11:43 by Raf Aguilar MD) Angina pectoris, unspecified (Acute) Hyperglycemia due to type 1 diabetes mellitus (Acute) Status post aorto-coronary artery bypass graft (Acute) Coarse tremors (Acute) Contusion (Acute) Cellulitis of foot, left (Acute) Acute osteomyelitis of left foot (Acute) Hyperkalemia (Chronic) Diabetic ulcer of left heel (Chronic) Acute bronchitis due to respiratory syncytial virus (RSV) (Chronic) Type 1 diabetes mellitus with other specified complication (Chronic) Cardiomyopathy (Chronic) RSV infection (Chronic) Hypoxia (Chronic) Dyspnea (Chronic) Obese (Chronic) Loss of sensation (Chronic) Clotting disorder (Chronic) Bruise (Chronic) Stress incontinence (Chronic) Tingling (Chronic) Diarrhea (Chronic) Weight gain (Chronic) Sleep apnea (Chronic) Pneumonia (Chronic) Wears glasses (Chronic) COPD (chronic obstructive pulmonary disease) (Chronic) Stomach ulcer (Chronic ~07/30/16) Hypolipidemia (Chronic) Gangrene (Chronic) Hypotension (Chronic) Depression (Chronic) PVD (peripheral vascular disease) (Chronic) Hyperlipidemia (Chronic) Retinopathy (Chronic) Insomnia (Chronic) Neuropathy (Chronic) Blister of left heel (Chronic) Congestive heart failure (Chronic) Bilateral pleural effusion (Acute) Dilated cardiomyopathy (Chronic) Edema, leg (Acute) SOB (shortness of breath) (Acute) Wound dehiscence (Acute) Alyssa infection of genital region (Acute) Delayed surgical wound healing (Acute) Cellulitis and abscess of leg (Acute) Right BKA infection (Acute) Cellulitis of right anterior lower leg (Acute) Treatment (Acute) Amputation stump infection (Acute) Anemia (Acute) Epigastric abdominal pain (Acute) Dyspepsia (Acute) Cellulitis of left leg (Acute) UTI (urinary tract infection) (Acute) Pyelonephritis (Acute) SIRS (systemic inflammatory response syndrome) (Acute) Type 1 diabetes (Acute) Partial tear of left Achilles tendon (Acute) COPD exacerbation (Acute) Blister (nonthermal) of other specified part of neck, initial encounter (Chronic) Medical History (Updated 10/09/20 @ 11:43 by Raf Aguilar MD) Acute bronchitis due to respiratory syncytial virus (RSV) (Chronic) Amputation stump infection (Acute) Anemia (Acute) Bilateral pleural effusion (Acute) Blister of left heel (Chronic) Bruise (Chronic) Alyssa infection of genital region (Acute) Cardiomyopathy (Chronic) Cellulitis and abscess of leg (Acute) Cellulitis of right anterior lower leg (Acute) Clotting disorder (Chronic) Congestive heart failure (Chronic) COPD (chronic obstructive pulmonary disease) (Chronic) Delayed surgical wound healing (Acute) POST OP NOTE: Post operative pain controlled with Demorol. Dressings CDI. Will give Benadryl 25 to 50 mg PRN for insomnia. Ativan 0.5 to 1.0 mg PRN for anxiety. Elevation of right BKA stump and left leg over pillows. Reassess in AM. Depression (Chronic) Diabetic ulcer of left heel (Chronic) Diarrhea (Chronic) Dilated cardiomyopathy (Chronic) Dyspepsia (Acute) Dyspnea (Chronic) Edema, leg (Acute) Epigastric abdominal pain (Acute) Gangrene (Chronic) Hyperkalemia (Chronic) Hyperlipidemia (Chronic) Hypolipidemia (Chronic) Hypotension (Chronic) Hypoxia (Chronic) Insomnia (Chronic) Loss of sensation (Chronic) Neuropathy (Chronic) Obese (Chronic) Pneumonia (Chronic) PVD (peripheral vascular disease) (Chronic) Retinopathy (Chronic) Right BKA infection (Acute) RSV infection (Chronic) Sleep apnea (Chronic) SOB (shortness of breath) (Acute) Stomach ulcer (Chronic ~07/30/16) Stress incontinence (Chronic) Tingling (Chronic) Treatment (Acute) Type 1 diabetes mellitus with other specified complication (Chronic) Wears glasses (Chronic) Weight gain (Chronic) Wound dehiscence (Acute) Surgical History History of angioplasty (Chronic ~2016) Right Femoral Popliteal Distal Vein Graft Stenosis History of (Chronic) History of right below knee amputation (Chronic) History of surgery (Chronic) Anterior Tibial Artery Runoff (W 50% Proximal Stenosis 2016) Heart Cath/Coronaries (Right&Left) LV/IFR Pressure Wire-09/20/2016 (Pressures W Co/Cordo) Achilles Tendon Lengthening Hx of CABG (Chronic) Status post angioplasty of vein (Chronic) Family History Mother Diabetes Brother Hypertriglyceridemia Father , 68 years old PE (pulmonary thromboembolism) Social History Smoking Status: Former smoker Alcohol Intake Frequency: does not drink Substance Use: does not use Exam Narrative Narrative: Narrative: General Limitations: no limitations Head Head: Present atraumatic, normocephalic and normal inspection Eye Eye: Present normal appearance and EOMI; Absent scleral icterus and conjunctival injection Neck Neck: Present normal inspection and full ROM Chest Chest: Present normal inspection and symmetric chest wall rise Respiratory Respiratory: Present normal lung sounds bilaterally; Absent respiratory distress, rales/crackles and wheezes Cardiovascular Cardiovascular: Present regular rate, normal rhythm and normal heart sounds Adbominal Abdominal: Present soft; Absent distention and tenderness Neurological Neurological: Present alert Psychiatric Psychiatric: Present normal affect Skin Skin: Present warm (WNL) and dry; Absent diaphoresis Course Vital Signs Vital signs: Vital Signs Temperature 97.7 F 10/09/20 08:45 Pulse Rate 51 L 10/09/20 08:45 Respiratory Rate 16 10/09/20 08:45 Blood Pressure 146/62 10/09/20 08:45 Pulse Oximetry (%) 96 10/09/20 08:45 Temperature 97.7 F 10/09/20 08:45 Pulse Rate 51 L 10/09/20 11:37 Respiratory Rate 16 10/09/20 08:45 Blood Pressure 160/64 10/09/20 11:37 Pulse Oximetry (%) 97 10/09/20 11:37 MDM MDM Narrative Medical decision making narrative: Narrative: I discussed case with Dr. Tyler and she will be admitted to the hospital for surgery today. Preop chest x-ray and EKG were normal. We did give her vancomycin and Zosyn. Lab Data Lab results reviewed: Yes I reviewed the patient's lab results. Lab results narrative: White count was slightly elevated at 12.3. Result diagrams: 10/09/20 09:30 10/09/20 09:30 Labs: Lab Results 10/09/20 10/09/20 10/09/20 Range/Units 09:30 09:30 09:30 WBC 12.3 H (4.5-11.0) K/mcL RBC 4.33 (4.00-5.20) M/mcL Hgb 11.9 L (12.0-15.0) g/dL Hct 37.4 (36.0-48.0) % MCV 86.4 (80.0-100.0) fL MCH 27.5 (26.0-34.0) pg MCHC 31.8 (31.0-36.0) g/dL RDW 14.5 (11.5-14.5) % Plt Count 416 (140-440) K/mcL MPV 11.2 H (7.4-10.4) fL Neut % (Auto) 69.3 (38.0-78.0) % Lymph % (Auto) 21.5 (15.0-49.0) % [place] % (Auto) 6.4 (1.0-12.0) % Eos % (Auto) 2.1 (0.0-7.0) % Baso % (Auto) 0.7 (0.0-2.0) % Lymph # (Auto) 2.63 (1.50-4.80) K/mcL [place] # (Auto) 0.78 (0.10-0.90) K/mcL Eos # (Auto) 0.26 (0.00-0.70) K/mcL Baso # (Auto) 0.09 (0.00-0.20) K/mcL Absolute Neutrophils 8.50 H (1.80-8.00) K/mcL VBG Lactic Acid 1.0 (0.5-2.0) mmol/L Sodium 135 (133-145) mmol/L Potassium 3.9 (3.3-5.1) mmol/L Chloride 101 (96-108) mmol/L Carbon Dioxide 26 (22-30) mmol/L Anion Gap 8.0 (8.0-16.0) BUN 44 H (6-20) mg/dL Creatinine 1.5 H (0.6-1.1) mg/dL GFR Calculation 37 Glucose 187 H (70-105) mg/dL Calcium 9.1 (8.6-10.4) mg/dL Total Bilirubin 0.3 (0.1-1.0) mg/dL AST 13 (<32) U/L ALT 18 (<40) U/L Alkaline Phosphatase 111 (39-117) U/L Total Protein 7.4 (5.9-8.4) gm/dL Albumin 3.5 (3.2-5.2) gm/dL Globulin 3.9 H (2.2-3.7) gm/dL Albumin/Globulin Ratio 0.9 L (1.0-2.3) Radiology Data Radiology results reviewed: Yes I reviewed the patient's radiology results. Radiology results narrative: X-ray of the left foot does show evidence of osteomyelitis in the toe. EKG Data EKG #1: EKG attestation: Yes I reviewed and interpreted this EKG. and Yes There are no EKG findings of acute coronary syndrome EKG shows normal: sinus rhythm Rate: normal Rhythm: NSR Discharge Plan Patient/Caregiver Discharge Instructions Pt seen by HELP DESK OPERATOR/PA only: No Clinical Impression: Cellulitis of foot, left, Acute osteomyelitis of left foot Patient Disposition: Xfer As Inpt ([facility] Follow up with: Traci Virgen MD [Primary Care Provider] - Prescriptions: No Action Lyrica 75 mg capsule 75 mg PO BID RF: 0 atorvastatin 20 mg tablet 40 mg PO HS RF: 0 (DME) blood-glucose meter [Accu-Chek Guide Glucose Meter] misc See Dose Instructions .ROUTE .MEDSUPPLY Qty: 1 RF: 0 (DME) insulin pump cartridge cartridge See Dose Instructions .ROUTE .MEDSUPPLY Qty: 5 RF: 0 zaleplon 10 mg capsule 10 mg PO HS RF: 0 Humalog U-100 Insulin 100 unit/mL solution See Rx Instructions SUB-Q .COMPLEX RF: 0 furosemide 20 mg tablet See Rx Instructions .ROUTE .COMPLEX RF: 0 clopidogrel 75 MG tablet 75 mg PO DAILY RF: 0 metoprolol tartrate 25 MG tablet 25 mg PO BID RF: 0 sertraline 100 MG tablet 100 mg PO DAILY RF: 0 (DME) insulin pump cartridge 1 EACH cartridge 0.75 units SQ Q1 RF: 0 Accu-Chek 1 EACH strip 1 each FS ACHS RF: 0 hydrocodone-acetaminophen 7.5-325 mg Tablet 1 tab PO Q8H PRN (Reason: Pain) RF: 0
--- NOTE | 2020-10-09 09:30 | XRay Report ---
INDICATION: pre-op TECHNIQUE: AP portable upright chest x-ray COMPARISON: Previous chest x-rays dated 06/19/2020, 04/11/2019, 03/25/2019 FINDINGS: Lungs:Lungs are negative. No focal pulmonary parenchymal infiltrate or mass Heart, vascular:Mild cardiomegaly, unchanged Mediastinum, nilay:Mediastinum appears wide but this is probably related to magnification and AP positioning Pleura:No pleural fluid. No pleural-based mass or calcification Skeletal and soft tissue:Previous median sternotomy. Multiple surgical clips are related to coronary artery bypass procedure. There is a part of a sternotomy wire cutaneous soft tissues of the right hemithorax. This has migrated slightly. This is not intrathoracic. IMPRESSION: 1. Cardiomegaly without pulmonary edema 2. No focal pulmonary parenchymal infiltrate 3. No significant interval change since 06/19/2020 Interpreted and Authenticated by: Christian Flynn 10/09/20
--- NOTE | 2020-10-09 09:32 | XRay Report ---
INDICATION: r/o osteo TECHNIQUE: AP, oblique, lateral left foot COMPARISON: Comparison made with previous left foot dated 06/17/2020 FINDINGS: Left digit is no longer present consistent with interval amputation. There is soft tissue irregularity in the lateral aspects of the left foot. Left 5th metatarsal is abnormal. There is cortical destruction with associated soft tissue swelling. Appearance is consistent with osteomyelitis. No soft tissue gas bubbles. No radiopaque foreign body IMPRESSION: 1. Previous left 5th digit amputation 2. Soft tissue swelling and cortical destruction involving the distal left 5th metatarsal. Findings are consistent with cellulitis and osteomyelitis. Interpreted and Authenticated by: Christian Flynn 10/09/20
[2020-10-09 10:16] LABS: Basophils # (Auto) 0.09 K/mcL (0.00-0.20); Basophils % (Auto) 0.7 % (0.0-2.0); Eosinophils # (Auto) 0.26 K/mcL (0.00-0.70); Eosinophils % (Auto) 2.1 % (0.0-7.0); Hematocrit 37.4 % (36.0-48.0); Hemoglobin 11.9 g/dL (12.0-15.0); Lymphocytes # (Auto) 2.63 K/mcL (1.50-4.80); Lymphocytes % (Auto) 21.5 % (15.0-49.0); Mean Cell Volume 86.4 fL (80.0-100.0); Mean Corpuscular HGB Conc 31.8 g/dL (31.0-36.0); Mean Platelet Volume 11.2 fL (7.4-10.4); Monocytes # (Auto) 0.78 K/mcL (0.10-0.90); Monocytes % (Auto) 6.4 % (1.0-12.0); Neutrophils % (Auto) 69.3 % (38.0-78.0); Platelet Count 416 K/mcL (140-440); RBC 4.33 M/mcL (4.00-5.20); Red Cell Distribution Width 14.5 % (11.5-14.5); WBC 12.3 K/mcL (4.5-11.0)
[2020-10-09 10:38] LABS: ALT/SGPT 18 U/L (<40); AST/SGOT 13 U/L (<32); Albumin 3.5 gm/dL (3.2-5.2); Albumin/Globulin Ratio 0.9 (1.0-2.3); Alkaline Phosphatase 111 U/L (39-117); Bilirubin,Total 0.3 mg/dL (0.1-1.0); Blood Urea Nitrogen 44 mg/dL (6-20); Calcium 9.1 mg/dL (8.6-10.4); Carbon Dioxide 26 mmol/L (22-30); Chloride 101 mmol/L (96-108); Globulin 3.9 gm/dL (2.2-3.7); Glomerular Filtration Rate 37; Glucose 187 mg/dL (70-105)
[2020-10-09 12:05] LABS: Appearance,Urine CLEAR (Clear); Bacteria,Urine FEW /hpf (0); Bilirubin,Urine Negative (Negative); Color,Urine YELLOW; Culture Indicated,Urine yes; Glucose,Urine (UA) Negative (Negative); Ketones,Urine Negative (Negative); Leukocyte Esterase,Urine 25 /ug (Negative); Mucus,Urine FEW /hpf; Nitrate,Urine POS (Negative); Protein,Urine Negative (Negative); Specific Gravity,Urine 1.013 (1.000-1.035); Urine RBC 2 /hpf (0-1); Urine Squamous Epithelial Cell 3 /hpf (0-4); Urine WBC 21 /hpf (0-4); Urobilinogen,Urine Negative
--- NOTE | 2020-10-09 13:51 | Internal Med History&Physical ---
HPI History of Present Illness Patient information: Note initiated : 10/09/20 at 1:51 pm Service Date, if different from initiated Date: [] Patient: Mai Colon a 60 y/o F admitted on for Lt Foot Infection. Chief Complaint: Diabetic left foot with swelling/drainage History of present illness: Ms. Colon is a 60 year old F known IDDM since age 16 on insulin pump/history of CAD/CKD stage III/HTN/prior right BKA/neuropathy and chronic pain who presents to the ER with 5-day onset of worsening left foot Postsurgical wound infection. Apparently patient missed her follow-up appointments around . She was seen at the wound clinic for ev aluation and was found to have malodorous discharge along with swelling redness involving left foot fifth toe amputation stump surgical site undermining edges. Patient denied associated fever, chills or worsening pain. She was evaluated in the ER initial work-up was consistent with elevated white count 12.3/pyuria and imaging sensitive of osteomyelitis. Wound care recommend admission for operat crow intervention. Subsequently hospitalist service was consulted At the time of my evaluation patient is accompanied with her . She was able to answer most of the questions. Denies fever, chills, recurrent MRSA or staph infection. She further denies dysuria, diarrhea, poor blood sugar control. Her normal blood sugars ranges between 100-1 60s. She is currently on insulin pump and does carb counting. Review of systems 10 point review system was performed and is negative except for ones discussed above PFSH PFSH All Active Problems (Updated 10/09/20 @ 11:43 by Raf Aguilar MD) Angina pectoris, unspecified (Acute) Hyperglycemia due to type 1 diabetes mellitus (Acute) Status post aorto-coronary artery bypass graft (Acute) Coarse tremors (Acute) Contusion (Acute) Cellulitis of foot, left (Acute) Acute osteomyelitis of left foot (Acute) Hyperkalemia (Chronic) Diabetic ulcer of left heel (Chronic) Acute bronchitis due to respiratory syncytial virus (RSV) (Chronic) Type 1 diabetes mellitus with other specified complication (Chronic) Cardiomyopathy (Chronic) RSV infection (Chronic) Hypoxia (Chronic) Dyspnea (Chronic) Obese (Chronic) Loss of sensation (Chronic) Clotting disorder (Chronic) Bruise (Chronic) Stress incontinence (Chronic) Tingling (Chronic) Diarrhea (Chronic) Weight gain (Chronic) Sleep apnea (Chronic) Pneumonia (Chronic) Wears glasses (Chronic) COPD (chronic obstructive pulmonary disease) (Chronic) Stomach ulcer (Chronic ~07/30/16) Hypolipidemia (Chronic) Gangrene (Chronic) Hypotension (Chronic) Depression (Chronic) PVD (peripheral vascular disease) (Chronic) Hyperlipidemia (Chronic) Retinopathy (Chronic) Insomnia (Chronic) Neuropathy (Chronic) Blister of left heel (Chronic) Congestive heart failure (Chronic) Bilateral pleural effusion (Acute) Dilated cardiomyopathy (Chronic) Edema, leg (Acute) SOB (shortness of breath) (Acute) Wound dehiscence (Acute) Alyssa infection of genital region (Acute) Delayed surgical wound healing (Acute) Cellulitis and abscess of leg (Acute) Right BKA infection (Acute) Cellulitis of right anterior lower leg (Acute) Treatment (Acute) Amputation stump infection (Acute) Anemia (Acute) Epigastric abdominal pain (Acute) Dyspepsia (Acute) Cellulitis of left leg (Acute) UTI (urinary tract infection) (Acute) Pyelonephritis (Acute) SIRS (systemic inflammatory response syndrome) (Acute) Type 1 diabetes (Acute) Partial tear of left Achilles tendon (Acute) COPD exacerbation (Acute) Blister (nonthermal) of other specified part of neck, initial encounter (Chronic) Medical History (Updated 10/09/20 @ 11:43 by Raf Aguilar MD) Acute bronchitis due to respiratory syncytial virus (RSV) (Chronic) Amputation stump infection (Acute) Anemia (Acute) Bilateral pleural effusion (Acute) Blister of left heel (Chronic) Bruise (Chronic) Alyssa infection of genital region (Acute) Cardiomyopathy (Chronic) Cellulitis and abscess of leg (Acute) Cellulitis of right anterior lower leg (Acute) Clotting disorder (Chronic) Congestive heart failure (Chronic) COPD (chronic obstructive pulmonary disease) (Chronic) Delayed surgical wound healing (Acute) POST OP NOTE: Post operative pain controlled with Demorol. Dressings CDI. Will give Benadryl 25 to 50 mg PRN for insomnia. Ativan 0.5 to 1.0 mg PRN for anxiety. Elevation of right BKA stump and left leg over pillows. Reassess in AM. Depression (Chronic) Diabetic ulcer of left heel (Chronic) Diarrhea (Chronic) Dilated cardiomyopathy (Chronic) Dyspepsia (Acute) Dyspnea (Chronic) Edema, leg (Acute) Epigastric abdominal pain (Acute) Gangrene (Chronic) Hyperkalemia (Chronic) Hyperlipidemia (Chronic) Hypolipidemia (Chronic) Hypotension (Chronic) Hypoxia (Chronic) Insomnia (Chronic) Loss of sensation (Chronic) Neuropathy (Chronic) Obese (Chronic) Pneumonia (Chronic) PVD (peripheral vascular disease) (Chronic) Retinopathy (Chronic) Right BKA infection (Acute) RSV infection (Chronic) Sleep apnea (Chronic) SOB (shortness of breath) (Acute) Stomach ulcer (Chronic ~07/30/16) Stress incontinence (Chronic) Tingling (Chronic) Treatment (Acute) Type 1 diabetes mellitus with other specified complication (Chronic) Wears glasses (Chronic) Weight gain (Chronic) Wound dehiscence (Acute) Surgical History History of angioplasty (Chronic ~2015) Right Femoral Popliteal Distal Vein Graft Stenosis History of (Chronic) History of right below knee amputation (Chronic) History of surgery (Chronic) Anterior Tibial Artery Runoff (W 50% Proximal Stenosis 2015) Heart Cath/Coronaries (Right&Left) LV/IFR Pressure Wire-09/20/2016 (Pressures W Co/[place]) Achilles Tendon Lengthening Hx of CABG (Chronic) Status post angioplasty of vein (Chronic) Family History Mother Diabetes Brother Hypertriglyceridemia Father , 68 years old PE (pulmonary thromboembolism) Social History (Updated 03/11/19 @ 15:56 by Alan Chavez MD) occupational 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 smoking status: Never smoker alcohol intake frequency: does not drink substance use type: does not use MEDS/ALLERGIES Home Medications and Allergies Home Medications Medication Instructions Recorded Confirmed Type clopidogrel 75 mg PO DAILY 10/16/15 10/09/20 History metoprolol tartrate 25 mg PO BID 04/18/16 10/09/20 History sertraline 100 mg PO HS 04/18/16 10/09/20 History insulin pump cartridge 08/10/17 10/09/20 History atorvastatin 20 mg tablet 40 mg PO HS 11/26/18 10/09/20 History pregabalin 75 mg capsule 75 mg PO BID 11/26/18 10/09/20 History zaleplon 10 mg capsule 10 mg PO HS 11/26/18 10/09/20 History insulin lispro 100 unit/mL See Rx Instructions SUB-Q .COMPLEX 11/28/18 10/09/20 History subcutaneous solution furosemide 20 mg tablet See Rx Instructions .ROUTE 02/14/19 10/09/20 History .COMPLEX tab hydrocodone-acetaminophen 1 tab PO Q8H PRN 06/19/20 10/09/20 History Allergies Allergy/AdvReac Type Severity Reaction Status Date / Time adhesive Allergy Unknown Unknown Verified 10/09/20 08:58 sulfamethoxazole Allergy Unknown Verified 10/09/20 08:58 [From ] trimethoprim [From ] Allergy Unknown Verified 10/09/20 08:58 hydromorphone [Hydromorphone] AdvReac Mild Hallucinati Verified 10/09/20 08:45 ng Zolpidem [From Ambien] AdvReac Mild sleep Verified 10/09/20 08:45 walking and sleep eating EXAM Constitutional Vitals: Temp Pulse Resp BP Pulse Ox 97.7 F 50 L 16 152/61 98 10/09/20 08:45 10/09/20 13:42 10/09/20 08:45 10/09/20 13:42 10/09/20 13:42 Alert oriented but no anxiety Head normocephalic Oral cavity moist No ear nose discharge Eye movement symmetrical Neck supple no lymphadenopathy S1-S2 occasionally irregular Nonlabored breathing Nondistended nontender abdomen Right BKA, left fifth toe amputation stump surgical scar undermining/redness erythema and foul-smelling discharge Skin no suspicious lesion Psych no hallucination delusion Neuro normal higher function DATA Data Completed and Pending Labs: Labs from last 24 hours 10/09/20 10/09/20 10/09/20 09:50 09:30 09:30 WBC RBC Hgb Hct MCV MCH MCHC RDW Plt Count MPV Neut % (Auto) Lymph % (Auto) Graves % (Auto) Eos % (Auto) Baso % (Auto) Lymph # (Auto) Graves # (Auto) Eos # (Auto) Baso # (Auto) Absolute Neutrophils VBG Lactic Acid 1.0 Sodium 135 Potassium 3.9 Chloride 101 Carbon Dioxide 26 Anion Gap 8.0 BUN 44 H Creatinine 1.5 H GFR Calculation 37 Glucose 187 H Calcium 9.1 Total Bilirubin 0.3 AST 13 ALT 18 Alkaline Phosphatase 111 Total Protein 7.4 Albumin 3.5 Globulin 3.9 H Albumin/Globulin Ratio 0.9 L Urine Color Yellow Urine Appearance Clear Urine pH 5.0 Ur Specific [place] 1.013 Urine Protein Negative Urine Glucose (UA) Negative Urine Ketones Negative Urine Occult Blood 0.20 Urine Nitrate Pos A Urine Bilirubin Negative Urine Urobilinogen Negative Ur Leukocyte Esterase 25 A Urine RBC 2 H Urine WBC 21 H Ur Squamous Epith Cells 3 Urine Bacteria Few A Urine Mucus Few A Ur Culture Indicated? yes 10/09/20 09:30 WBC 12.3 H RBC 4.33 Hgb 11.9 L Hct 37.4 MCV 86.4 MCH 27.5 MCHC 31.8 RDW 14.5 Plt Count 416 MPV 11.2 H Neut % (Auto) 69.3 Lymph % (Auto) 21.5 [place] % (Auto) 6.4 Eos % (Auto) 2.1 Baso % (Auto) 0.7 Lymph # (Auto) 2.63 [place] # (Auto) 0.78 Eos # (Auto) 0.26 Baso # (Auto) 0.09 Absolute Neutrophils 8.50 H VBG Lactic Acid Sodium Potassium Chloride Carbon Dioxide Anion Gap BUN Creatinine GFR Calculation Glucose Calcium Total Bilirubin AST ALT Alkaline Phosphatase Total Protein Albumin Globulin Albumin/Globulin Ratio Urine Color Urine Appearance Urine pH Ur Specific [place] Urine Protein Urine Glucose (UA) Urine Ketones Urine Occult Blood Urine Nitrate Urine Bilirubin Urine Urobilinogen Ur Leukocyte Esterase Urine RBC Urine WBC Ur Squamous Epith Cells Urine Bacteria Urine Mucus Ur Culture Indicated? A/P Narrative A/P Narrative: * Diabetic left foot surgical wound infection/cellulitis/[facility]omyelitis on [facility]. Wound care consulted. Will undergo operative intervention in a.m. Keep n.p.o. after midnight. Start broad-spectrum antibiotics. Cultures * Complicated UTI-urine culture/antibiotic coverage * Insulin-dependent diabetes continue insulin pump/CC diet * History of CAD continue statin/Plavix/beta-keyla * Neuropathy continue Lyrica * Anxiety disorder continue sertraline * History of CKD stage III continue monitoring * Full code * Prophylax Heparin Plan * Inpatient admission * Wound care consult * Broad-spectrum antibiotic coverage including vancomycin and Zosyn * Pre-existing medical condition management home medications as above * PT OT/wound care * Discharge planning Time Spent With Patient Time: Total time spent is greater than 50% in coordination of care (as documented) at patient's floor/unit and/or counseling patient:
[2020-10-09] MEDS ORDERED: DEXTROSE 50% 50 ML VIAL IV PRN (14:40)
[2020-10-09] MEDS ORDERED: POLYETHYLENE GLYCOL 3350 17 GM PACKET PO PRN (14:40)
[2020-10-09] MEDS ORDERED: ONDANSETRON 4 MG/2 ML VIAL IV PRN (14:40)
[2020-10-09] MEDS ORDERED: MAGNESIUM SULFATE 2 GM/50 ML BAG IV PRN (14:40)
[2020-10-09] MEDS ORDERED: ACETAMINOPHEN 650 MG/65 ML BAG IV PRN (14:40)
[2020-10-09] MEDS ORDERED: ACETAMINOPHEN 325 MG TABLET PO PRN (14:40)
[2020-10-09] MEDS ORDERED: POTASSIUM CHLORIDE 20 MEQ PACKET PO PRN (14:40)
[2020-10-09] MEDS ORDERED: ONDANSETRON 4 MG ODT TABLET SL PRN (14:40)
[2020-10-09] MEDS ORDERED: POTASSIUM CHLORIDE 40 MEQ in DEXTROSE 5% IN WATER 500 ML IV PRN (14:40)
[2020-10-09] MEDS ORDERED: VANCOMYCIN PER PHARMACY IV SCH (14:40)
[2020-10-09] MEDS ORDERED: BISACODYL 10 MG SUPP.RECT PR PRN (14:40)
[2020-10-09] MEDS ORDERED: DEXTROSE 31 GM ORAL.SUSP PO PRN (14:40)
[2020-10-09] MEDS: 0.9 % SODIUM CHLORIDE 10 ML SYRINGE IV SCH ×2 (14:42→20:58)
[2020-10-09] MEDS: 0.9 % SODIUM CHLORIDE 1,000 ML IV SCH (14:56)
[2020-10-09] MEDS ORDERED: VANCOMYCIN 500 MG in 0.9 % SODIUM CHLORIDE 100 ML IV ONE (15:00)
--- NOTE | 2020-10-09 15:44 | General Surgery Consult Note ---
HPI Data of Consult Consult date: 10/09/20 Requesting physician: Bj Laurent Primary Care Provider: Traci Virgen Family Provider: Patient admitted via ER for SEPSIS, CSSSI of open post surgical wound of LEFT foot. Patient had missed f/u appointments at wound clinic. She was seen in clinic today and sent to ER for interval changes in her wound, with edema, erythema, foul odor and undermining of edges. Uncontrolled diabetes, sepsis and CSSSI needs surgical debridement in AM. Discussed with anesthesiologist Dr. Calzada. Consult Narrative cc:: CC: Bj Laurent [facility] PFS All Active Problems (Updated 10/09/20 @ 11:43 by Raf Aguilar MD) Angina pectoris, unspecified (Acute) Hyperglycemia due to type 1 diabetes mellitus (Acute) Status post aorto-coronary artery bypass graft (Acute) Coarse tremors (Acute) Contusion (Acute) Cellulitis of foot, left (Acute) Acute osteomyelitis of left foot (Acute) Hyperkalemia (Chronic) Diabetic ulcer of left heel (Chronic) Acute bronchitis due to respiratory syncytial virus (RSV) (Chronic) Type 1 diabetes mellitus with other specified complication (Chronic) Cardiomyopathy (Chronic) RSV infection (Chronic) Hypoxia (Chronic) Dyspnea (Chronic) Obese (Chronic) Loss of sensation (Chronic) Clotting disorder (Chronic) Bruise (Chronic) Stress incontinence (Chronic) Tingling (Chronic) Diarrhea (Chronic) Weight gain (Chronic) Sleep apnea (Chronic) Pneumonia (Chronic) Wears glasses (Chronic) COPD (chronic obstructive pulmonary disease) (Chronic) Stomach ulcer (Chronic ~07/30/16) Hypolipidemia (Chronic) Gangrene (Chronic) Hypotension (Chronic) Depression (Chronic) PVD (peripheral vascular disease) (Chronic) Hyperlipidemia (Chronic) Retinopathy (Chronic) Insomnia (Chronic) Neuropathy (Chronic) Blister of left heel (Chronic) Congestive heart failure (Chronic) Bilateral pleural effusion (Acute) Dilated cardiomyopathy (Chronic) Edema, leg (Acute) SOB (shortness of breath) (Acute) Wound dehiscence (Acute) Alyssa infection of genital region (Acute) Delayed surgical wound healing (Acute) Cellulitis and abscess of leg (Acute) Right BKA infection (Acute) Cellulitis of right anterior lower leg (Acute) Treatment (Acute) Amputation stump infection (Acute) Anemia (Acute) Epigastric abdominal pain (Acute) Dyspepsia (Acute) Cellulitis of left leg (Acute) UTI (urinary tract infection) (Acute) Pyelonephritis (Acute) SIRS (systemic inflammatory response syndrome) (Acute) Type 1 diabetes (Acute) Partial tear of left Achilles tendon (Acute) COPD exacerbation (Acute) Blister (nonthermal) of other specified part of neck, initial encounter (Chronic) Medical History (Updated 10/09/20 @ 11:43 by Raf Aguilar MD) Acute bronchitis due to respiratory syncytial virus (RSV) (Chronic) Amputation stump infection (Acute) Anemia (Acute) Bilateral pleural effusion (Acute) Blister of left heel (Chronic) Bruise (Chronic) Alyssa infection of genital region (Acute) Cardiomyopathy (Chronic) Cellulitis and abscess of leg (Acute) Cellulitis of right anterior lower leg (Acute) Clotting disorder (Chronic) Congestive heart failure (Chronic) COPD (chronic obstructive pulmonary disease) (Chronic) Delayed surgical wound healing (Acute) POST OP NOTE: Post operative pain controlled with Demorol. Dressings CDI. Will give Benadryl 25 to 50 mg PRN for insomnia. Ativan 0.5 to 1.0 mg PRN for anxiety. Elevation of right BKA stump and left leg over pillows. Reassess in AM. Depression (Chronic) Diabetic ulcer of left heel (Chronic) Diarrhea (Chronic) Dilated cardiomyopathy (Chronic) Dyspepsia (Acute) Dyspnea (Chronic) Edema, leg (Acute) Epigastric abdominal pain (Acute) Gangrene (Chronic) Hyperkalemia (Chronic) Hyperlipidemia (Chronic) Hypolipidemia (Chronic) Hypotension (Chronic) Hypoxia (Chronic) Insomnia (Chronic) Loss of sensation (Chronic) Neuropathy (Chronic) Obese (Chronic) Pneumonia (Chronic) PVD (peripheral vascular disease) (Chronic) Retinopathy (Chronic) Right BKA infection (Acute) RSV infection (Chronic) Sleep apnea (Chronic) SOB (shortness of breath) (Acute) Stomach ulcer (Chronic ~07/30/16) Stress incontinence (Chronic) Tingling (Chronic) Treatment (Acute) Type 1 diabetes mellitus with other specified complication (Chronic) Wears glasses (Chronic) Weight gain (Chronic) Wound dehiscence (Acute) Surgical History History of angioplasty (Chronic ~2015) Right Femoral Popliteal Distal Vein Graft Stenosis History of (Chronic) History of right below knee amputation (Chronic) History of surgery (Chronic) Anterior Tibial Artery Runoff (W 50% Proximal Stenosis 2016) Heart Cath/Coronaries (Right&Left) LV/IFR Pressure Wire-09/20/2016 (Pressures W Co/[place]) Achilles Tendon Lengthening Hx of CABG (Chronic) Status post angioplasty of vein (Chronic) Family History Mother Diabetes Brother Hypertriglyceridemia Father , 68 years old PE (pulmonary thromboembolism) Social History (Updated 03/11/19 @ 15:56 by Alan Chavez MD) occupational status: employed occupation: [employer] smoking status: Former smoker alcohol intake frequency: does not drink substance use type: does not use MEDS/ALLERGIES Home Medications and Allergies Home Medications Medication Instructions Recorded Confirmed Type clopidogrel 75 mg PO DAILY 10/16/15 10/09/20 History metoprolol tartrate 25 mg PO BID 04/18/16 10/09/20 History sertraline 100 mg PO HS 04/18/16 10/09/20 History insulin pump cartridge 08/10/17 10/09/20 History atorvastatin 20 mg tablet 40 mg PO HS 11/26/18 10/09/20 History pregabalin 75 mg capsule 75 mg PO BID 11/26/18 10/09/20 History zaleplon 10 mg capsule 10 mg PO HS 11/26/18 10/09/20 History insulin lispro 100 unit/mL See Rx Instructions SUB-Q .COMPLEX 11/28/18 10/09/20 History subcutaneous solution furosemide 20 mg tablet See Rx Instructions .ROUTE 02/14/19 10/09/20 History .COMPLEX tab hydrocodone-acetaminophen 1 tab PO Q8H PRN 06/19/20 10/09/20 History Allergies Allergy/AdvReac Type Severity Reaction Status Date / Time adhesive Allergy Unknown Unknown Verified 10/09/20 08:58 sulfamethoxazole Allergy Unknown Verified 10/09/20 08:58 [From ] trimethoprim [From ] Allergy Unknown Verified 10/09/20 08:58 hydromorphone [Hydromorphone] AdvReac Mild Hallucinati Verified 10/09/20 08:45 ng Zolpidem [From Ambien] AdvReac Mild sleep Verified 10/09/20 08:45 walking and sleep eating Physical Examination Vital Signs Vital signs: Temp Pulse Resp BP Pulse Ox 97.6 F 57 L 18 168/67 97 10/09/20 14:40 10/09/20 14:40 10/09/20 14:40 10/09/20 14:40 10/09/20 14:40 General physical appearance General physical exam: well developed, well nourished, no distress and no pain Eyes Eye exam: PERRL and normal ocular movement ENT ENT exam: normal pinna, normal nares, normal mucosa and no congestion Head Head exam IM: Present atraumatic and normocephalic Neck Neck exam: no masses, trachea midline and no venous distension Cardiovascular Cardiovascular exam IM: Present normal rate and rhythm Peripheral pulses: 0: dorsalis pedis (R) (RIGHT BKA in past.) and 1+: dorsalis pedis (L) (Diminished pulse h/o PAD. ) Respiratory Respiratory exam: normal expansion and clear to auscultation Abdomen Abdomen: Present soft, non tender and bowel sounds Integumentary Integumentary: Present other (CSSSI LEFT foot, Erythema, edema, odor, necrotic nedon and undermining of skin edges at wound base. NO crepitus. ) Neurologic Neurologic: Present other (Diabetes peripheral neuropathy. Other harris no acute focal neurological findings. ) Musculoskeletal Musculoskeletal: Present other (Right BKA. Uses prosthesis . ) Psychiatric Psychiatric: Present oriented to time, oriented to person, oriented to place, speech is normal and memory intact Results Labs Result diagrams: 10/09/20 09:30 10/09/20 09:30 Labs: Abnormal lab results 10/09/20 10/09/20 10/09/20 Range/Units 09:30 09:30 09:50 WBC 12.3 H (4.5-11.0) K/mcL Hgb 11.9 L (12.0-15.0) g/dL MPV 11.2 H (7.4-10.4) fL Absolute Neutrophils 8.50 H (1.80-8.00) K/mcL BUN 44 H (6-20) mg/dL Creatinine 1.5 H (0.6-1.1) mg/dL Glucose 187 H (70-105) mg/dL Globulin 3.9 H (2.2-3.7) gm/dL Albumin/Globulin Ratio 0.9 L (1.0-2.3) Urine Nitrate Pos A (Negative) Ur Leukocyte Esterase 25 A (Negative) /ug Urine RBC 2 H (0-1) /hpf Urine WBC 21 H (0-4) /hpf Urine Bacteria Few A (0) /hpf Urine Mucus Few A (None) /hpf Diabetes panel 10/09/20 Range/Units 09:30 Sodium 135 (133-145) mmol/L Potassium 3.9 (3.3-5.1) mmol/L Chloride 101 (96-108) mmol/L Carbon Dioxide 26 (22-30) mmol/L BUN 44 H (6-20) mg/dL Creatinine 1.5 H (0.6-1.1) mg/dL Glucose 187 H (70-105) mg/dL Calcium 9.1 (8.6-10.4) mg/dL AST 13 (<32) U/L ALT 18 (<40) U/L Alkaline Phosphatase 111 (39-117) U/L Total Protein 7.4 (5.9-8.4) gm/dL Albumin 3.5 (3.2-5.2) gm/dL Calcium panel 10/09/20 Range/Units 09:30 Calcium 9.1 (8.6-10.4) mg/dL Albumin 3.5 (3.2-5.2) gm/dL Pituitary panel 10/09/20 Range/Units 09:30 Sodium 135 (133-145) mmol/L Potassium 3.9 (3.3-5.1) mmol/L Chloride 101 (96-108) mmol/L Carbon Dioxide 26 (22-30) mmol/L BUN 44 H (6-20) mg/dL Creatinine 1.5 H (0.6-1.1) mg/dL Glucose 187 H (70-105) mg/dL Calcium 9.1 (8.6-10.4) mg/dL Adrenal panel 10/09/20 Range/Units 09:30 Sodium 135 (133-145) mmol/L Potassium 3.9 (3.3-5.1) mmol/L Chloride 101 (96-108) mmol/L Carbon Dioxide 26 (22-30) mmol/L BUN 44 H (6-20) mg/dL Creatinine 1.5 H (0.6-1.1) mg/dL Glucose 187 H (70-105) mg/dL Calcium 9.1 (8.6-10.4) mg/dL Total Bilirubin 0.3 (0.1-1.0) mg/dL AST 13 (<32) U/L ALT 18 (<40) U/L Alkaline Phosphatase 111 (39-117) U/L Total Protein 7.4 (5.9-8.4) gm/dL Albumin 3.5 (3.2-5.2) gm/dL All other labs normal. A/P Narrative A/P Narrative: Assessment: SEPSIS. CSSSI Left foot Infected LEFT foot DFU Stage 4 probes to underlying bone. Plan: IV antibiotics. NPO after MN For OR Debridement of LEFT foot, pulse lavage, tissue biopsies and cultures. Soft tissue and bone and open packing. Time Spent With Patient Time: Total time spent is greater than 50% in coordination of care (as documented) at patient's floor/unit and/or counseling patient: Total time spent with greater than 50% in coordination of care (as documented) at patient's floor/unit and/or counseling patient:: Greater than 35 minutes
[2020-10-09] MEDS: PIPERACILLIN SODIUM/TAZOBACTAM 3.375 GM in DEXTROSE 5% IN WATER 50 ML IV SCH ×3 (15:52→23:50)
[2020-10-09] MEDS ORDERED: PATIENTS OWN MEDICATION 1 DOSE MISCELL SUB-Q SCH (16:00)
[2020-10-09] MEDS: INSULIN LISPRO 1 UNIT/0.01 ML UNIT SQ SCH ×2 (17:13→20:55)
[2020-10-09] MEDS ORDERED: HYDROCODONE/APAP 7.5/325MG TABLET PO PRN (17:21)
[2020-10-09] MEDS ORDERED: INSULIN LISPRO 1 UNIT/0.01 ML UNIT SQ SCH (17:30)
[2020-10-09] MEDS: SERTRALINE 100 MG TABLET PO SCH (20:55)
[2020-10-09] MEDS: DOCUSATE SODIUM 100 MG CAPSULE PO SCH (20:55)
[2020-10-09] MEDS: PREGABALIN 75 MG CAPSULE PO SCH (20:55)
[2020-10-09] MEDS: ATORVASTATIN 20 MG TABLET PO SCH (20:55)
[2020-10-09] MEDS: HYDROcodone/APAP 5/325MG TABLET PO PRN (20:56)
[2020-10-09] MEDS: HEPARIN 5,000 UNIT/ML VIAL SQ SCH (20:56)
[2020-10-09] MEDS: FUROSEMIDE 20 MG TABLET PO SCH (20:56)
[2020-10-09] MEDS: METOPROLOL TARTRATE 25 MG TABLET PO SCH (20:56)
[2020-10-09] MEDS: SENNOSIDES/DOCUSATE SODIUM 1 TAB TABLET PO SCH (20:57)
[2020-10-09] MEDS ORDERED: ZALEPLON 10 MG PO SCH (21:00)
[2020-10-09] MEDS ORDERED: MELATONIN 3 MG TABLET PO PRN (21:00)
[2020-10-10] MEDS: 0.9 % SODIUM CHLORIDE 10 ML SYRINGE IV SCH ×3 (05:52→20:37)
[2020-10-10] MEDS: PIPERACILLIN SODIUM/TAZOBACTAM 3.375 GM in DEXTROSE 5% IN WATER 50 ML IV SCH ×4 (05:52→23:49)
[2020-10-10 07:13] LABS: Basophils # (Auto) 0.07 K/mcL (0.00-0.20); Basophils % (Auto) 0.7 % (0.0-2.0); Eosinophils # (Auto) 0.27 K/mcL (0.00-0.70); Eosinophils % (Auto) 2.6 % (0.0-7.0); Hematocrit 35.8 % (36.0-48.0); Hemoglobin 10.9 g/dL (12.0-15.0); Lymphocytes # (Auto) 2.34 K/mcL (1.50-4.80); Lymphocytes % (Auto) 22.4 % (15.0-49.0); Mean Cell Volume 90.4 fL (80.0-100.0); Mean Corpuscular HGB Conc 30.4 g/dL (31.0-36.0); Monocytes # (Auto) 0.79 K/mcL (0.10-0.90); Monocytes % (Auto) 7.6 % (1.0-12.0); Neutrophils % (Auto) 66.7 % (38.0-78.0); Platelet Count 342 K/mcL (140-440); RBC 3.96 M/mcL (4.00-5.20); Red Cell Distribution Width 14.8 % (11.5-14.5); WBC 10.4 K/mcL (4.5-11.0)
[2020-10-10] MEDS: DOCUSATE SODIUM 100 MG CAPSULE PO SCH ×2 (07:22→20:35)
[2020-10-10] MEDS: HEPARIN 5,000 UNIT/ML VIAL SQ SCH ×2 (07:23→20:36)
[2020-10-10 07:34] LABS: ALT/SGPT 15 U/L (<40); AST/SGOT 14 U/L (<32); Albumin 3.4 gm/dL (3.2-5.2); Albumin/Globulin Ratio 1.1 (1.0-2.3); Alkaline Phosphatase 89 U/L (39-117); Bilirubin,Direct < 0.2 mg/dL (<0.3); Bilirubin,Total 0.2 mg/dL (0.1-1.0); Blood Urea Nitrogen 33 mg/dL (6-20); Calcium 8.6 mg/dL (8.6-10.4); Carbon Dioxide 24 mmol/L (22-30); Chloride 105 mmol/L (96-108); Globulin 3.2 gm/dL (2.2-3.7); Glomerular Filtration Rate 35; Glucose 94 mg/dL (70-105); Lactate Dehydrogenase 164 U/L (135-225); Phosphorous 3.8 mg/dL (2.5-4.5); Triglycerides 91 mg/dL (<150); Uric Acid 7.5 mg/dL (2.5-8.0)
[2020-10-10] MEDS: INSULIN LISPRO 1 UNIT/0.01 ML UNIT SQ SCH ×4 (07:36→20:35)
[2020-10-10] MEDS: METOPROLOL TARTRATE 25 MG TABLET PO SCH ×2 (08:39→20:36)
[2020-10-10] MEDS: MULTIVIT,THER IRON,CA,FA & MIN 1 TABLET PO SCH (08:39)
[2020-10-10] MEDS: PREGABALIN 75 MG CAPSULE PO SCH ×2 (08:39→20:36)
[2020-10-10] MEDS: FUROSEMIDE 40 MG TABLET PO SCH (08:40)
[2020-10-10] MEDS ORDERED: sitaGLIPtin 100 MG TABLET PO SCH (09:00)
[2020-10-10 09:05] LABS: Erythrocyte Sedimentation Rate 44 mm/hr (0-20)
--- NOTE | 2020-10-10 09:44 | Internal Med Progress Note ---
SUBJECTIVE Subjective Patient information: Note initiated : 10/10/20 at 9:41 am Service Date, if different from initiated Date: [] Patient: Mai Colon 60 y/o F admitted on 10/09/20 for Lt Foot Infection. Chief Complaint: History of present illness: Ms. Colon is a 60 year old F known IDDM since age 16 on insulin pump/history of CAD/CKD stage III/HTN/prior right BKA/neuropathy and chronic pain who presents to the ER with 5-day onset of worsening left foot Postsurgical wound infection. Apparently patient missed her follow-up appointments around [facility]. She was seen at the wound clinic for evaluation and was found to have malodorous discharge along with swelling redness involving left foot fifth toe amputation stump surgical site undermining edges. Patient denied associated fever, chills or worsening pain. She was evaluated in the ER initial work-up was consistent with elevated white count 12.3/pyuria and imaging sensitive of osteomyelitis. Wound care recommend admission for operative intervention. Subsequently hospitalist service was consulted At the time of my evaluation patient is accompanied with her . She was able to answer most of the questions. Denies fever, chills, recurrent MRSA or staph infection. She further denies dysuria, diarrhea, poor blood sugar control. Her normal blood sugars ranges between 100-1 60s. She is currently on insulin pump and does carb counting. 10/10 patient currently n.p.o. awaiting surgery this afternoon. Managed by wound care. On antibiotic coverage. No overnight fever chills. White count 10.4, creatinine at baseline at 1.6. Urine culture gram-negative bacilli. Reviewed postoperatively. Constitutional Vitals: Vital Signs Temp Pulse Resp BP Pulse Ox 97.5 F 50 L 18 119/60 93 10/10/20 07:00 10/10/20 08:00 10/10/20 08:00 10/10/20 07:00 10/10/20 08:00 Period Temp Pulse Resp BP Sys/Zamora Pulse Ox Last 24 Hr 97.5 F-98.5 F 46-97 16-18 102-168/57-87 93-100 Intake and Output 10/09/20 10/10/20 10/10/20 21:59 05:59 13:59 Intake Total 200 850 50 Output Total 250 100 Balance 200 600 -50 Weight 96.729 kg alert oriented No anxiety Left foot dressing Right BKA Intake & Output: Intake & Output 10/09/20 10/10/20 10/10/20 21:59 05:59 13:59 Intake Total 200 850 50 Output Total 250 100 Balance 200 600 -50 Weight 96.729 kg Intake: IV 200 50 50 Zosyn 3.375 gm In Dextrose 5% 100 50 50 in Water 50 ml @ 100 mls/hr IV Q6H [facility] Rx#:[id number] Vancomycin 500 mg In Sodium 100 Chloride 0.9% 100 ml @ 100 mls/ hr IV ONCE ONE Rx#:[id number] Oral 0 800 Output: Void Amount 250 100 Other: Urine Appearance Clear Clear Urine Color Bright Yellow Dark Yellow Urine Odor Normal Stool Size Small Stool Color Brown Stool Consistency Liquid # Voids 1 # Bowel Movements 1 OBJ DATA Labs CBC & Chem 7: 10/10/20 06:17 10/10/20 06:17 Labs: Abnormal Lab Results 10/10/20 10/10/20 10/09/20 06:17 06:17 09:50 WBC RBC 3.96 L Hgb 10.9 L Hct 35.8 L MCHC 30.4 L RDW 14.8 H MPV 11.0 H Absolute Neutrophils ESR 44 H BUN 33 H Creatinine 1.6 H Glucose C-Reactive Protein 1.50 H Globulin Albumin/Globulin Ratio Urine Nitrate Pos A Ur Leukocyte Esterase 25 A Urine RBC 2 H Urine WBC 21 H Urine Bacteria Few A Urine Mucus Few A 10/09/20 10/09/20 09:30 09:30 WBC 12.3 H RBC Hgb 11.9 L Hct MCHC RDW MPV 11.2 H Absolute Neutrophils 8.50 H ESR BUN 44 H Creatinine 1.5 H Glucose 187 H C-Reactive Protein Globulin 3.9 H Albumin/Globulin Ratio 0.9 L Urine Nitrate Ur Leukocyte Esterase Urine RBC Urine WBC Urine Bacteria Urine Mucus Meds: Medications Acetaminophen (Tylenol) 650 mg PO Q4-6HP PRN; Protocol PRN Reason: Per Pain Protocol/Fever > 101 Hydrocodone Bitart/Acetaminophen (Mckinney 5/325mg) 1 - 2 tab PO Q4HP PRN; Protocol PRN Reason: Per Pain Protocol Last Admin: 10/09/20 20:56 Dose: 2 tab Documented by: Albuterol/Ipratropium (Duoneb) 3 ml NEB ONCE PRN PRN Reason: Shortness Of Breath Stop: 10/10/20 18:00 Atorvastatin Calcium (Lipitor) 40 mg PO HS [facility] Last Admin: 10/09/20 20:55 Dose: 40 mg Documented by: Bisacodyl (Dulcolax) 10 mg KS Q2-3DAYS PRN PRN Reason: Constipation Dextrose (Dextrose 50%) 0 ml IV UD PRN PRN Reason: Hypoglycemia Diagnostic Test (Pha) (Accu-Chek) 1 each FS ACHS [facility] Last Admin: 10/10/20 07:33 Dose: 1 each Documented by: Docusate Sodium (Colace) 100 mg PO BID [facility] Last Admin: 10/10/20 07:22 Dose: Not Given Documented by: Furosemide (Lasix) 20 mg PO HS [facility] Last Admin: 10/09/20 20:56 Dose: 20 mg Documented by: Furosemide (Lasix) 40 mg PO DAILY [facility] Last Admin: 10/10/20 08:40 Dose: 40 mg Documented by: Glucose (Insta-Glucose) 15 gm PO PRN PRN PRN Reason: Hypoglycemia Heparin Sodium (Porcine) (Heparin) 5,000 unit SQ Q12 [facility] Last Admin: 10/10/20 07:23 Dose: Not Given Documented by: Potassium Chloride 40 meq/ (Dextrose) 520 mls @ 130 mls/hr IV UD PRN PRN Reason: K+ = or < 3.5 Acetaminophen (Ofirmev) 650 mg in 65 mls @ 130 mls/hr IV Q6HP PRN; Protocol PRN Reason: Per Pain Protocol/Fever > 101 Magnesium Sulfate (Magnesium Sulfate) 2 gm in 50 mls @ 50 mls/hr IV UD PRN PRN Reason: MG = or < 1.7 Sodium Chloride (Sodium Chloride 0.9%) 1,000 mls @ 50 mls/hr IV .Q20H [facility] Stop: 10/12/20 02:39 Last Admin: 10/09/20 14:56 Dose: 50 mls/hr Documented by: Piperacillin Sod/Tazobactam (Sod 3.375 gm/ Dextrose) 50 mls @ 100 mls/hr IV Q6H [facility]; Protocol Last Infusion: 10/10/20 06:22 Dose: Infused Documented by: Vancomycin HCl 1,500 mg/ (Sodium Chloride) 500 mls @ 333.3 mls/hr IV DAILY [facility] Insulin Human Lispro (Humalog) 0 unit SQ ACHS [facility]; Protocol Last Admin: 10/10/20 07:36 Dose: Not Given Documented by: Iron Carb/Multivit/Wet Pan Mixer/Folic Acid (Multivitamin W/Minerals) 1 tab PO DAILY [facility] Last Admin: 10/10/20 08:39 Dose: 1 tab Documented by: Melatonin (Melatonin 3mg Tablet) 3 mg PO HSP PRN PRN Reason: Insomnia Metoprolol Tartrate (Lopressor) 25 mg PO BID [facility] Last Admin: 10/10/20 08:39 Dose: 25 mg Documented by: Ondansetron HCl (Zofran Odt) 4 mg SL Q4-6HP PRN; Protocol PRN Reason: Nausea And Vomiting Ondansetron HCl (Zofran) 4 mg IV Q4-6HP PRN; Protocol PRN Reason: Nausea And Vomiting Insulin Pump 0 dose SUB-Q CONT [facility] Polyethylene Glycol (Miralax) 17 gm PO DAILYP PRN PRN Reason: Constipation Potassium Chloride (Klor-Con) 40 meq PO DAILYP PRN PRN Reason: K+ < 3.5 Pregabalin (Lyrica) 75 mg PO BID [facility] Last Admin: 10/10/20 08:39 Dose: 75 mg Documented by: Scopolamine (Transderm-Scop) 1 patch TOPICAL PREOP PRN PRN Reason: Nausea And Vomiting Stop: 10/10/20 18:00 Senna/Docusate Sodium (Senna Plus Tablet) 1 tab PO [facility] Last Admin: 10/09/20 20:57 Dose: Not Given Documented by: Sertraline HCl (Zoloft) 100 mg PO [facility] Last Admin: 10/09/20 20:55 Dose: 100 mg Documented by: Sodium Chloride (Saline Flush) 10 ml IV Q8 [facility] Last Admin: 10/10/20 05:52 Dose: Not Given Documented by: Vancomycin HCl (Vancomycin Per Pharmacy) 1 order IV UD [facility]; Protocol Zolpidem Tartrate (Ambien) 10 mg PO [facility] A/P Narrative A/P Narrative: * Diabetic left foot surgical wound infection/cellulitis/osteomyelitis on imaging. Will undergo operative intervention this afternoon. Currently n.p.o. Continue broad antibiotic coverage. Will de-escalate based on intraoperative cultures. ID consulted by wound care. * Complicated GNR UTI-on empiric antibiotic coverage. De-escalate based on urine culture results * Insulin-dependent diabetes continue insulin pump/CC diet * History of CAD continue statin/Plavix/beta-keyla * Neuropathy continue Lyrica * Anxiety disorder continue sertraline * History of CKD stage III continue monitoring * Full code * Prophylax Heparin Plan * Review postoperatively * Keep n.p.o. * Continue antibiotic coverage including vancomycin and Zosyn * Pre-existing medical condition management home medications as above * PT OT/wound care * Discharge planning per wound care/case management Time Spent With Patient Time: Total time spent is greater than 50% in coordination of care (as documented) at patient's floor/unit and/or counseling patient: QUALITY VTE Deep Vein Thrombosis/Pulmonary Embolism Present on Admission: No
[2020-10-10] MEDS: VANCOMYCIN 1,500 MG in 0.9 % SODIUM CHLORIDE 500 ML IV SCH (10:14)
[2020-10-10] MEDS: 0.9 % SODIUM CHLORIDE 1,000 ML IV SCH ×2 (10:14→15:14)
[2020-10-10] MEDS ORDERED: IPRATROPIUM/ALBUTEROL 3 ML AMPUL.NEB NEB PRN ×2 (11:00→13:19)
[2020-10-10] MEDS ORDERED: SCOPOLAMINE 1 PATCH PATCH TOPICAL PRN (11:00)
[2020-10-10] MEDS ORDERED: BACITRACIN IRR ONE (12:45)
[2020-10-10] MEDS ORDERED: GENTAMICIN SULFATE IRR ONE (12:45)
[2020-10-10] MEDS ORDERED: CLINDAMYCIN IRR ONE (12:45)
[2020-10-10] MEDS ORDERED: [UNRECOGNIZED DRUG - OTHER] IRR ONE (12:45)
[2020-10-10] MEDS ORDERED: METHOCARBAMOL 1,000 MG/10 ML VIAL IV PRN (13:19)
[2020-10-10] MEDS ORDERED: MEPERIDINE 25 MG/ML SYRINGE IV PRN (13:19)
[2020-10-10] MEDS ORDERED: ONDANSETRON 4 MG/2 ML VIAL IV PRN (13:19)
[2020-10-10] MEDS ORDERED: fentaNYL 100 MCG/2 ML VIAL IV PRN (13:19)
[2020-10-10] MEDS ORDERED: DOXAPRAM HCL 20 MG/ML IV ONE (13:29)
[2020-10-10] MEDS ORDERED: DEXAMETHASONE 10 MG/ML VIAL ONE (13:29)
[2020-10-10] MEDS ORDERED: ePHEDrine 50 MG/ML AMPUL IV ONE (13:29)
[2020-10-10] MEDS ORDERED: BUPRENORPHINE HCL 0.3 MG/ML ML ONE (13:29)
[2020-10-10] MEDS ORDERED: KETAMINE HCL 50 MG/ML ML ONE (13:29)
[2020-10-10] MEDS ORDERED: LIDOCAINE HCL/PF 100 MG/5 ML SYRINGE IV ONE (13:29)
[2020-10-10] MEDS ORDERED: fentaNYL 100 MCG/2 ML VIAL IV ONE (13:29)
[2020-10-10] MEDS ORDERED: PROPOFOL 200 MG/20 ML VIAL IV ONE (13:29)
[2020-10-10] MEDS ORDERED: MIDAZOLAM HCL 2 MG/ML ORAL.SOL PO ONE (13:29)
[2020-10-10] MEDS ORDERED: ONDANSETRON 4 MG/2 ML VIAL ONE (13:29)
[2020-10-10] MEDS ORDERED: GLYCOPYRROLATE 0.2 MG/ML VIAL IV ONE (13:29)
[2020-10-10] MEDS ORDERED: LACTATED RINGERS 1,000 ML IV SCH (13:30)
--- NOTE | 2020-10-10 14:07 | Brief Operative Note ---
Brief Operative Note Date of procedure: 10/10/20 Pre-op diagnosis: SEPSIS DFU Stage 4 Depth to bone and soft tissue LEFT foot Post-op diagnosis: same Procedure: Excision debridement, pulse lavage irrigation, soft tissue and bone biopsies and cultures. Open packing. Grafts/Implants: No Anesthesia: GLMA Findings: Post surgical wound with soft tissue and ?? bone necrosis LEFT anterior / lateral foot. FINAL Dimensions 7 x 4 x 3 CM Undermining at 12 O,clock for 2 CM Complications: none Surgeon: Bart Knutson Estimated blood loss (cc): 20 Specimens Removed/Pathology: other (BONE and soft tissue for histology AND c/s.) Condition: stable Disposition: PACU
[2020-10-10] MEDS: FUROSEMIDE 20 MG TABLET PO SCH (20:36)
[2020-10-10] MEDS: ATORVASTATIN 20 MG TABLET PO SCH (20:36)
[2020-10-10] MEDS: SERTRALINE 100 MG TABLET PO SCH (20:36)
[2020-10-10] MEDS: SENNOSIDES/DOCUSATE SODIUM 1 TAB TABLET PO SCH (20:37)
[2020-10-10] MEDS: HYDROcodone/APAP 5/325MG TABLET PO PRN (22:00)
[2020-10-10] MEDS: ZOLPIDEM 5 MG TABLET PO SCH (22:58)
[2020-10-11] MEDS: HYDROcodone/APAP 5/325MG TABLET PO PRN ×4 (02:58→19:37)
[2020-10-11] MEDS: 0.9 % SODIUM CHLORIDE 10 ML SYRINGE IV SCH ×3 (05:38→20:43)
[2020-10-11] MEDS: PIPERACILLIN SODIUM/TAZOBACTAM 3.375 GM in DEXTROSE 5% IN WATER 50 ML IV SCH ×3 (06:08→17:18)
[2020-10-11] MEDS: 0.9 % SODIUM CHLORIDE 1,000 ML IV SCH (06:20)
[2020-10-11 06:57] LABS: Basophils # (Auto) 0.02 K/mcL (0.00-0.20); Basophils % (Auto) 0.2 % (0.0-2.0); Eosinophils # (Auto) 0 K/mcL (0.00-0.70); Eosinophils % (Auto) 0 % (0.0-7.0); Hematocrit 33.3 % (36.0-48.0); Hemoglobin 10.5 g/dL (12.0-15.0); Lymphocytes # (Auto) 0.88 K/mcL (1.50-4.80); Lymphocytes % (Auto) 9.1 % (15.0-49.0); Mean Cell Volume 87.9 fL (80.0-100.0); Mean Corpuscular HGB Conc 31.5 g/dL (31.0-36.0); Mean Platelet Volume 11.4 fL (7.4-10.4); Monocytes # (Auto) 0.29 K/mcL (0.10-0.90); Neutrophils % (Auto) 87.7 % (38.0-78.0); Platelet Count 315 K/mcL (140-440); RBC 3.79 M/mcL (4.00-5.20); Red Cell Distribution Width 15.1 % (11.5-14.5); WBC 9.7 K/mcL (4.5-11.0)
[2020-10-11] MEDS: INSULIN LISPRO 1 UNIT/0.01 ML UNIT SQ SCH ×4 (07:23→20:57)
[2020-10-11 07:51] LABS: ALT/SGPT 12 U/L (<40); AST/SGOT 10 U/L (<32); Albumin 3.2 gm/dL (3.2-5.2); Albumin/Globulin Ratio 0.9 (1.0-2.3); Alkaline Phosphatase 82 U/L (39-117); Bilirubin,Direct < 0.2 mg/dL (<0.3); Bilirubin,Total 0.2 mg/dL (0.1-1.0); Blood Urea Nitrogen 32 mg/dL (6-20); Calcium 8.5 mg/dL (8.6-10.4); Carbon Dioxide 23 mmol/L (22-30); Chloride 105 mmol/L (96-108); Globulin 3.4 gm/dL (2.2-3.7); Glomerular Filtration Rate 32; Glucose 283 mg/dL (70-105); Lactate Dehydrogenase 151 U/L (135-225); Phosphorous 4.3 mg/dL (2.5-4.5); Triglycerides 73 mg/dL (<150); Uric Acid 6.9 mg/dL (2.5-8.0)
[2020-10-11] MEDS: METOPROLOL TARTRATE 25 MG TABLET PO SCH ×2 (08:10→20:45)
[2020-10-11] MEDS: MULTIVIT,THER IRON,CA,FA & MIN 1 TABLET PO SCH (08:10)
[2020-10-11] MEDS: PREGABALIN 75 MG CAPSULE PO SCH ×2 (08:10→20:43)
[2020-10-11] MEDS: FUROSEMIDE 40 MG TABLET PO SCH (08:10)
[2020-10-11] MEDS: HEPARIN 5,000 UNIT/ML VIAL SQ SCH ×2 (08:11→20:44)
[2020-10-11] MEDS: DOCUSATE SODIUM 100 MG CAPSULE PO SCH ×3 (08:11→21:06)
--- NOTE | 2020-10-11 08:15 | XRay Report ---
INDICATION: Interval Change TECHNIQUE: AP portable upright chest x-ray COMPARISON: Previous examinations dated 10/09/2020, 06/19/2020 FINDINGS:Previous median sternotomy and coronary artery bypass procedure. There has been mild migration of a fragment of sternotomy wire in the soft tissues of the right hemithorax Lungs:No parenchymal consolidation. No discrete mass. There are linear densities at both lung bases most consistent with atelectasis. Heart, vascular:There is moderate cardiomegaly, unchanged. Pulmonary vascularity is prominent consistent with pulmonary congestion. Mediastinum, nilay:No mediastinal widening. No hilar mass Pleura:No pleural fluid. No pleural-based mass or calcification Skeletal:Negative. IMPRESSION: 1. Mild cardiomegaly. Prominent vascularity consistent with pulmonary congestion 2. Linear densities at both lung bases consistent with atelectasis Interpreted and Authenticated by: Christian Flynn 10/11/20
[2020-10-11] MEDS: VANCOMYCIN 1,500 MG in 0.9 % SODIUM CHLORIDE 500 ML IV SCH (09:08)
--- NOTE | 2020-10-11 09:57 | Internal Med Progress Note ---
SUBJECTIVE Subjective Patient information: Note initiated : 10/11/20 at 9:54 am Service Date, if different from initiated Date: [] Patient: Mai Colon a 60 y/o F admitted on 10/09/20 for Lt Foot Infection. Chief Complaint: [] Interval history: History of present illness: Ms. Colon is a 60 year old F known IDDM since age 16 on insulin pump/history of CAD/CKD stage III/HTN/prior right BKA/neuropathy and chronic pain who presents to the ER with 5-day onset of worsening left foot Postsurgical wound infection. Apparently patient missed her follow-up appointments around . She was seen at the wound clinic for evaluation and was found to have malodorous discharge along with swelling redness involving left foot fifth toe amputation stump surgical site undermining edges. Patient denied associated fever, chills or worsening pain. She was evaluated in the ER initial work-up was consistent with elevated white count 12.3/pyuria and imaging sensitive of osteomyelitis. Wound care recommend admission for operative intervention. Subsequently hospitalist service was consulted At the time of my evaluation patient is accompanied with her . She was able to answer most of the questions. Denies fever, chills, recurrent MRSA or staph infection. She further denies dysuria, diarrhea, poor blood sugar control. Her normal blood sugars ranges between 100-1 60s. She is currently on insulin pump and does carb counting. 10/10 patient currently n.p.o. awaiting surgery this afternoon. Managed by wound care. On antibiotic coverage. No overnight fever chills. White count 10.4, creatinine at baseline at 1.6. Urine culture gram-negative bacilli. Reviewed postoperatively. 10/11-patient doing a lot better. Post excision debridement/pulse lavage irrigation along with soft tissue biopsies and cultures. Slept well overnight. No anxiety. Denies fever chills. Stable labs. White count 9.7, creatinine 1.7. Ongoing dressing changes. Further recommendations awaited from wound care. Continue antibiotic coverage Constitutional Vitals: Vital Signs Temp Pulse Resp BP Pulse Ox 97.6 F 62 16 122/67 92 10/11/20 07:24 10/11/20 07:24 10/11/20 07:24 10/11/20 07:24 10/11/20 07:24 Period Temp Pulse Resp BP Sys/Zamora Pulse Ox Last 24 Hr 96.6 F-97.9 F 49-96 8-16 112-150/60-79 91-99 Intake and Output 10/10/20 10/11/20 10/11/20 21:59 05:59 13:59 Intake Total 840 450 290 Output Total 600 Balance 840 -150 290 Weight 98.974 kg Alert and oriented Resting comfortably No anxiety No significant postoperative pain Intake & Output: Intake & Output 10/10/20 10/11/20 10/11/20 21:59 05:59 13:59 Intake Total 840 450 290 Output Total 600 Balance 840 -150 290 Weight 98.974 kg Intake: IV 300 50 50 Sodium Chloride 0.9% 1,000 ml @ 250 50 mls/hr IV .Q20H [facility] Rx#: [id number] Zosyn 3.375 gm In Dextrose 5% 50 50 50 in Water 50 ml @ 100 mls/hr IV Q6H [facility] Rx#:[id number] Oral 240 400 240 IV - Manual Only 300 Output: Void Amount 600 Other: Meal Dinner Breakfast Percent of Meal Consumed 30% 100% Feeding Ability Independent Independent Urine Appearance Clear Urine Color Bright Yellow OBJ DATA Labs CBC & Chem 7: 10/11/20 06:07 10/11/20 06:07 Labs: Abnormal Lab Results 10/11/20 10/11/20 10/10/20 06:07 06:07 06:17 WBC RBC 3.79 L Hgb 10.5 L Hct 33.3 L MCHC RDW 15.1 H MPV 11.4 H Neut % (Auto) 87.7 H Lymph % (Auto) 9.1 L Lymph # (Auto) 0.88 L Absolute Neutrophils 8.47 H ESR BUN 32 H 33 H Creatinine 1.7 H 1.6 H Glucose 283 H Calcium 8.5 L C-Reactive Protein 1.50 H Globulin Albumin/Globulin Ratio 0.9 L Urine Nitrate Ur Leukocyte Esterase Urine RBC Urine WBC Urine Bacteria Urine Mucus 10/10/20 10/09/20 10/09/20 06:17 09:50 09:30 WBC RBC 3.96 L Hgb 10.9 L Hct 35.8 L MCHC 30.4 L RDW 14.8 H MPV 11.0 H Neut % (Auto) Lymph % (Auto) Lymph # (Auto) Absolute Neutrophils ESR 44 H BUN 44 H Creatinine 1.5 H Glucose 187 H Calcium C-Reactive Protein Globulin 3.9 H Albumin/Globulin Ratio 0.9 L Urine Nitrate Pos A Ur Leukocyte Esterase 25 A Urine RBC 2 H Urine WBC 21 H Urine Bacteria Few A Urine Mucus Few A 10/09/20 09:30 WBC 12.3 H RBC Hgb 11.9 L Hct MCHC RDW MPV 11.2 H Neut % (Auto) Lymph % (Auto) Lymph # (Auto) Absolute Neutrophils 8.50 H ESR BUN Creatinine Glucose Calcium C-Reactive Protein Globulin Albumin/Globulin Ratio Urine Nitrate Ur Leukocyte Esterase Urine RBC Urine WBC Urine Bacteria Urine Mucus Meds: Medications Acetaminophen (Tylenol) 650 mg PO Q4-6HP PRN; Protocol PRN Reason: Per Pain Protocol/Fever > 101 Hydrocodone Bitart/Acetaminophen ([place] 5/325mg) 1 - 2 tab PO Q4HP PRN; Protocol PRN Reason: Per Pain Protocol Last Admin: 10/11/20 09:18 Dose: 1 tab Documented by: Atorvastatin Calcium (Lipitor) 40 mg PO [facility] Last Admin: 10/10/20 20:36 Dose: 40 mg Documented by: Bisacodyl (Dulcolax) 10 mg MI Q2-3DAYS PRN PRN Reason: Constipation Dextrose (Dextrose 50%) 0 ml IV UD PRN PRN Reason: Hypoglycemia Last Admin: 10/10/20 11:51 Dose: 50 ml Documented by: Diagnostic Test (Pha) (Accu-Chek) 1 each FS ACHS [facility] Last Admin: 10/11/20 07:17 Dose: 1 each Documented by: Docusate Sodium (Colace) 100 mg PO BID [facility] Last Admin: 10/11/20 08:11 Dose: Not Given Documented by: Furosemide (Lasix) 20 mg PO HS [facility] Last Admin: 10/10/20 20:36 Dose: 20 mg Documented by: Furosemide (Lasix) 40 mg PO DAILY [facility] Last Admin: 10/11/20 08:10 Dose: 40 mg Documented by: Glucose (Insta-Glucose) 15 gm PO PRN PRN PRN Reason: Hypoglycemia Heparin Sodium (Porcine) (Heparin) 5,000 unit SQ Q12 [facility] Last Admin: 10/11/20 08:11 Dose: 5,000 unit Documented by: Potassium Chloride 40 meq/ (Dextrose) 520 mls @ 130 mls/hr IV UD PRN PRN Reason: K+ = or < 3.5 Acetaminophen (Ofirmev) 650 mg in 65 mls @ 130 mls/hr IV Q6HP PRN; Protocol PRN Reason: Per Pain Protocol/Fever > 101 Magnesium Sulfate (Magnesium Sulfate) 2 gm in 50 mls @ 50 mls/hr IV UD PRN PRN Reason: MG = or < 1.7 Sodium Chloride (Sodium Chloride 0.9%) 1,000 mls @ 50 mls/hr IV .Q20H [facility] Stop: 10/12/20 02:39 Last Admin: 10/11/20 06:20 Dose: Not Given Documented by: Piperacillin Sod/Tazobactam (Sod 3.375 gm/ Dextrose) 50 mls @ 100 mls/hr IV Q6H [facility]; Protocol Last Infusion: 10/11/20 06:38 Dose: Infused Documented by: Vancomycin HCl 1,500 mg/ (Sodium Chloride) 500 mls @ 333.3 mls/hr IV DAILY [facility] Last Admin: 10/11/20 09:08 Dose: 333 mls/hr Documented by: Insulin Human Lispro (Humalog) 0 unit SQ ACHS [facility]; Protocol Last Admin: 10/11/20 07:23 Dose: Not Given Documented by: Iron Carb/Multivit/Arroyo/Folic Acid (Multivitamin W/Minerals) 1 tab PO DAILY [facility] Last Admin: 10/11/20 08:10 Dose: 1 tab Documented by: Melatonin (Melatonin 3mg Tablet) 3 mg PO HSP PRN PRN Reason: Insomnia Metoprolol Tartrate (Lopressor) 25 mg PO BID [facility] Last Admin: 10/11/20 08:10 Dose: 25 mg Documented by: Ondansetron HCl (Zofran Odt) 4 mg SL Q4-6HP PRN; Protocol PRN Reason: Nausea And Vomiting Ondansetron HCl (Zofran) 4 mg IV Q4-6HP PRN; Protocol PRN Reason: Nausea And Vomiting Insulin Pump 0 dose SUB-Q CONT [facility] Polyethylene Glycol (Miralax) 17 gm PO DAILYP PRN PRN Reason: Constipation Potassium Chloride (Klor-Con) 40 meq PO DAILYP PRN PRN Reason: K+ < 3.5 Pregabalin (Lyrica) 75 mg PO BID [facility] Last Admin: 10/11/20 08:10 Dose: 75 mg Documented by: Senna/Docusate Sodium (Senna Plus Tablet) 1 tab PO [facility] Last Admin: 10/10/20 20:37 Dose: Not Given Documented by: Sertraline HCl (Zoloft) 100 mg PO [facility] Last Admin: 10/10/20 20:36 Dose: 100 mg Documented by: Sodium Chloride (Saline Flush) 10 ml IV Q8 [facility] Last Admin: 10/11/20 05:38 Dose: Not Given Documented by: Vancomycin HCl (Vancomycin Per Pharmacy) 1 order IV [facility]; Protocol Zolpidem Tartrate (Ambien) 10 mg PO [facility] Last Admin: 10/10/20 22:58 Dose: Not Given Documented by: A/P Narrative A/P Narrative: * Diabetic left foot surgical wound infection/cellulitis/osteomyelitis on imaging. Postop day 1 excisional debridement. Managed per wound care. Continue broad antibiotic coverage. Await intraoperative cultures * Complicated E. coli UTI-on empiric antibiotic coverage. Await de-escalation based on urine culture results * Insulin-dependent diabetes continue insulin pump/CC diet * History of CAD continue statin/Plavix/beta-keyla * Neuropathy continue Lyrica * Anxiety disorder continue sertraline * History of CKD stage III continue monitoring * Full code * Prophylax Heparin Plan * Continue postoperative care per wound care Dr. Knutson * Continue antibiotic coverage including vancomycin and Zosyn * Pre-existing medical condition management to continue home medications as above * PT OT/wound care * Discharge planning per wound care/case management Time Spent With Patient Time: Total time spent is greater than 50% in coordination of care (as documented) at patient's floor/unit and/or counseling patient: QUALITY VTE Deep Vein Thrombosis/Pulmonary Embolism Present on Admission: No
[2020-10-11] MEDS: SERTRALINE 100 MG TABLET PO SCH (20:43)
[2020-10-11] MEDS: ATORVASTATIN 20 MG TABLET PO SCH (20:43)
[2020-10-11] MEDS: ZOLPIDEM 5 MG TABLET PO SCH (20:43)
[2020-10-11] MEDS: SENNOSIDES/DOCUSATE SODIUM 1 TAB TABLET PO SCH ×2 (20:43→21:07)
[2020-10-11] MEDS: FUROSEMIDE 20 MG TABLET PO SCH (20:43)
[2020-10-12] MEDS: PIPERACILLIN SODIUM/TAZOBACTAM 3.375 GM in DEXTROSE 5% IN WATER 50 ML IV SCH ×5 (00:12→23:37)
[2020-10-12] MEDS: 0.9 % SODIUM CHLORIDE 10 ML SYRINGE IV SCH ×3 (05:48→21:57)
[2020-10-12 06:20] LABS: Basophils # (Auto) 0.06 K/mcL (0.00-0.20); Basophils % (Auto) 0.5 % (0.0-2.0); Eosinophils # (Auto) 0.25 K/mcL (0.00-0.70); Eosinophils % (Auto) 2.1 % (0.0-7.0); Hematocrit 33.9 % (36.0-48.0); Hemoglobin 10.5 g/dL (12.0-15.0); Lymphocytes # (Auto) 3.26 K/mcL (1.50-4.80); Lymphocytes % (Auto) 27.3 % (15.0-49.0); Mean Cell Volume 88.7 fL (80.0-100.0); Mean Platelet Volume 11.6 fL (7.4-10.4); Monocytes # (Auto) 0.77 K/mcL (0.10-0.90); Monocytes % (Auto) 6.5 % (1.0-12.0); Neutrophils % (Auto) 63.6 % (38.0-78.0); Platelet Count 329 K/mcL (140-440); RBC 3.82 M/mcL (4.00-5.20); Red Cell Distribution Width 15.5 % (11.5-14.5); WBC 11.9 K/mcL (4.5-11.0)
[2020-10-12 06:50] LABS: ALT/SGPT 12 U/L (<40); AST/SGOT 13 U/L (<32); Albumin 3.4 gm/dL (3.2-5.2); Alkaline Phosphatase 88 U/L (39-117); Bilirubin,Direct < 0.2 mg/dL (<0.3); Bilirubin,Total < 0.2 mg/dL (0.1-1.0); Blood Urea Nitrogen 42 mg/dL (6-20); Calcium 8.8 mg/dL (8.6-10.4); Carbon Dioxide 26 mmol/L (22-30); Chloride 104 mmol/L (96-108); Globulin 3.4 gm/dL (2.2-3.7); Glomerular Filtration Rate 26; Glucose 164 mg/dL (70-105); Lactate Dehydrogenase 187 U/L (135-225); Phosphorous 4.4 mg/dL (2.5-4.5); Triglycerides 128 mg/dL (<150); Uric Acid 6.9 mg/dL (2.5-8.0)
--- NOTE | 2020-10-12 07:51 | Operative Note ---
DATE OF OPERATION: 10/10/2020 PREOPERATIVE DIAGNOSES: Sepsis, complicated skin and skin structure infection, open wound, diabetic foot ulcer, left anterior lateral foot surgery site. POSTOPERATIVE DIAGNOSES: Sepsis, complicated skin and skin structure infection, open wound, diabetic foot ulcer, left anterior lateral foot surgery site. PROCEDURE: Excision debridement, pulse lavage irrigation, soft tissue and bone biopsies and cultures with open packing. ANESTHESIA: General laryngeal mask airway. ANESTHESIOLOGIST: Surendra Calzada M.D. SURGEON: Bart Knutson M.D. ESTIMATED BLOOD LOSS: 20 mL. INSTRUMENT COUNT: Count of swabs, instruments and needles reported to be correct. FINDINGS: This is a postsurgical wound with exposed soft tissue and necrotic bone and undermining at 12 o'clock. Final dimensions of the wound 7 x 4 x 3 cm with undermining at 12 o'clock for 2 cm. COMPLICATIONS: None. PROCEDURE IN DETAIL: After obtaining informed consent, patient was taken to the operating room. She was already started on intravenous antibiotics on the floor. After correction of her metabolic status and blood sugars, she is taken to the operating room for debridement. She was anesthetized uneventfully in supine position using laryngeal mask airway. Timeout was called. Intravenous antibiotics were given. Preoperative photograph was taken. The left leg was widely cleaned, prepped, and draped from the lower thigh up to the toes. The patient was placed in Trendelenburg position. First, digital exploration of the wound was carried out and the pocket at 12 o'clock was explored with smooth pickups and Metzenbaum scissors. The nonviable skin overlying this area was sharply excised with pickup and scissors. Tangential excision of the wound edges and margins was carried out. The soft tissue debris was also excised to the point of healthy bright red bleeding. Hemostasis was achieved with pressure and elevation. Further exploration led to the underlying bone, which felt necrotic. This was carefully delineated and demarcated. Periosteal elevator was used to strip this bone, periosteum proximally. Using a bone rongeur, This bone was excised in stages and medical field representative samples were obtained for pathology and cultures. Once again, hemostasis was obtained by pressure and elevation. Lastly, this wound and the field was copiously irrigated with pulse lavage irrigation. The first bag consisted of 3 liters of normal saline. The second bag consisted of antibiotic solution using 50,000 units of bacitracin, 600 mg of clindamycin and 80 mg of gentamicin. Towards completion, the field was clean and bright red bleeding and oozing was noted from the wound edges and depth. The dressings consisted of Xeroform gauze placed over the wound and reinforced with packing soaked in Betadine solution. It was reinforced with 4 x 4 gauze, Kerlix, Coban, and Farahn bandages respectively. She recovered from anesthesia uneventfully, taken to the in stable satisfactory condition. Operation was well tolerated. VD:cady Job ID: [id number] Doc ID: [id number] Bart Knutson MD
[2020-10-12] MEDS: INSULIN LISPRO 1 UNIT/0.01 ML UNIT SQ SCH ×4 (07:55→21:57)
[2020-10-12] MEDS: HEPARIN 5,000 UNIT/ML VIAL SQ SCH ×2 (09:24→21:56)
[2020-10-12] MEDS: DOCUSATE SODIUM 100 MG CAPSULE PO SCH ×2 (09:25→21:57)
[2020-10-12] MEDS: METOPROLOL TARTRATE 25 MG TABLET PO SCH ×2 (09:25→21:57)
[2020-10-12] MEDS: PREGABALIN 75 MG CAPSULE PO SCH ×2 (09:25→21:56)
[2020-10-12] MEDS: MULTIVIT,THER IRON,CA,FA & MIN 1 TABLET PO SCH (09:25)
[2020-10-12] MEDS: FUROSEMIDE 40 MG TABLET PO SCH (09:25)
[2020-10-12] MEDS: HYDROcodone/APAP 5/325MG TABLET PO PRN (09:26)
[2020-10-12] MEDS: VANCOMYCIN 1,500 MG in 0.9 % SODIUM CHLORIDE 500 ML IV SCH (09:46)
--- NOTE | 2020-10-12 11:21 | General Surgery Progress Note ---
SUBJECTIVE Subjective Patient information: Note initiated : 10/12/20 at 11:15 am Service Date, if different from initiated Date: [] Patient: Mai Colon 60 y/o F admitted on 10/09/20 for Lt Foot Infection. Chief Complaint: [] Additional PMFSH (Level 3 Only): POD # 2 . Patient seen on rounds with Tiffany CORREAnursing care partner nurse. Patient had an uneventful night. Blood sugar FSBS this morning 139 Constitutional Vitals: Vital Signs Temp Pulse Resp BP Pulse Ox 97.5 F 50 L 14 144/60 95 10/12/20 06:31 10/12/20 08:00 10/12/20 08:00 10/12/20 06:31 10/12/20 08:00 Period Temp Pulse Resp BP Sys/Zamora Pulse Ox Last 24 Hr 97.5 F-98.4 F 50-56 14-18 131-144/60-71 94-97 Intake and Output 10/11/20 10/12/20 10/12/20 21:59 05:59 13:59 Intake Total 770 250 650 Output Total 150 400 Balance 620 -150 650 Weight 224 lb Intake & Output: Intake & Output 10/11/20 10/12/20 10/12/20 21:59 05:59 13:59 Intake Total 770 250 650 Output Total 150 400 Balance 620 -150 650 Weight 224 lb Intake: IV 50 50 50 Zosyn 3.375 gm In Dextrose 5% 50 50 50 in Water 50 ml @ 100 mls/hr IV Q6H [facility] Rx#:[id number] Oral 720 200 600 Output: Void Amount 150 400 Other: Meal Dinner Breakfast Percent of Meal Consumed 100% 100% Feeding Ability Independent Independent Urine Appearance Clear Clear Urine Color Bright Yellow Bright Yellow Bright Yellow Urine Odor Normal Normal Stool Size Small Stool Color Brown Stool Consistency Liquid Exam: AVSS. ZEESHAN Unremarkable , No acute changes. LEFT foot dressing taken down. Open wound with granular wound base. NO odor. Periwound skin and subcutaneous texture is at base line. NO edema of foot or leg. Wound is ready to dressed with wound VAC. Orders entered. Labs reviewed. wound c/s result pending. Bone biopsy result awaited NEEDS Infectious Disease evaluation and consult. Patient is NOT ready for discharge. NEEDS complete work out and plan of care determination. A/P Narrative A/P Narrative: Assessment: Satisfactory progress from wound care and surgery point. New wound care orders entered. Case reviewed with Dr. Tyler Amin, Infectious Diseases. Plan: Continue with current IV antibiotics and wound care orders. Await final culture and pathology reports. AWAIT Infectious Disease Recommendations. Plan of care reviewed with Dr. Laurent, Hospitalist Physician. Time Spent With Patient Time: Total time spent is greater than 50% in coordination of care (as documented) at patient's floor/unit and/or counseling patient: Total time spent with greater than 50% in coordination of care (as documented) at patient's floor/unit and/or counseling patient:: Greater than 35 minutes
--- NOTE | 2020-10-12 12:07 | Internal Med Progress Note ---
SUBJECTIVE Subjective Patient information: Note initiated : 10/12/20 at 12:02 pm Service Date, if different from initiated Date: [] Patient: Mai Colon a 60 y/o F admitted on 10/09/20 for Lt Foot Infection. Chief Complaint: [] Interval history: History of present illness: Ms. Colon is a 60 year old F known IDDM since age 16 on insulin pump/history of CAD/CKD stage III/HTN/prior right BKA/neuropathy and chronic pain who presents to the ER with 5-day onset of worsening left foot Postsurgical wound infection. Apparently patient missed her follow-up appointments around . She was seen at the wound clinic for evaluation and was found to have malodorous discharge along with swelling redness involving left foot fifth toe amputation stump surgical site undermining edges. Patient denied associated fever, chills or worsening pain. She was evaluated in the ER initial work-up was consistent with elevated white count 12.3/pyuria and imaging sensitive of osteomyelitis. Wound care recommend admission for operative intervention. Subsequently hospitalist service was consulted At the time of my evaluation patient is accompanied with her . She was able to answer most of the questions. Denies fever, chills, recurrent MRSA or staph infection. She further denies dysuria, diarrhea, poor blood sugar control. Her normal blood sugars ranges between 100-1 60s. She is currently on insulin pump and does carb counting. 10/10 patient currently n.p.o. awaiting surgery this afternoon. Managed by wound care. On antibiotic coverage. No overnight fever chills. White count 10.4, creatinine at baseline at 1.6. Urine culture gram-negative bacilli. Reviewed postoperatively. 10/11-patient doing a lot better. Post excision debridement/pulse lavage irrigation along with soft tissue biopsies and cultures. Slept well overnight. No anxiety. Denies fever chills. Stable labs. White count 9.7, creatinine 1.7. Ongoing dressing changes. Further recommendations awaited from wound care. Continue antibiotic coverage 10/12-patient seen in room. No overnight events. Cultures pending. Case discussed with Dr. Knutson wound care physician. Recommends continuing antibiotics and additional 48-hour hospitalization for wound care/antibiotics until sensitivities available. He would also discussed with ID Dr. Amin for further directions to antibiotic duration and choice. White count 11.9, hemoglobin 10.5, creatinine 2 Vanco trough 26.3. Managed per pharmacy. Staph aureus heavy growth on wound culture. Multidrug-resistant E. coli on urine culture sensitive to Zosyn. Constitutional Vitals: Vital Signs Temp Pulse Resp BP Pulse Ox 98.3 F 48 L 12 175/75 98 10/12/20 11:50 10/12/20 11:50 10/12/20 11:50 10/12/20 11:50 10/12/20 11:50 Period Temp Pulse Resp BP Sys/[place] Pulse Ox Last 24 Hr 97.5 F-98.3 F 48-56 12-18 131-175/60-75 95-98 Intake and Output 10/11/20 10/12/20 10/12/20 21:59 05:59 13:59 Intake Total 770 250 650 Output Total 150 400 Balance 620 -150 650 Weight 101.605 kg Alert oriented No anxiety Nonlabored breathing Intake & Output: Intake & Output 10/11/20 10/12/20 10/12/20 21:59 05:59 13:59 Intake Total 770 250 650 Output Total 150 400 Balance 620 -150 650 Weight 101.605 kg Intake: IV 50 50 50 Zosyn 3.375 gm In Dextrose 5% 50 50 50 in Water 50 ml @ 100 mls/hr IV Q6H [facility] Rx#:[id number] Oral 720 200 600 Output: Void Amount 150 400 Other: Meal Dinner Breakfast Percent of Meal Consumed 100% 100% Feeding Ability Independent Independent Urine Appearance Clear Clear Urine Color Bright Yellow Bright Yellow Bright Yellow Urine Odor Normal Normal Stool Size Small Stool Color Brown Stool Consistency Liquid Exam: AVSS. ZEESHAN Unremarkable , No acute changes. LEFT foot dressing taken down. Open wound with granular wound base. NO odor. Periwound skin and subcutaneous texture is at base line. NO edema of foot or leg. Wound is ready to dressed with wound VAC. Orders entered. Labs reviewed. wound c/s result pending. Bone biopsy result awaited NEEDS Infectious Disease evaluation and consult. Patient is NOT ready for discharge. NEEDS complete work out and plan of care determination. OBJ DATA Labs CBC & Chem 7: 10/12/20 05:35 10/12/20 05:35 Labs: Abnormal Lab Results 10/12/20 10/12/20 10/12/20 07:59 05:35 05:35 WBC 11.9 H RBC 3.82 L Hgb 10.5 L Hct 33.9 L MCHC RDW 15.5 H MPV 11.6 H Neut % (Auto) Lymph % (Auto) Lymph # (Auto) Absolute Neutrophils ESR BUN 42 H Creatinine 2.0 H Glucose 164 H Calcium C-Reactive Protein Albumin/Globulin Ratio Urine Nitrate Ur Leukocyte Esterase Urine RBC Urine WBC Urine Bacteria Urine Mucus Vancomycin Trough 26.3 H* 10/11/20 10/11/20 10/10/20 06:07 06:07 06:17 WBC RBC 3.79 L Hgb 10.5 L Hct 33.3 L MCHC RDW 15.1 H MPV 11.4 H Neut % (Auto) 87.7 H Lymph % (Auto) 9.1 L Lymph # (Auto) 0.88 L Absolute Neutrophils 8.47 H ESR BUN 32 H 33 H Creatinine 1.7 H 1.6 H Glucose 283 H Calcium 8.5 L C-Reactive Protein 1.50 H Albumin/Globulin Ratio 0.9 L Urine Nitrate Ur Leukocyte Esterase Urine RBC Urine WBC Urine Bacteria Urine Mucus Vancomycin Trough 10/10/20 10/09/20 06:17 09:50 WBC RBC 3.96 L Hgb 10.9 L Hct 35.8 L MCHC 30.4 L RDW 14.8 H MPV 11.0 H Neut % (Auto) Lymph % (Auto) Lymph # (Auto) Absolute Neutrophils ESR 44 H BUN Creatinine Glucose Calcium C-Reactive Protein Albumin/Globulin Ratio Urine Nitrate Pos A Ur Leukocyte Esterase 25 A Urine RBC 2 H Urine WBC 21 H Urine Bacteria Few A Urine Mucus Few A Vancomycin Trough Meds: Medications Acetaminophen (Tylenol) 650 mg PO Q4-6HP PRN; Protocol PRN Reason: Per Pain Protocol/Fever > 101 Hydrocodone Bitart/Acetaminophen ([place] 5/325mg) 1 - 2 tab PO Q4HP PRN; Protocol PRN Reason: Per Pain Protocol Last Admin: 10/12/20 09:26 Dose: 1 tab Documented by: Atorvastatin Calcium (Lipitor) 40 mg PO HS MARY Last Admin: 10/11/20 20:43 Dose: 40 mg Documented by: Bisacodyl (Dulcolax) 10 mg VT Q2-3DAYS PRN PRN Reason: Constipation Dextrose (Dextrose 50%) 0 ml IV UD PRN PRN Reason: Hypoglycemia Last Admin: 10/10/20 11:51 Dose: 50 ml Documented by: Diagnostic Test (Pha) (Accu-Chek) 1 each FS ACHS [facility] Last Admin: 10/12/20 11:33 Dose: 1 each Documented by: Docusate Sodium (Colace) 100 mg PO BID [facility] Last Admin: 10/12/20 09:25 Dose: Not Given Documented by: Furosemide (Lasix) 20 mg PO HS [facility] Last Admin: 10/11/20 20:43 Dose: 20 mg Documented by: Furosemide (Lasix) 40 mg PO DAILY [facility] Last Admin: 10/12/20 09:25 Dose: 40 mg Documented by: Glucose (Insta-Glucose) 15 gm PO PRN PRN PRN Reason: Hypoglycemia Heparin Sodium (Porcine) (Heparin) 5,000 unit SQ Q12 [facility] Last Admin: 10/12/20 09:24 Dose: 5,000 unit Documented by: Potassium Chloride 40 meq/ (Dextrose) 520 mls @ 130 mls/hr IV UD PRN PRN Reason: K+ = or < 3.5 Acetaminophen (Ofirmev) 650 mg in 65 mls @ 130 mls/hr IV Q6HP PRN; Protocol PRN Reason: Per Pain Protocol/Fever > 101 Magnesium Sulfate (Magnesium Sulfate) 2 gm in 50 mls @ 50 mls/hr IV UD PRN PRN Reason: MG = or < 1.7 Piperacillin Sod/Tazobactam (Sod 3.375 gm/ Dextrose) 50 mls @ 100 mls/hr IV Q6H [facility]; Protocol Last Admin: 10/12/20 11:34 Dose: 100 mls/hr Documented by: Insulin Human Lispro (Humalog) 0 unit SQ ACHS [facility]; Protocol Last Admin: 10/12/20 11:34 Dose: Not Given Documented by: Iron Carb/Multivit/Parcoal/Folic Acid (Multivitamin W/Minerals) 1 tab PO DAILY [facility] Last Admin: 10/12/20 09:25 Dose: 1 tab Documented by: Melatonin (Melatonin 3mg Tablet) 3 mg PO HSP PRN PRN Reason: Insomnia Metoprolol Tartrate (Lopressor) 25 mg PO BID [facility] Last Admin: 10/12/20 09:25 Dose: Not Given Documented by: Ondansetron HCl (Zofran Odt) 4 mg SL Q4-6HP PRN; Protocol PRN Reason: Nausea And Vomiting Ondansetron HCl (Zofran) 4 mg IV Q4-6HP PRN; Protocol PRN Reason: Nausea And Vomiting Insulin Pump 0 dose SUB-Q CONT [facility] Polyethylene Glycol (Miralax) 17 gm PO DAILYP PRN PRN Reason: Constipation Potassium Chloride (Klor-Con) 40 meq PO DAILYP PRN PRN Reason: K+ < 3.5 Pregabalin (Lyrica) 75 mg PO BID [facility] Last Admin: 10/12/20 09:25 Dose: 75 mg Documented by: Senna/Docusate Sodium (Senna Plus Tablet) 1 tab PO [facility] Last Admin: 10/11/20 21:07 Dose: Not Given Documented by: Sertraline HCl (Zoloft) 100 mg PO [facility] Last Admin: 10/11/20 20:43 Dose: 100 mg Documented by: Sodium Chloride (Saline Flush) 10 ml IV Q8 [facility] Last Admin: 10/12/20 05:48 Dose: 10 ml Documented by: Vancomycin HCl (Vancomycin Per Pharmacy) 1 order IV [facility]; Protocol Zolpidem Tartrate (Ambien) 10 mg PO [facility] Last Admin: 10/11/20 20:43 Dose: 10 mg Documented by: A/P Narrative A/P Narrative: * Diabetic left foot surgical wound infection/cellulitis/osteomyelitis on imaging. Postop day 2 excisional debridement. Staph aureus on cultures. Con tinue antibiotic coverage. Await de-escalation based on sensitivities. Ongoing care per Dr. Knutson * Complicated E. coli UTI-on Zosyn per sensitivities * Insulin-dependent diabetes continue insulin pump/CC diet * History of CAD continue statin/Plavix/beta-keyla * Neuropathy stable on home dose Lyrica * Anxiety disorder continue sertraline * History of CKD stage III continue monitoring * Full code * Prophylax Heparin Plan * Continue postoperative care per Dr. Knutson * De-escalate antibiotic coverage based on sensitivities * Pre-existing medical condition management to continue home medications as above * PT OT/wound care * Discharge planning per wound care/case management likely SNF Time Spent With Patient Time: Total time spent is greater than 50% in coordination of care (as documented) at patient's floor/unit and/or counseling patient: QUALITY VTE Deep Vein Thrombosis/Pulmonary Embolism Present on Admission: No
--- NOTE | 2020-10-12 16:05 | Infectious Disease Consult ---
HPI Data of Consult Primary Care Provider: Traci Virgen Consult Narrative cc:: CC: Bj Oneill is a 60-year-old woman who was admitted in the hospital on October 09 for left foot infection. She has a history of insulin-dependent diabetes as well as peripheral arterial disease. She has been started on Zosyn 3.375 g IV every 6 hours and vancomycin 1.5 g daily. Pharmacy is following levels. She had a left fifth toe amputation on June 24, 2020. A toe culture dated July 03 grew Feingoldia magna. She had a negative MRSA nasal screen on October 09. Staph aureus has grown from intraoperative specimen in October 10. Blood cultures have been drawn today. She does have a previous history of MRSA positive from nose on November 28, 2018. In addition to the staph aureus growing from a tissue specimen dated October 10, she is growing E. coli from the urine culture October 11 resistant to Unasyn and Cipro. She has renal insufficiency chronically with a creatinine of 1.5 on October 09. Creatinine today 2.0. She is somnolent today but arousable. She will answer questions. Dr. Knutson debrided left foot postop day 2. He requested consultation to assist with antibiotic recommendations. Patient reports that she has previously required PICC line and IV antibiotics. She has a previous history of a right BKA. She is 5 foot [address] Traci Virgen is her primary care provider. She has remained afebrile currently 98.3. Review of Systems Review of systems: Generally: No fevers or chills. HEENT: No headache or sore throat. No neck complaints. Pulmonary: No cough or shortness of breath. Cardiac: No chest pain. GI: No abdominal pain or diarrhea. : No dysuria. Extremities: She denies left foot pain. She has a stocking over her right BKA. Skin: No complaints or rash. PFSH PFSH All Active Problems (Updated 10/12/20 @ 16:09 by Tyler Amin MD) Foot osteomyelitis, left (Acute) CKD (chronic kidney disease) stage 3, GFR 30-59 ml/min (Acute) E coli infection (Acute) Staph aureus infection (Acute) S/P debridement (Acute) Post op infection (Acute) Angina pectoris, unspecified (Acute) Hyperglycemia due to type 1 diabetes mellitus (Acute) Status post aorto-coronary artery bypass graft (Acute) Coarse tremors (Acute) Contusion (Acute) Cellulitis of foot, left (Acute) Acute osteomyelitis of left foot (Acute) Hyperkalemia (Chronic) Diabetic ulcer of left heel (Chronic) Acute bronchitis due to respiratory syncytial virus (RSV) (Chronic) Type 1 diabetes mellitus with other specified complication (Chronic) Cardiomyopathy (Chronic) RSV infection (Chronic) Hypoxia (Chronic) Dyspnea (Chronic) Obese (Chronic) Loss of sensation (Chronic) Clotting disorder (Chronic) Bruise (Chronic) Stress incontinence (Chronic) Tingling (Chronic) Diarrhea (Chronic) Weight gain (Chronic) Sleep apnea (Chronic) Pneumonia (Chronic) Wears glasses (Chronic) COPD (chronic obstructive pulmonary disease) (Chronic) Stomach ulcer (Chronic ~07/30/16) Hypolipidemia (Chronic) Gangrene (Chronic) Hypotension (Chronic) Depression (Chronic) PVD (peripheral vascular disease) (Chronic) Hyperlipidemia (Chronic) Retinopathy (Chronic) Insomnia (Chronic) Neuropathy (Chronic) Blister of left heel (Chronic) Congestive heart failure (Chronic) Bilateral pleural effusion (Acute) Dilated cardiomyopathy (Chronic) Edema, leg (Acute) SOB (shortness of breath) (Acute) Wound dehiscence (Acute) Alyssa infection of genital region (Acute) Delayed surgical wound healing (Acute) Cellulitis and abscess of leg (Acute) Right BKA infection (Acute) Cellulitis of right anterior lower leg (Acute) Treatment (Acute) Amputation stump infection (Acute) Anemia (Acute) Epigastric abdominal pain (Acute) Dyspepsia (Acute) Cellulitis of left leg (Acute) UTI (urinary tract infection) (Acute) Pyelonephritis (Acute) SIRS (systemic inflammatory response syndrome) (Acute) Type 1 diabetes (Acute) Partial tear of left Achilles tendon (Acute) COPD exacerbation (Acute) Blister (nonthermal) of other specified part of neck, initial encounter (Chronic) Medical History (Updated 10/12/20 @ 16:09 by Tyler Amin MD) Acute bronchitis due to respiratory syncytial virus (RSV) (Chronic) Amputation stump infection (Acute) Sepsis, CSSSI Left foot toe amputation site Anemia (Acute) Bilateral pleural effusion (Acute) Blister of left heel (Chronic) Bruise (Chronic) Alyssa infection of genital region (Acute) Cardiomyopathy (Chronic) Cellulitis and abscess of leg (Acute) Cellulitis of right anterior lower leg (Acute) CKD (chronic kidney disease) stage 3, GFR 30-59 ml/min (Acute) Clotting disorder (Chronic) Congestive heart failure (Chronic) COPD (chronic obstructive pulmonary disease) (Chronic) Delayed surgical wound healing (Acute) POST OP NOTE: Post operative pain controlled with Demorol. Dressings CDI. Will give Benadryl 25 to 50 mg PRN for insomnia. Ativan 0.5 to 1.0 mg PRN for anxiety. Elevation of right BKA stump and left leg over pillows. Reassess in AM. Depression (Chronic) Diabetic ulcer of left heel (Chronic) Diarrhea (Chronic) Dilated cardiomyopathy (Chronic) Dyspepsia (Acute) Dyspnea (Chronic) Edema, leg (Acute) Epigastric abdominal pain (Acute) Gangrene (Chronic) Hyperkalemia (Chronic) Hyperlipidemia (Chronic) Hypolipidemia (Chronic) Hypotension (Chronic) Hypoxia (Chronic) Insomnia (Chronic) Loss of sensation (Chronic) Neuropathy (Chronic) Obese (Chronic) Pneumonia (Chronic) PVD (peripheral vascular disease) (Chronic) Retinopathy (Chronic) Right BKA infection (Acute) RSV infection (Chronic) Sleep apnea (Chronic) SOB (shortness of breath) (Acute) Stomach ulcer (Chronic ~07/30/16) Stress incontinence (Chronic) Tingling (Chronic) Treatment (Acute) Type 1 diabetes mellitus with other specified complication (Chronic) Wears glasses (Chronic) Weight gain (Chronic) Wound dehiscence (Acute) Surgical History (Updated 10/12/20 @ 09:22 by Bart Knutson MD) History of angioplasty (Chronic ~2015) Right Femoral Popliteal Distal Vein Graft Stenosis History of (Chronic) History of right below knee amputation (Chronic) History of surgery (Chronic) Anterior Tibial Artery Runoff (W 50% Proximal Stenosis 2016) Heart Cath/Coronaries (Right&Left) LV/IFR Pressure Wire-09/20/2016 (Pressures W Co/[place]) Achilles Tendon Lengthening Hx of CABG (Chronic) Status post angioplasty of vein (Chronic) Family History Mother Diabetes Brother Hypertriglyceridemia Father , 68 years old PE (pulmonary thromboembolism) Social History (Updated 03/11/19 @ 15:56 by Alan Chavez MD) occupational status: employed 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 smoking status: Never smoker alcohol intake frequency: does not drink substance use type: does not use MEDS/ALLERGIES Home Medications and Allergies Home Medications Medication Instructions Recorded Confirmed Type clopidogrel 75 mg PO DAILY 10/16/15 10/09/20 History metoprolol tartrate 25 mg PO BID 04/18/16 10/09/20 History sertraline 100 mg PO HS 04/18/16 10/09/20 History insulin pump cartridge 08/10/17 10/09/20 History atorvastatin 20 mg tablet 40 mg PO HS 11/26/18 10/09/20 History pregabalin 75 mg capsule 75 mg PO BID 11/26/18 10/09/20 History zaleplon 10 mg capsule 10 mg PO HS 11/26/18 10/09/20 History insulin lispro 100 unit/mL See Rx Instructions SUB-Q .COMPLEX 11/28/18 10/09/20 History subcutaneous solution furosemide 20 mg tablet See Rx Instructions .ROUTE 02/14/19 10/09/20 History .COMPLEX tab hydrocodone-acetaminophen 1 tab PO Q8H PRN 06/19/20 10/09/20 History Allergies Allergy/AdvReac Type Severity Reaction Status Date / Time adhesive Allergy Unknown Unknown Verified 10/09/20 08:58 sulfamethoxazole Allergy Unknown Unknown Verified 10/10/20 07:42 [From Septra] trimethoprim [From Septra] Allergy Unknown Unknown Verified 10/10/20 07:42 hydromorphone [Hydromorphone] AdvReac Mild Hallucinati Verified 10/09/20 08:45 ng Zolpidem [From Ambien] AdvReac Mild sleep Verified 10/09/20 08:45 walking and sleep eating Physical Examination Vital Signs Vital signs: Temp Pulse Resp BP Pulse Ox 97.9 F 59 L 14 121/53 93 10/12/20 15:40 10/12/20 15:40 10/12/20 15:40 10/12/20 15:40 10/12/20 15:40 Constitutional General appearance: other Additional Exam Additional exam: General: She seems somnolent but arousable. HEENT: Mouth slightly dry. She does have to chin lesions. No facial cellulitis. Neck is full supple no cervical adenopathy or mass. Lungs: Clear bilateral without rales wheezing or rhonchi. Heart: Regular rate and rhythm without murmur. Abdomen: Obese soft nontender. Extremities: Right BKA present. Left foot dressed. I did observe photos. Open wound at debrided left fifth toe amputation site. Skin without rash. Results Laboratory Findings CBC and BMP: 10/12/20 05:35 10/12/20 05:35 Abnormal lab findings: Abnormal Labs 10/09/20 10/09/20 10/09/20 09:30 09:30 09:50 WBC 12.3 H RBC Hgb 11.9 L Hct MCHC RDW MPV 11.2 H Neut % (Auto) Lymph % (Auto) Lymph # (Auto) Absolute Neutrophils 8.50 H ESR BUN 44 H Creatinine 1.5 H Glucose 187 H Calcium C-Reactive Protein Globulin 3.9 H Albumin/Globulin Ratio 0.9 L Urine Nitrate Pos A Ur Leukocyte Esterase 25 A Urine RBC 2 H Urine WBC 21 H Urine Bacteria Few A Urine Mucus Few A Vancomycin Trough 10/10/20 10/10/20 10/11/20 06:17 06:17 06:07 WBC RBC 3.96 L 3.79 L Hgb 10.9 L 10.5 L Hct 35.8 L 33.3 L MCHC 30.4 L RDW 14.8 H 15.1 H MPV 11.0 H 11.4 H Neut % (Auto) 87.7 H Lymph % (Auto) 9.1 L Lymph # (Auto) 0.88 L Absolute Neutrophils 8.47 H ESR 44 H BUN 33 H Creatinine 1.6 H Glucose Calcium C-Reactive Protein 1.50 H Globulin Albumin/Globulin Ratio Urine Nitrate Ur Leukocyte Esterase Urine RBC Urine WBC Urine Bacteria Urine Mucus Vancomycin Trough 10/11/20 10/12/20 10/12/20 06:07 05:35 05:35 WBC 11.9 H RBC 3.82 L Hgb 10.5 L Hct 33.9 L MCHC RDW 15.5 H MPV 11.6 H Neut % (Auto) Lymph % (Auto) Lymph # (Auto) Absolute Neutrophils ESR BUN 32 H 42 H Creatinine 1.7 H 2.0 H Glucose 283 H 164 H Calcium 8.5 L C-Reactive Protein Globulin Albumin/Globulin Ratio 0.9 L Urine Nitrate Ur Leukocyte Esterase Urine RBC Urine WBC Urine Bacteria Urine Mucus Vancomycin Trough 10/12/20 07:59 WBC RBC Hgb Hct MCHC RDW MPV Neut % (Auto) Lymph % (Auto) Lymph # (Auto) Absolute Neutrophils ESR BUN Creatinine Glucose Calcium C-Reactive Protein Globulin Albumin/Globulin Ratio Urine Nitrate Ur Leukocyte Esterase Urine RBC Urine WBC Urine Bacteria Urine Mucus Vancomycin Trough 26.3 H* Microbiology: Microbiology 10/09/20 09:30 Blood Blood Culture - Preliminary 10/09/20 09:25 Blood Blood Culture - Preliminary 10/10/20 16:02 Foot - Left Gram Stain - Preliminary 10/10/20 16:02 Foot - Left Anaerobic Culture - Preliminary 10/10/20 16:02 Foot - Left Gram Stain - Preliminary 10/10/20 16:02 Foot - Left Wound Culture - Preliminary Staphylococcus aureus 10/09/20 09:50 Urine - Clean Void Mid-Stream Urine Culture - Final Escherichia coli 10/09/20 14:33 Nose MRSA (PCR) - Final Staph aureus sensitivities pending from October 10 tissue culture. Blood cultures October 12 pending. Nares MRSA screen - October 09. On October 09 white count 12.3. Today 11.9. Creatinine on October 09 1.5. Today 2.0 today's Vanco trough 26.3 with a Vanco dosing of 1.5 g daily. Pharmacy following levels. Sed rate of 44 on October 10. She did have a positive MRSA screen on the nose November 28, 2018. Urine culture October 11 grew E. coli resistant to Unasyn and Cipro. A/P Assessment and plan (1) Foot osteomyelitis, left: Status: Acute (2) Staph aureus infection: Status: Acute (3) Type 1 diabetes: Status: Acute (4) UTI (urinary tract infection): Status: Acute (5) E coli infection: Status: Acute (6) CKD (chronic kidney disease) stage 3, GFR 30-59 ml/min: Status: Acute Narrative A/P Narrative: Mai is a 60-year-old type 1 insulin-dependent diabetic who was admitted in the hospital on October 09 for left foot infection. She has a previous history of left fifth toe amputation June 24, 2020. She had delayed wound healing and subsequent development of continued infection involving the left foot. She is postop day #2 debridement of the left fifth toe surgical site. Preliminary culture has grown staph aureus sensitivity pending. Although nares screen for MRSA was - October 09, she does have a previous history of MRSA colonization in November 2018. She is currently receiving IV vancomycin and Zosyn. Zosyn may also be dose adjusted to 3.375 g IV every 8 hours rather than every 6 hours. Pharmacy following vancomycin levels. I would expect that she would require 1 g once daily with continued monitoring of her acute on chronic kidney disease. It appears her baseline creatinine is approximately 1.5 but it increased to 2.0 today. Vanco trough was high today at 26.3. Await final cultures. I am expecting that she will require 6 weeks of IV treatment for treatment of left foot osteomyelitis. A PICC line will be placed. I am exp ecting that she will need once daily vancomycin along with once daily Invanz if cultures allow. Zosyn has also covered her E. coli UTI. She will likely need wound VAC to the left foot along with group home facility placement. Thank you very much for allowing me to be involved in [place] consultative care. Please call for questions. I would be happy to see her in follow-up in approximately 2 weeks. She will need weekly labs to include a CBC CMP sed rate CRP and a Vanco trough. Time Spent With Patient Time: Total time spent is greater than 50% in coordination of care (as documented) at patient's floor/unit and/or counseling patient: Total time spent with greater than 50% in coordination of care (as documented) at patient's floor/unit and/or counseling patient:: Greater than 35 minutes
[2020-10-12] MEDS: ATORVASTATIN 20 MG TABLET PO SCH (21:56)
[2020-10-12] MEDS: SERTRALINE 100 MG TABLET PO SCH (21:56)
[2020-10-12] MEDS: ZOLPIDEM 5 MG TABLET PO SCH (21:56)
[2020-10-12] MEDS: FUROSEMIDE 20 MG TABLET PO SCH (21:56)
[2020-10-12] MEDS: SENNOSIDES/DOCUSATE SODIUM 1 TAB TABLET PO SCH (21:57)
[2020-10-13] MEDS: PIPERACILLIN SODIUM/TAZOBACTAM 3.375 GM in DEXTROSE 5% IN WATER 50 ML IV SCH (05:48)
[2020-10-13] MEDS: 0.9 % SODIUM CHLORIDE 10 ML SYRINGE IV SCH ×3 (05:48→22:30)
[2020-10-13 06:50] LABS: Basophils # (Auto) 0.06 K/mcL (0.00-0.20); Basophils % (Auto) 0.5 % (0.0-2.0); Eosinophils # (Auto) 0.41 K/mcL (0.00-0.70); Eosinophils % (Auto) 3.6 % (0.0-7.0); Hemoglobin 10.5 g/dL (12.0-15.0); Lymphocytes # (Auto) 3.65 K/mcL (1.50-4.80); Lymphocytes % (Auto) 31.8 % (15.0-49.0); Mean Cell Volume 86.4 fL (80.0-100.0); Mean Corpuscular HGB Conc 31.8 g/dL (31.0-36.0); Mean Platelet Volume 11.8 fL (7.4-10.4); Monocytes # (Auto) 0.84 K/mcL (0.10-0.90); Monocytes % (Auto) 7.3 % (1.0-12.0); Neutrophils % (Auto) 56.8 % (38.0-78.0); Platelet Count 324 K/mcL (140-440); RBC 3.82 M/mcL (4.00-5.20); Red Cell Distribution Width 15.5 % (11.5-14.5); WBC 11.5 K/mcL (4.5-11.0)
[2020-10-13 07:11] LABS: Vancomycin,Random 17.3 ug/mL
[2020-10-13] MEDS: INSULIN LISPRO 1 UNIT/0.01 ML UNIT SQ SCH ×4 (07:26→20:57)
[2020-10-13 08:00] LABS: ALT/SGPT 12 U/L (<40); AST/SGOT 13 U/L (<32); Albumin 3.2 gm/dL (3.2-5.2); Alkaline Phosphatase 81 U/L (39-117); Bilirubin,Direct < 0.2 mg/dL (<0.3); Bilirubin,Total < 0.2 mg/dL (0.1-1.0); Blood Urea Nitrogen 42 mg/dL (6-20); Calcium 8.5 mg/dL (8.6-10.4); Carbon Dioxide 26 mmol/L (22-30); Chloride 101 mmol/L (96-108); Globulin 3.2 gm/dL (2.2-3.7); Glomerular Filtration Rate 28; Glucose 177 mg/dL (70-105); Lactate Dehydrogenase 159 U/L (135-225); Phosphorous 3.9 mg/dL (2.5-4.5); Triglycerides 107 mg/dL (<150); Uric Acid 7.5 mg/dL (2.5-8.0)
[2020-10-13] MEDS: PREGABALIN 75 MG CAPSULE PO SCH ×2 (08:45→20:57)
[2020-10-13] MEDS: FUROSEMIDE 40 MG TABLET PO SCH (08:45)
[2020-10-13] MEDS: MULTIVIT,THER IRON,CA,FA & MIN 1 TABLET PO SCH (08:45)
[2020-10-13] MEDS: HEPARIN 5,000 UNIT/ML VIAL SQ SCH ×2 (08:46→20:57)
[2020-10-13] MEDS ORDERED: VANCOMYCIN 500 MG in 0.9 % SODIUM CHLORIDE 100 ML IV ONE (09:00)
[2020-10-13] MEDS: DOCUSATE SODIUM 100 MG CAPSULE PO SCH (10:06)
[2020-10-13] MEDS: METOPROLOL TARTRATE 25 MG TABLET PO SCH ×2 (10:07→20:56)
[2020-10-13] MEDS: ERTAPENEM 1 GM in 0.9 % SODIUM CHLORIDE 50 ML IV SCH (11:05)
--- NOTE | 2020-10-13 11:40 | Internal Med Progress Note ---
SUBJECTIVE Subjective Patient information: Note initiated : 10/13/20 at 11:35 am Service Date, if different from initiated Date: [] Patient: Mai Colon a 60 y/o F admitted on 10/09/20 for Lt Foot Infection. Chief Complaint: Interval history: History of present illness: Ms. Colon is a 60 year old F known IDDM since age 16 on insulin pump/history of CAD/CKD stage III/HTN/prior right BKA/neuropathy and chronic pain who presents to the ER with 5-day onset of worsening left foot Postsurgical wound infection. Apparently patient missed her follow-up appointments around . She was seen at the wound clinic for evaluation and was found to have malodorous discharge along with swelling redness involving left foot fifth toe amputation stump surgical site undermining edges. Patient denied associated fever, chills or worsening pain. She was evaluated in the ER initial work-up was consistent with elevated white count 12.3/pyuria and imaging sensitive of osteomyelitis. Wound care recommend admission for operative intervention. Subsequently hospitalist service was consulted At the time of my evaluation patient is accompanied with her . She was able to answer most of the questions. Denies fever, chills, recurrent MRSA or staph infection. She further denies dysuria, diarrhea, poor blood sugar control. Her normal blood sugars ranges between 100-1 60s. She is currently on insulin pump and does carb counting. 10/10 patient currently n.p.o. awaiting surgery this afternoon. Managed by wound care. On antibiotic coverage. No overnight fever chills. White count 10.4, creatinine at baseline at 1.6. Urine culture gram-negative bacilli. Reviewed postoperatively. 10/11-patient doing a lot better. Post excision debridement/pulse lavage irrigation along with soft tissue biopsies and cultures. Slept well overnight. No anxiety. Denies fever chills. Stable labs. White count 9.7, creatinine 1.7. Ongoing dressing changes. Further recommendations awaited from wound care. Continue antibiotic coverage 10/12-patient seen in room. No overnight events. Cultures pending. Case discussed with Dr. Knutson wound care physician. Recommends continuing antibiotics and additional 48-hour hospitalization for wound care/antibiotics until sensitivities available. He would also discussed with ID Dr. Amin for further directions to antibiotic duration and choice. White count 11.9, hemoglobin 10.5, creatinine 2 Vanco trough 26.3. Managed per pharmacy. Staph aureus heavy growth on wound culture. Multidrug-resistant E. coli on urine culture sensitive to Zosyn. 10/13-patient switched to ertapenem/vancomycin based on culture sensitivities. MRSA on culture. PICC line placement today. Case discussed with ID Dr. Amin. Patient agreeable to SNF transfer. White count 11.5, creatinine 1.9. Vancomycin trough 17. Dosing per pharmacy. Case management coordinating SNF transfer. Currently on wound VAC per wound physician Constitutional Vitals: Vital Signs Temp Pulse Resp BP Pulse Ox 96.6 F L 53 L 14 116/54 97 10/13/20 07:22 10/13/20 07:22 10/13/20 08:00 10/13/20 07:22 10/13/20 08:00 Period Temp Pulse Resp BP Sys/[place] Pulse Ox Last 24 Hr 96.6 F-98.3 F 48-59 12-16 116-140/52-66 92-97 Intake and Output 10/12/20 10/13/20 10/13/20 21:59 05:59 13:59 Intake Total 400 300 290 Output Total 451 0 Balance -51 300 290 Weight 99.473 kg Alert oriented at bedside No anxiety Wound care ongoing BKA stump no erythema Intake & Output: Intake & Output 10/12/20 10/13/20 10/13/20 21:59 05:59 13:59 Intake Total 400 300 290 Output Total 451 0 Balance -51 300 290 Weight 99.473 kg Intake: IV 50 50 50 Zosyn 3.375 gm In Dextrose 5% 50 50 50 in Water 50 ml @ 100 mls/hr IV Q6H [facility] Rx#:[id number] Oral 350 250 240 Output: Drainage 0 0 Left Foot 0 0 Void Amount 450 # of times incontinent of urine 1 Other: Meal Dinner Breakfast Percent of Meal Consumed 75% 100% Urine Appearance Clear Clear Urine Color Bright Yellow Bright Yellow Urine Odor Normal Normal Stool Size Moderate Moderate Stool Color Brown Stool Consistency Loose Loose # Voids 1 1 # Bowel Movements 1 Exam: AVSS. ZEESHAN Unremarkable , No acute changes. LEFT foot dressing taken down. Open wound with granular wound base. NO odor. Periwound skin and subcutaneous texture is at base line. NO edema of foot or leg. Wound is ready to dressed with wound VAC. Orders entered. Labs reviewed. wound c/s result pending. Bone biopsy result awaited NEEDS Infectious Disease evaluation and consult. Patient is NOT ready for discharge. NEEDS complete work out and plan of care determination. OBJ DATA Labs CBC & Chem 7: 10/13/20 05:49 10/13/20 05:49 Labs: Abnormal Lab Results 10/13/20 10/13/20 10/12/20 05:49 05:49 07:59 WBC 11.5 H RBC 3.82 L Hgb 10.5 L Hct 33.0 L RDW 15.5 H MPV 11.8 H Neut % (Auto) Lymph % (Auto) Lymph # (Auto) Absolute Neutrophils BUN 42 H Creatinine 1.9 H Glucose 177 H Calcium 8.5 L Albumin/Globulin Ratio Vancomycin Trough 26.3 H* 10/12/20 10/12/20 10/11/20 05:35 05:35 06:07 WBC 11.9 H RBC 3.82 L Hgb 10.5 L Hct 33.9 L RDW 15.5 H MPV 11.6 H Neut % (Auto) Lymph % (Auto) Lymph # (Auto) Absolute Neutrophils BUN 42 H 32 H Creatinine 2.0 H 1.7 H Glucose 164 H 283 H Calcium 8.5 L Albumin/Globulin Ratio 0.9 L Vancomycin Trough 10/11/20 06:07 WBC RBC 3.79 L Hgb 10.5 L Hct 33.3 L RDW 15.1 H MPV 11.4 H Neut % (Auto) 87.7 H Lymph % (Auto) 9.1 L Lymph # (Auto) 0.88 L Absolute Neutrophils 8.47 H BUN Creatinine Glucose Calcium Albumin/Globulin Ratio Vancomycin Trough Meds: Medications Acetaminophen (Tylenol) 650 mg PO Q4-6HP PRN; Protocol PRN Reason: Per Pain Protocol/Fever > 101 Hydrocodone Bitart/Acetaminophen ([place] 5/325mg) 1 - 2 tab PO Q4HP PRN; Protocol PRN Reason: Per Pain Protocol Last Admin: 10/12/20 09:26 Dose: 1 tab Documented by: Atorvastatin Calcium (Lipitor) 40 mg PO HS MARY Last Admin: 10/12/20 21:56 Dose: 40 mg Documented by: Bisacodyl (Dulcolax) 10 mg CA Q2-3DAYS PRN PRN Reason: Constipation Dextrose (Dextrose 50%) 0 ml IV UD PRN PRN Reason: Hypoglycemia Last Admin: 10/10/20 11:51 Dose: 50 ml Documented by: Diagnostic Test (Pha) (Accu-Chek) 1 each FS ACHS [facility] Last Admin: 10/13/20 11:13 Dose: 1 each Documented by: Furosemide (Lasix) 20 mg PO HS [facility] Last Admin: 10/12/20 21:56 Dose: 20 mg Documented by: Furosemide (Lasix) 40 mg PO DAILY [facility] Last Admin: 10/13/20 08:45 Dose: 40 mg Documented by: Glucose (Insta-Glucose) 15 gm PO PRN PRN PRN Reason: Hypoglycemia Heparin Sodium (Porcine) (Heparin) 5,000 unit SQ Q12 [facility] Last Admin: 10/13/20 08:46 Dose: 5,000 unit Documented by: Potassium Chloride 40 meq/ (Dextrose) 520 mls @ 130 mls/hr IV UD PRN PRN Reason: K+ = or < 3.5 Acetaminophen (Ofirmev) 650 mg in 65 mls @ 130 mls/hr IV Q6HP PRN; Protocol PRN Reason: Per Pain Protocol/Fever > 101 Magnesium Sulfate (Magnesium Sulfate) 2 gm in 50 mls @ 50 mls/hr IV UD PRN PRN Reason: MG = or < 1.7 Ertapenem 1 gm/ Sodium (Chloride) 50 mls @ 100 mls/hr IV DAILY [facility] Last Admin: 10/13/20 11:05 Dose: 100 mls/hr Documented by: Insulin Human Lispro (Humalog) 0 unit SQ ACHS [facility]; Protocol Last Admin: 10/13/20 11:14 Dose: Not Given Documented by: Iron Carb/Multivit/[place]/Folic Acid (Multivitamin W/Minerals) 1 tab PO DAILY [facility] Last Admin: 10/13/20 08:45 Dose: 1 tab Documented by: Melatonin (Melatonin 3mg Tablet) 3 mg PO HSP PRN PRN Reason: Insomnia Metoprolol Tartrate (Lopressor) 25 mg PO BID [facility] Last Admin: 10/13/20 10:07 Dose: Not Given Documented by: Ondansetron HCl (Zofran Odt) 4 mg SL Q4-6HP PRN; Protocol PRN Reason: Nausea And Vomiting Ondansetron HCl (Zofran) 4 mg IV Q4-6HP PRN; Protocol PRN Reason: Nausea And Vomiting Insulin Pump 0 dose SUB-Q CONT MARY Polyethylene Glycol (Miralax) 17 gm PO DAILYP PRN PRN Reason: Constipation Potassium Chloride (Klor-Con) 40 meq PO DAILYP PRN PRN Reason: K+ < 3.5 Pregabalin (Lyrica) 75 mg PO BID [facility] Last Admin: 10/13/20 08:45 Dose: 75 mg Documented by: Senna/Docusate Sodium (Senna Plus Tablet) 1 tab PO HS [facility] Last Admin: 10/12/20 21:57 Dose: Not Given Documented by: Sertraline HCl (Zoloft) 100 mg PO [facility] Last Admin: 10/12/20 21:56 Dose: 100 mg Documented by: Sodium Chloride (Saline Flush) 10 ml IV Q8 [facility] Last Admin: 10/13/20 05:48 Dose: 10 ml Documented by: Vancomycin HCl (Vancomycin Per Pharmacy) 1 order IV UD [facility]; Protocol Zolpidem Tartrate (Ambien) 10 mg PO [facility] Last Admin: 10/12/20 21:56 Dose: 10 mg Documented by: A/P Narrative A/P Narrative: * Diabetic left foot surgical wound infection/cellulitis/osteomyelitis on imaging. Postop day 2 excisional debridement. MRSA on cultures . On I nvanz/vancomycin per ID recommendations. Ongoing wound care/wound VAC per Dr. Law * Complicated E. coli UTI-on Invanz * Insulin-dependent diabetes continue insulin pump/CC diet * History of CAD continue statin/Plavix/beta-keyla * Neuropathy stable on home dose Lyrica * Anxiety disorder continue sertraline * History of CKD stage III continue monitoring * Full code * Prophylax Heparin Plan * Continue wound care/wound VAC per Dr. Knutson * PICC line placement/Invanz and vancomycin * Pre-existing medical condition management to continue home medications as above * Daily PT OT/wound care * Discharge planning per wound care/likely SNF Time Spent With Patient Time: Total time spent is greater than 50% in coordination of care (as documented) at patient's floor/unit and/or counseling patient: QUALITY VTE Deep Vein Thrombosis/Pulmonary Embolism Present on Admission: No
--- NOTE | 2020-10-13 11:41 | Surgical Pathology Report ---
Histology Microscopic Diagnosis Specimen A- SKIN AND SOFT TISSUE, LEFT FOOT, EXCISION: -- MARKED DERMAL ACUTE AND CHRONIC INFLAMMATION WITH ASSOCIATED GRANULATION TISSUE, CONSISTENT WITH ORGANIZING ABSCESS. Procedural Impression Left foot wound. Gross Description Received in formalin designated soft tissue left foot, is a 2 x 1.4 x 0.4 cm fragment of de león-latif tissue. The margin is inked black. Sectioned, totally submitted in one cassette. Microscopic Diagnosis Specimen B- SOFT TISSUE, LEFT FOOT TENDON, EXCISION: -- TENDINOUS TISSUE WITH MARKED ACUTE INFLAMMATION AND PATCHY NECROSIS. Gross Description Received in formalin designated left foot tendon, is a 1.2 x 0.8 x 0.4 cm fragment of de león-latif tissue. Totally submitted in one cassette. Microscopic Diagnosis Specimen C- BONE, LEFT FOOT, BIOPSY: -- PARTIALLY NECROTIC BONE WITH ASSOCIATED ACUTE OSTEOMYELITIS. (DMT:sln) Gross Description Received in formalin designated left foot bone, are two de león-latif portions of bone. The first is 0.6 x 0.4 x 0.2 cm. The second is 1.2 x 0.6 x 0.4 cm. Totally submitted in one cassette following decalcification. (KGW:adj) Electronically Signed Tyler Herron MD, FCAP Electronically Signed 10/13/2020 11:39 AM
[2020-10-13] MEDS: HYDROcodone/APAP 5/325MG TABLET PO PRN ×3 (13:34→20:58)
--- NOTE | 2020-10-13 15:29 | XRay Report ---
INDICATION: picc line placement TECHNIQUE: AP portable semiupright chest x-ray COMPARISON: None FINDINGS:Left-sided PICC line with its tip at the junction of the superior vena cava and right atrium Lungs:No pulmonary parenchymal consolidation Heart, vascular:There is cardiomegaly. Vascularity is prominent. There is peribronchial thickening and appearance consistent with interstitial pulmonary edema. Correlation follow-up radiographs recommended Mediastinum, nilay:No mediastinal widening. No hilar mass Pleura:No pleural fluid. No pleural-based mass or calcification Skeletal:Negative. IMPRESSION: 1. Left-sided PICC line with its tip at the junction of the superior vena cava and right atrium 2. Cardiomegaly and findings consistent with interstitial pulmonary edema Interpreted and Authenticated by: Christian Flynn 10/13/20
--- NOTE | 2020-10-13 16:47 | Infectious Disease Consult ---
HPI Data of Consult Primary Care Provider: Traci Virgen Consult Narrative cc:: CC: Bjtameka Oneill is a 60-year-old woman with insulin-dependent diabetes. She is receiving treatment for a left foot osteomyelitis with culture positive for MSSA. She is postop day #4 pathology returned as osteomyelitis. She has been switched to iv invanz. PFSH PFSH All Active Problems (Updated 10/13/20 @ 16:47 by Tyler Amin MD) Foot osteomyelitis, left (Acute) CKD (chronic kidney disease) stage 3, GFR 30-59 ml/min (Acute) E coli infection (Acute) Staph aureus infection (Acute) S/P debridement (Acute) Post op infection (Acute) Angina pectoris, unspecified (Acute) Hyperglycemia due to type 1 diabetes mellitus (Acute) Status post aorto-coronary artery bypass graft (Acute) Coarse tremors (Acute) Contusion (Acute) Cellulitis of foot, left (Acute) Acute osteomyelitis of left foot (Acute) Hyperkalemia (Chronic) Diabetic ulcer of left heel (Chronic) Acute bronchitis due to respiratory syncytial virus (RSV) (Chronic) Type 1 diabetes mellitus with other specified complication (Chronic) Cardiomyopathy (Chronic) RSV infection (Chronic) Hypoxia (Chronic) Dyspnea (Chronic) Obese (Chronic) Loss of sensation (Chronic) Clotting disorder (Chronic) Bruise (Chronic) Stress incontinence (Chronic) Tingling (Chronic) Diarrhea (Chronic) Weight gain (Chronic) Sleep apnea (Chronic) Pneumonia (Chronic) Wears glasses (Chronic) COPD (chronic obstructive pulmonary disease) (Chronic) Stomach ulcer (Chronic ~07/30/16) Hypolipidemia (Chronic) Gangrene (Chronic) Hypotension (Chronic) Depression (Chronic) PVD (peripheral vascular disease) (Chronic) Hyperlipidemia (Chronic) Retinopathy (Chronic) Insomnia (Chronic) Neuropathy (Chronic) Blister of left heel (Chronic) Congestive heart failure (Chronic) Bilateral pleural effusion (Acute) Dilated cardiomyopathy (Chronic) Edema, leg (Acute) SOB (shortness of breath) (Acute) Wound dehiscence (Acute) Alyssa infection of genital region (Acute) Delayed surgical wound healing (Acute) Cellulitis and abscess of leg (Acute) Right BKA infection (Acute) Cellulitis of right anterior lower leg (Acute) Treatment (Acute) Amputation stump infection (Acute) Anemia (Acute) Epigastric abdominal pain (Acute) Dyspepsia (Acute) Cellulitis of left leg (Acute) UTI (urinary tract infection) (Acute) Pyelonephritis (Acute) SIRS (systemic inflammatory response syndrome) (Acute) Type 1 diabetes (Acute) Partial tear of left Achilles tendon (Acute) COPD exacerbation (Acute) Blister (nonthermal) of other specified part of neck, initial encounter (Chronic) Medical History (Updated 10/13/20 @ 16:47 by Tlyer Amin MD) Acute bronchitis due to respiratory syncytial virus (RSV) (Chronic) Amputation stump infection (Acute) Sepsis, CSSSI Left foot toe amputation site Anemia (Acute) Bilateral pleural effusion (Acute) Blister of left heel (Chronic) Bruise (Chronic) Alyssa infection of genital region (Acute) Cardiomyopathy (Chronic) Cellulitis and abscess of leg (Acute) Cellulitis of right anterior lower leg (Acute) CKD (chronic kidney disease) stage 3, GFR 30-59 ml/min (Acute) Clotting disorder (Chronic) Congestive heart failure (Chronic) COPD (chronic obstructive pulmonary disease) (Chronic) Delayed surgical wound healing (Acute) POST OP NOTE: Post operative pain controlled with Demorol. Dressings CDI. Will give Benadryl 25 to 50 mg PRN for insomnia. Ativan 0.5 to 1.0 mg PRN for anxiety. Elevation of right BKA stump and left leg over pillows. Reassess in AM. Depression (Chronic) Diabetic ulcer of left heel (Chronic) Diarrhea (Chronic) Dilated cardiomyopathy (Chronic) Dyspepsia (Acute) Dyspnea (Chronic) Edema, leg (Acute) Epigastric abdominal pain (Acute) Gangrene (Chronic) Hyperkalemia (Chronic) Hyperlipidemia (Chronic) Hypolipidemia (Chronic) Hypotension (Chronic) Hypoxia (Chronic) Insomnia (Chronic) Loss of sensation (Chronic) Neuropathy (Chronic) Obese (Chronic) Pneumonia (Chronic) PVD (peripheral vascular disease) (Chronic) Retinopathy (Chronic) Right BKA infection (Acute) RSV infection (Chronic) Sleep apnea (Chronic) SOB (shortness of breath) (Acute) Stomach ulcer (Chronic ~07/30/16) Stress incontinence (Chronic) Tingling (Chronic) Treatment (Acute) Type 1 diabetes mellitus with other specified complication (Chronic) POD#4 left foot debridement for osteomyelitis. MSSA on culture. 6 weeks of Invanz planned.no further need for vancomycin. Follow-up in 2 weeks. Weekly labs recommended. [facility]. Zosyn could be substituted for Invanz if [facility] not accepted by [facility]. Wears glasses (Chronic) Weight gain (Chronic) Wound dehiscence (Acute) Surgical History (Updated 10/12/20 @ 09:22 by Bart Knutson MD) History of angioplasty (Chronic ~2015) Right Femoral Popliteal Distal Vein Graft Stenosis History of (Chronic) History of right below knee amputation (Chronic) History of surgery (Chronic) Anterior Tibial Artery Runoff (W 50% Proximal Stenosis 2015) Heart Cath/Coronaries (Right&Left) LV/IFR Pressure Wire-09/20/2016 (Pressures W Co/[place]) Achilles Tendon Lengthening Hx of CABG (Chronic) Status post angioplasty of vein (Chronic) Family History Mother Diabetes Brother Hypertriglyceridemia Father , 68 years old PE (pulmonary thromboembolism) Social History (Updated 03/11/19 @ 15:56 by Alan Chavez MD) occupational status: 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 [employer] smoking status: Never smoker alcohol intake frequency: does not drink substance use type: does not use MEDS/ALLERGIES Home Medications and Allergies Home Medications Medication Instructions Recorded Confirmed Type clopidogrel 75 mg PO DAILY 10/16/15 10/09/20 History metoprolol tartrate 25 mg PO BID 04/18/16 10/09/20 History sertraline 100 mg PO HS 04/18/16 10/09/20 History insulin pump cartridge 08/10/17 10/09/20 History atorvastatin 20 mg tablet 40 mg PO HS 11/26/18 10/09/20 History pregabalin 75 mg capsule 75 mg PO BID 11/26/18 10/09/20 History zaleplon 10 mg capsule 10 mg PO HS 11/26/18 10/09/20 History insulin lispro 100 unit/mL See Rx Instructions SUB-Q .COMPLEX 11/28/18 10/09/20 History subcutaneous solution furosemide 20 mg tablet See Rx Instructions .ROUTE 02/14/19 10/09/20 History .COMPLEX tab hydrocodone-acetaminophen 1 tab PO Q8H PRN 06/19/20 10/09/20 History Allergies Allergy/AdvReac Type Severity Reaction Status Date / Time adhesive Allergy Unknown Unknown Verified 10/09/20 08:58 sulfamethoxazole Allergy Unknown Unknown Verified 10/10/20 07:42 [From Septra] trimethoprim [From Septra] Allergy Unknown Unknown Verified 10/10/20 07:42 hydromorphone [Hydromorphone] AdvReac Mild Hallucinati Verified 10/09/20 08:45 ng Zolpidem [From Ambien] AdvReac Mild sleep Verified 10/09/20 08:45 walking and sleep eating Physical Examination Vital Signs Vital signs: Temp Pulse Resp BP Pulse Ox 97.5 F 51 L 14 129/61 95 10/13/20 16:00 10/13/20 16:00 10/13/20 16:00 10/13/20 16:00 10/13/20 16:00 Additional Exam Additional exam: left picc line in place. left foot sonido wrapped with wound vac. skin without rash. Results Laboratory Findings CBC and BMP: 10/13/20 05:49 10/13/20 05:49 Abnormal lab findings: Abnormal Labs 10/09/20 10/09/20 10/09/20 09:30 09:30 09:50 WBC 12.3 H RBC Hgb 11.9 L Hct MCHC RDW MPV 11.2 H Neut % (Auto) Lymph % (Auto) Lymph # (Auto) Absolute Neutrophils 8.50 H ESR BUN 44 H Creatinine 1.5 H Glucose 187 H Calcium C-Reactive Protein Globulin 3.9 H Albumin/Globulin Ratio 0.9 L Urine Nitrate Pos A Ur Leukocyte Esterase 25 A Urine RBC 2 H Urine WBC 21 H Urine Bacteria Few A Urine Mucus Few A Vancomycin Trough 10/10/20 10/10/20 10/11/20 06:17 06:17 06:07 WBC RBC 3.96 L 3.79 L Hgb 10.9 L 10.5 L Hct 35.8 L 33.3 L MCHC 30.4 L RDW 14.8 H 15.1 H MPV 11.0 H 11.4 H Neut % (Auto) 87.7 H Lymph % (Auto) 9.1 L Lymph # (Auto) 0.88 L Absolute Neutrophils 8.47 H ESR 44 H BUN 33 H Creatinine 1.6 H Glucose Calcium C-Reactive Protein 1.50 H Globulin Albumin/Globulin Ratio Urine Nitrate Ur Leukocyte Esterase Urine RBC Urine WBC Urine Bacteria Urine Mucus Vancomycin Trough 10/11/20 10/12/20 10/12/20 06:07 05:35 05:35 WBC 11.9 H RBC 3.82 L Hgb 10.5 L Hct 33.9 L MCHC RDW 15.5 H MPV 11.6 H Neut % (Auto) Lymph % (Auto) Lymph # (Auto) Absolute Neutrophils ESR BUN 32 H 42 H Creatinine 1.7 H 2.0 H Glucose 283 H 164 H Calcium 8.5 L C-Reactive Protein Globulin Albumin/Globulin Ratio 0.9 L Urine Nitrate Ur Leukocyte Esterase Urine RBC Urine WBC Urine Bacteria Urine Mucus Vancomycin Trough 10/12/20 10/13/20 10/13/20 07:59 05:49 05:49 WBC 11.5 H RBC 3.82 L Hgb 10.5 L Hct 33.0 L MCHC RDW 15.5 H MPV 11.8 H Neut % (Auto) Lymph % (Auto) Lymph # (Auto) Absolute Neutrophils ESR BUN 42 H Creatinine 1.9 H Glucose 177 H Calcium 8.5 L C-Reactive Protein Globulin Albumin/Globulin Ratio Urine Nitrate Ur Leukocyte Esterase Urine RBC Urine WBC Urine Bacteria Urine Mucus Vancomycin Trough 26.3 H* Microbiology: Microbiology 10/10/20 16:02 Foot - Left Gram Stain - Preliminary 10/10/20 16:02 Foot - Left Anaerobic Culture - Preliminary 10/09/20 09:30 Blood Blood Culture - Preliminary 10/09/20 09:25 Blood Blood Culture - Preliminary 10/10/20 16:02 Foot - Left Gram Stain - Final 10/10/20 16:02 Foot - Left Wound Culture - Final Staphylococcus aureus 10/09/20 09:50 Urine - Clean Void Mid-Stream Urine Culture - Final Escherichia coli 10/09/20 14:33 Nose MRSA (PCR) - Final A/P Assessment and plan (1) Foot osteomyelitis, left: Status: Acute (2) Staph aureus infection: Status: Acute (3) CKD (chronic kidney disease) stage 3, GFR 30-59 ml/min: Status: Acute (4) Type 1 diabetes mellitus with other specified complication: Status: Chronic Comment: POD#4 left foot debridement for osteomyelitis. MSSA on culture. 6 weeks of Invanz planned.no further need for vancomycin. Follow-up in 2 weeks. Weekly labs recommended. [facility]. Zosyn could be substituted for Invanz if In[facility]z not accepted by [facility] facility. Time Spent With Patient Time: Total time spent is greater than 50% in coordination of care (as documented) at patient's floor/unit and/or counseling patient:
--- NOTE | 2020-10-13 18:37 | General Surgery Progress Note ---
SUBJECTIVE Subjective Patient information: Note initiated : 10/13/20 at 6:33 pm Service Date, if different from initiated Date: [] Patient: Mai Colon 60 y/o F admitted on 10/09/20 for Lt Foot Infection. Chief Complaint: [] Additional PMFSH (Level 3 Only): Patient comfortable with on going treatment. Reviewed progress during the day with Tiffany CORREA and updated patient''s Hugo Colon. Reviewed Dr. Amin's consult and progress note. Thanks. Constitutional Vitals: Vital Signs Temp Pulse Resp BP Pulse Ox 97.5 F 51 L 14 129/61 95 10/13/20 16:00 10/13/20 16:00 10/13/20 16:00 10/13/20 16:00 10/13/20 16:00 Period Temp Pulse Resp BP Sys/Zamora Pulse Ox Last 24 Hr 96.6 F-98.2 F 49-54 14-16 116-148/52-66 93-97 Intake and Output 10/13/20 10/13/20 10/13/20 05:59 13:59 21:59 Intake Total 840 632 3220 Output Total 0 Balance 805 743 4744 Intake & Output: Intake & Output 10/13/20 10/13/20 10/13/20 05:59 13:59 21:59 Intake Total 611 415 6985 Output Total 0 Balance 920 974 4079 Intake: IV 50 50 Zosyn 3.375 gm In Dextrose 5% 50 50 in Water 50 ml @ 100 mls/hr IV Q6H [facility] Rx#:[id number] Oral [phone] Output: Drainage 0 Left Foot 0 Other: Meal Breakfast Lunch Percent of Meal Consumed 100% 100% Urine Appearance Clear Urine Color Bright Yellow Urine Odor Normal Stool Size Moderate Stool Color Brown Stool Consistency Loose # Voids 1 2 Exam: AVSS. Labs reviewed. Wound VAC working well. A/P Narrative A/P Narrative: Assessment: Continue current treatment. Plan: Will review continuation of care plans with patient, family and Brianna ARTEAGA in AM. Time Spent With Patient Time: Total time spent is greater than 50% in coordination of care (as documented) at patient's floor/unit and/or counseling patient: Total time spent with greater than 50% in coordination of care (as documented) at patient's floor/unit and/or counseling patient:: Greater than 35 minutes
[2020-10-13] MEDS: ZOLPIDEM 5 MG TABLET PO SCH (20:56)
[2020-10-13] MEDS: SERTRALINE 100 MG TABLET PO SCH (20:56)
[2020-10-13] MEDS: ATORVASTATIN 20 MG TABLET PO SCH (20:56)
[2020-10-13] MEDS: FUROSEMIDE 20 MG TABLET PO SCH (20:56)
[2020-10-13] MEDS: SENNOSIDES/DOCUSATE SODIUM 1 TAB TABLET PO SCH (20:57)
[2020-10-14] MEDS ORDERED: 0.9 % SODIUM CHLORIDE 10 ML SYRINGE IV PRN (00:31)
[2020-10-14] MEDS: 0.9 % SODIUM CHLORIDE 10 ML SYRINGE IV SCH (05:24)
[2020-10-14 06:32] LABS: Basophils # (Auto) 0.04 K/mcL (0.00-0.20); Basophils % (Auto) 0.3 % (0.0-2.0); Eosinophils # (Auto) 0.37 K/mcL (0.00-0.70); Eosinophils % (Auto) 3.2 % (0.0-7.0); Hematocrit 32.9 % (36.0-48.0); Hemoglobin 10.6 g/dL (12.0-15.0); Lymphocytes # (Auto) 3.54 K/mcL (1.50-4.80); Lymphocytes % (Auto) 30.8 % (15.0-49.0); Mean Cell Volume 85.2 fL (80.0-100.0); Mean Corpuscular HGB Conc 32.2 g/dL (31.0-36.0); Mean Platelet Volume 11.7 fL (7.4-10.4); Monocytes # (Auto) 0.82 K/mcL (0.10-0.90); Monocytes % (Auto) 7.1 % (1.0-12.0); Neutrophils % (Auto) 58.6 % (38.0-78.0); Platelet Count 323 K/mcL (140-440); RBC 3.86 M/mcL (4.00-5.20); Red Cell Distribution Width 15.1 % (11.5-14.5); WBC 11.5 K/mcL (4.5-11.0)
[2020-10-14 07:05] LABS: ALT/SGPT 16 U/L (<40); AST/SGOT 16 U/L (<32); Albumin 3.2 gm/dL (3.2-5.2); Alkaline Phosphatase 88 U/L (39-117); Bilirubin,Direct < 0.2 mg/dL (<0.3); Bilirubin,Total < 0.2 mg/dL (0.1-1.0); Blood Urea Nitrogen 36 mg/dL (6-20); Calcium 8.8 mg/dL (8.6-10.4); Carbon Dioxide 30 mmol/L (22-30); Chloride 100 mmol/L (96-108); Globulin 3.3 gm/dL (2.2-3.7); Glomerular Filtration Rate 37; Glucose 163 mg/dL (70-105); Lactate Dehydrogenase 179 U/L (135-225); Phosphorous 3.6 mg/dL (2.5-4.5); Triglycerides 138 mg/dL (<150); Uric Acid 7.4 mg/dL (2.5-8.0)
[2020-10-14] MEDS: INSULIN LISPRO 1 UNIT/0.01 ML UNIT SQ SCH ×2 (07:21→11:13)
[2020-10-14] MEDS ORDERED: 0.9 % SODIUM CHLORIDE 10 ML SYRINGE IV SCH (09:00)
[2020-10-14] MEDS: HEPARIN 5,000 UNIT/ML VIAL SQ SCH (09:09)
[2020-10-14] MEDS: HYDROcodone/APAP 5/325MG TABLET PO PRN (09:09)
[2020-10-14] MEDS: MULTIVIT,THER IRON,CA,FA & MIN 1 TABLET PO SCH (09:10)
[2020-10-14] MEDS: FUROSEMIDE 40 MG TABLET PO SCH (09:10)
[2020-10-14] MEDS: ERTAPENEM 1 GM in 0.9 % SODIUM CHLORIDE 50 ML IV SCH (09:19)
[2020-10-14] MEDS: METOPROLOL TARTRATE 25 MG TABLET PO SCH (09:19)
[2020-10-14] MEDS: PREGABALIN 75 MG CAPSULE PO SCH (09:46)
--- NOTE | 2020-10-14 10:57 | Discharge Summary ---
Discharge Provider Provider Patient information: Note initiated : 10/14/20 at 10:53 am Service Date, if different from initiated Date: [] Patient: Mai Colon 60 y/o F admitted on 10/09/20 for Lt Foot Infection. Discharge diagnosis * Diabetic left foot surgical wound infection/cellulitis/osteomyelitis on imaging. Postop day 3 excisional debridement. MRSA on cultures . On Invanz per ID recommendations. Continue wound care per Dr. Knutson * Complicated E. coli UTI- clinically resolved on antibiotics * Insulin-dependent diabetes continue insulin pump/CC diet * History of CAD continue statin/Plavix/beta-keyla * Neuropathy stable on home dose Lyrica * Anxiety disorder continue sertraline * History of CKD stage III continue monitoring Brief hospital course Interval history: History of present illness: Ms. Colon is a 60 year old F kn own IDDM since age 16 on insulin pump/history of CAD/CKD stage III/HTN/prior right BKA/neuropathy and chronic pain who presents to the ER with 5-day onset of worsening left foot Postsurgical wound infection. Apparently patient missed her follow-up appointments around . She was seen at the wound clinic for evaluation and was found to have malodorous discharge along with swelling redne ss involving left foot fifth toe amputation stump surgical site undermining edges. Patient denied associated fever, chills or worsening pain. She was evaluated in the ER initial work-up was consistent with elevated white count 12.3/pyuria and imaging sensitive of osteomyelitis. Wound care recommend admission for operative intervention. Subsequently hospitalist service was consulted At the time of my evaluation patient is accompanied with her . She was able to answer most of the questions. Denies fever, chills, recurrent MRSA or staph infection. She further denies dysuria, diarrhea, poor blood sugar control. Her normal blood sugars ranges between 100-1 60s. She is currently on insulin pump and does carb counting. 10/10 patient currently n.p.o. awaiting surgery this afternoon. Managed by wound care. On antibiotic coverage. No overnight fever chills. White count 10.4, creatinine at baseline at 1.6. Urine culture gram-negative bacilli. Reviewed postoperatively. 10/11-patient doing a lot better. Post excision debridement/pulse lavage irrigation along with soft tissue biopsies and cultures. Slept well overnight. No anxiety. Denies fever chills. Stable labs. White count 9.7, creatinine 1.7. Ongoing dressing changes. Further recommendations awaited from wound care. Continue antibiotic coverage 10/12-patient seen in room. No overnight events. Cultures pending. Case discussed with Dr. Knutson wound care physician. Recommends continuing antibiotics and additional 48-hour hospitalization for wound care/antibiotics until sensitivities available. He would also discussed with ID Dr. Amin for further directions to antibiotic duration and choice. White count 11.9, hemoglobin 10.5, creatinine 2 Vanco trough 26.3. Managed per pharmacy. Staph a ureus heavy growth on wound culture. Multidrug-resistant E. coli on urine culture sensitive to Zosyn. 10/13-patient switched to ertapenem/vancomycin based on culture sensitivities. MRSA on culture. PICC line placement today. Case discussed with ID Dr. Amin. Patient agreeable to SNF transfer. White count 11.5, creatinine 1.9. Vancomycin trough 17. Dosing per pharmacy. Case management coordinating SNF transfer. Currently on wound VAC per wound physician 10/14-patient doing well. No overnight events. No concerns per staff. No fever chills nausea vomiting. Wound care ongoing. Wound care recommends discharging to SNF with continued wound treatment/6 weeks IV Invanz as per ID recommendations. PICC line placed. Patient agreeable to discharge plan. Detailed instructions as below. Date of admission: 10/09/20 14:35 Discharge date: 10/14/20 Primary care physician: Traci Virgen Consults: 10/09/20 Consult to Physician [CONS] Stat Comment: Consulting Provider: Bj Laurent Reason For Exam: Physician to Consult Consult to Physician [CONS] Stat Comment: Consulting Provider: Bart Knutson Reason For Exam: Physician to Consult 10/10/20 15:03 Consult to Physician [CONS] Routine Comment: Consulting Provider: Bj Laurent Reason For Exam: Physician to Consult 10/12/20 10:51 Consult to Physician [CONS] Routine Comment: Consulting Provider: Tyler Amin Reason For Exam: Left foot infection Discharge Meds Discharge Medications Home Medications clopidogrel 75 mg PO DAILY 10/16/15 [History Confirmed 10/09/20 Last Taken 10/08/20] metoprolol tartrate 25 mg PO BID 04/18/16 [History Confirmed 10/09/20 Last Taken 10/08/20] sertraline 100 mg PO HS 04/18/16 [History Confirmed 10/09/20 Last Taken 10/08/20] insulin pump cartridge 08/10/17 [History Confirmed 10/09/20 Last Taken 09/09/17 17:00] atorvastatin 20 mg tablet 40 mg PO HS 11/26/18 [History Confirmed 10/09/20 Last Taken 10/08/20] pregabalin 75 mg capsule 75 mg PO BID 11/26/18 [History Confirmed 10/09/20 Last Taken 10/08/20] zaleplon 10 mg capsule 10 mg PO HS 11/26/18 [History Confirmed 10/09/20 Last Taken 10/08/20] insulin lispro 100 unit/mL subcutaneous solution See Rx Instructions SUB-Q .COMPLEX 11/28/18 [History Confirmed 10/09/20 Last Taken 10/09/20] furosemide 20 mg tablet See Rx Instructions .ROUTE .COMPLEX tab 02/14/19 [History Confirmed 10/09/20 Last Taken 10/08/20] hydrocodone-acetaminophen 1 tab PO Q8H PRN 06/19/20 [History Confirmed 10/09/20 Last Taken 10/07/20] ertapenem [Invanz] 1 g IM Q24H #42 each 10/14/20 [Rx Last Taken Unknown] COURSE Hospital Course Hospital course: . Discharge diagnosis: Osteomyelitis Time Spent with Patient Time attestation: Total time spent providing and/or coordinating discharge services: EXAM Constitutional Vitals: Temp Pulse Resp BP Pulse Ox 97.2 F 52 L 16 156/71 94 10/14/20 07:28 10/14/20 07:28 10/14/20 07:28 10/14/20 07:28 10/14/20 07:28 Discharge Data Data Completed and Pending Labs on day of discharge: Labs from last 24 hours 10/14/20 10/14/20 10/14/20 08:06 05:52 05:52 WBC 11.5 H RBC 3.86 L Hgb 10.6 L Hct 32.9 L MCV 85.2 MCH 27.5 MCHC 32.2 RDW 15.1 H Plt Count 323 MPV 11.7 H Neut % (Auto) 58.6 Lymph % (Auto) 30.8 [place] % (Auto) 7.1 Eos % (Auto) 3.2 Baso % (Auto) 0.3 Lymph # (Auto) 3.54 [place] # (Auto) 0.82 Eos # (Auto) 0.37 Baso # (Auto) 0.04 Absolute Neutrophils 6.74 Sodium 139 Potassium 3.7 Chloride 100 Carbon Dioxide 30 Anion Gap 9.0 BUN 36 H Creatinine 1.5 H GFR Calculation 37 Glucose 163 H Uric Acid 7.4 Calcium 8.8 Phosphorus 3.6 Magnesium 2.0 Total Bilirubin < 0.2 Direct Bilirubin < 0.2 GGT 25 AST 16 ALT 16 Alkaline Phosphatase 88 Lactate Dehydrogenase 179 Total Protein 6.5 Albumin 3.2 Globulin 3.3 Albumin/Globulin Ratio 1.0 Triglycerides 138 Vancomycin Trough 11.9 Preliminary micro results at discharge 10/10/20 16:02 Gram Stain - Preliminary Foot - Left Anaerobic Culture - Preliminary Discharge Plan Patient/Caregiver Discharge Instructions Activity: increase activity as tolerated Diet: Consistent Carbohydrate Activity Restrictions/Additional Instructions: Continue Invanz for [address] Amin Follow-up with Dr. Amin in 4 to 6 weeks Continue wound care/dressing changes per Dr. Knutson wound physician PT OT ST eval Diabetic diet Therapies as tolerated Prescriptions: New ertapenem [Invanz] 1 gram recon soln 1 g IM Q24H Qty: 42 RF: 0 Continued Lyrica 75 mg capsule 75 mg PO BID RF: 0 atorvastatin 20 mg tablet 40 mg PO HS RF: 0 zaleplon 10 mg capsule 10 mg PO HS RF: 0 Humalog U-100 Insulin 100 unit/mL solution See Rx Instructions SUB-Q .COMPLEX RF: 0 furosemide 20 mg tablet See Rx Instructions .ROUTE .COMPLEX RF: 0 clopidogrel 75 MG tablet 75 mg PO DAILY RF: 0 metoprolol tartrate 25 MG tablet 25 mg PO BID RF: 0 sertraline 100 MG tablet 100 mg PO HS RF: 0 (DME) insulin pump cartridge 1 EACH cartridge 0.75 units SQ Q1 RF: 0 hydrocodone-acetaminophen 7.5-325 mg Tablet 1 tab PO Q8H PRN (Reason: Pain) RF: 0 Follow Up Plan Follow up with: Traci Virgen MD [Primary Care Provider] - Tyler Amin MD [Physician] - 10/28/20 1:00 pm Patient Disposition: Xfer SNF Rehab Potential: Fair I certify that the patient requires SNF services: Yes Overall status at discharge: patient is progressing back to baseline Discharge Orders: Discharge Order (Routine); Ordered 10/14/20 Ordered By: Bj BENOIT VTE Deep Vein Thrombosis/Pulmonary Embolism Present on Admission: No
[2020-10-14] MEDS ORDERED: VANCOMYCIN 500 MG in 0.9 % SODIUM CHLORIDE 100 ML IV SCH (11:00)
--- NOTE | 2020-10-14 11:23 | General Surgery Progress Note ---
SUBJECTIVE Subjective Patient information: Note initiated : 10/14/20 at 11:15 am Service Date, if different from initiated Date: [] Patient: Mai Colon 60 y/o F admitted on 10/09/20 for Lt Foot Infection. Chief Complaint: [] Additional PMFSH (Level 3 Only): Resting comfortably. DENIES any systemic complaints at this time. In USOH at her baseline,. Constitutional Vitals: Vital Signs Temp Pulse Resp BP Pulse Ox 97.2 F 52 L 16 156/71 94 10/14/20 07:28 10/14/20 07:28 10/14/20 07:28 10/14/20 07:28 10/14/20 07:28 Period Temp Pulse Resp BP Sys/Zamora Pulse Ox Last 24 Hr 97.2 F-98.3 F 51-55 12-16 129-156/58-72 91-96 Intake and Output 10/13/20 10/14/20 10/14/20 21:59 05:59 13:59 Intake Total 1280 0 Balance 1280 0 Weight 219 lb 11.2 oz Intake & Output: Intake & Output 10/13/20 10/14/20 10/14/20 21:59 05:59 13:59 Intake Total 1280 0 Balance 1280 0 Weight 219 lb 11.2 oz Intake: Oral 1280 0 Other: Meal Lunch Percent of Meal Consumed 100% Stool Consistency Loose # Voids 2 1 # Bowel Movements 1 Exam: AVSS, NO changes ZEESHAN. Left foot wound is granulating. VAC changed On IV INVANZ per ID, Dr. Amin. A/P Narrative A/P Narrative: Assessment: S/P Revision / Excision debridement of LEFT foot surgical wound with soft tissue and bone biopsies. Acute osteomyelitis. UTI Uncontrolled DM , Improving. Uro Sepsis UTI / CSSSI Improving. Acute osteomyelitis on IV INANZ per ID. Discharge plan to Rehab noted. Current wound care orders and VAC settings to continue. F/U at wound care clinic after discharge. Time Spent With Patient Time: Total time spent is greater than 50% in coordination of care (as documented) at patient's floor/unit and/or counseling patient: Total time spent with greater than 50% in coordination of care (as documented) at patient's floor/unit and/or counseling patient:: 25 - 35 minutes
== END 2020-10-14 12:35 | DRG 857 ==
LOC: ED 08:45 → MEDSUR 14:35
PROVIDERS: ADMIT Internal Medicine; ATTEND Internal Medicine